=== PATIENT | male | born 1930 | race Caucasian/White ===

== ENCOUNTER 2016-08-08 23:02 | Observation (INO) ==
[2016-08-08] MEDS ORDERED: Furosemide 40 MG/4 ML VIAL IVP ONE (23:57)
[2016-08-09 00:03] LABS: Basophils # 0.1 K/mcL (0.0-0.2); Basophils % 0.5 %; Eosinophils # 0.4 K/mcL (0.0-0.6); Hemoglobin 14.2 g/dL (12.9-16.9); Immature Granulocytes % 0.4 % (0-4); Lymphocytes # 1.7 K/mcL (0.6-4.6); Lymphocytes % 16.5 %; Mean Corpuscular HGB Conc 33.8 g/dL (31.6-35.5); Mean Corpuscular Hemoglobin 34.6 pg (28.0-33.3); Mean Corpuscular Volume 102.4 fL (83.0-100.0); Mean Platelet Volume 11.5 fL (9.4-12.4); Monocytes # 0.9 K/mcL (0.0-1.3); Monocytes % 8.8 %; Neutrophils # 7.4 K/mcL (1.6-8.9); Platelet Count 142 K/mcL (140-400); Red Cell Distribution Width 12.8 % (11.5-14.5); Segmented Neutrophils % 69.8 %
[2016-08-09 00:11] LABS: Potassium 4.3 mEq/L (3.5-4.5)
--- NOTE | 2016-08-09 00:47 | Emergency Department Note ---
Disposition Clinical Impression: Dyspnea, Edema extremities Disposition: Admitted As Inpatient SOB HPI - General Chief Complaint: ED Shortness of Breath/Dyspnea Stated Complaint: "Poss. Pneumonia"/cough Time Seen by Provider: 08/08/16 23:24 Source: patient Mode of arrival: ambulatory Limitations: no limitations Nursing Notes Reviewed: Yes Vital Signs Reviewed: Yes - History of Present Illness patient presents to the ED with complaints of shortness of breath, possible pneumonia. He has been having a moist productive cough with white sputum production. He states he has had decreased energy over the last several weeks/ No reported fever. He has been having increased lower leg and pedal edema. He was recently started on Lasix 20 mg and states it has helped "a little". Denies any chest pain at this time, "maybe just a little tightness". Pt Subjective Complaint: shortness of breath Onset (ago): unknown Context: recent illness Severity: moderate Consistency/Duration: gradually worsening Improves with: nothing Worsens with: exertion Associated symptoms: Reports: sputum production, orthopnea, other (lower extremity edema ) Treatment prior to arrival: none Cough present: Yes Cough Description: Involuntary, Wheezy Cough Frequency: Intermittent Sputum production: Yes Sputum Amount: Moderate Sputum Color: White - Related Data Home oxygen amount: none Home Medications Medication Instructions Recorded Confirmed Lisinopril-HCTZ 20-12.5 [Prinzide 1 each PO DAILY 12/11/15 03/27/16 20-12.5] Omeprazole [PriLOSEC] 20 mg PO DAILY 12/11/15 03/27/16 Allergies Allergy/AdvReac Type Severity Reaction Status Date / Time Iodinated Contrast- Oral and Allergy Swelling Verified 08/08/16 23:07 IV Dye of Lip/Tongue/Throat All systems ED: reviewed and negative except as stated. Constitutional: Denies: fever, chills, weakness, weight change Eyes: Denies: eye pain, eye discharge, vision change ENT ED: Denies: ear pain, throat pain, dental pain, hearing loss, epistaxis, congestion, dysphagia Respiratory: Reports: cough, dyspnea, wheezes Gastrointestinal: Denies: abdominal pain, nausea, vomiting, diarrhea, constipation, hematemesis, melena, hematochezia Genitourinary: Denies: urgency, dysuria, frequency, hematuria Integumentary: Reports: other (pedal and lower leg edema 3+) Neurological: Denies: headache, weakness, numbness, paresthesias, confusion, abnormal gait, vertigo Endocrine: Denies: fatigue Hematological/Lymphatic: Denies: easy bleeding, easy bruising Past Medical History - Past Medical History Attestation: Yes The following information was validated with the patient. Source: patient, nursing notes reviewed Medical history: Reports: glaucoma, hypertension, RA, other Surgical history: Reports: appendectomy, cholecystectomy Psychiatric history: Reports: no psych history - Social History Smoking Status: Former smoker Smokeless Tobacco Status: No Alcohol use: Reports: occasionally Drug use: Reports: none Physical Exam - General Limitations: no limitations General appearance: alert - Head Head exam: atraumatic, normocephalic, normal inspection - Eye Eye exam: Present: normal appearance, PERRL, EOMI - ENT ENT exam: normal exam, normal oropharynx, mucous membranes moist - Neck Neck exam: Present: normal inspection, full ROM, trachea midline - Chest Chest inspection: Present: normal inspection, symmetric chest wall rise - Expanded Respiratory Exam Location: rales: Left, Right, Lower - Cardiovascular Cardiovascular exam: Present: regular rate, normal rhythm, normal heart sounds - Abdominal Exam Abdominal exam: Present: soft, Non-Tender. Absent: tenderness, distention, guarding, rebound, rigidity - Extremities Exam Extremities exam: Present: normal inspection, full ROM. Absent: tenderness, pedal edema - Expanded Lower Extremity Exam Gait: observed and normal - Back Exam Back exam: Present: normal inspection, full ROM. Absent: tenderness - Neurological Exam Neurological exam: Present: alert, oriented X3 - Psychiatric Psychiatric exam: Present: normal affect, normal mood - Skin Skin exam: Present: warm, dry, intact, normal color Course Vital Signs Temperature 98.6 F 08/08/16 23:07 Pulse Rate 77 08/08/16 23:07 Respiratory Rate 20 08/08/16 23:07 Blood Pressure 173/71 08/08/16 23:07 O2 Sat by Pulse Oximetry 95 08/08/16 23:07 Temperature 98.6 F 08/08/16 23:07 Pulse Rate 78 08/09/16 00:50 Respiratory Rate 18 08/09/16 00:50 Blood Pressure 156/79 08/09/16 00:50 O2 Sat by Pulse Oximetry 96 08/09/16 00:50 Oxygen Delivery Oxygen Delivery Room Air Shortness of Breath/Dyspnea - Lab Data Lab results reviewed: Yes I reviewed the patient's lab results. Result diagrams: 08/08/16 23:30 08/08/16 23:30 Lab Results 08/08/16 08/08/16 08/08/16 Range/Units 23:30 23:30 23:30 WBC 10.6 (4.3-11.1) K/mcL RBC 4.10 L (4.19-5.50) M/mcL Hgb 14.2 (12.9-16.9) g/dL Hct 42.0 (37.5-50.1) % MCV 102.4 H (83.0-100.0) fL MCH 34.6 H (28.0-33.3) pg MCHC 33.8 (31.6-35.5) g/dL RDW 12.8 (11.5-14.5) % Plt Count 142 (140-400) K/mcL MPV 11.5 (9.4-12.4) fL Immature Gran % 0.4 (0-4) % Seg Neutrophils % 69.8 % Lymphocytes % 16.5 % Monocytes % 8.8 % Eosinophils % 4.0 % Basophils % 0.5 % Neutrophils # 7.4 (1.6-8.9) K/mcL Lymphocytes # 1.7 (0.6-4.6) K/mcL Monocytes # 0.9 (0.0-1.3) K/mcL Eosinophils # 0.4 (0.0-0.6) K/mcL Basophils # 0.1 (0.0-0.2) K/mcL Sodium 137 (136-145) mEq/L Potassium 4.3 (3.5-4.5) mEq/L Chloride 103 (98-109) mEq/L Carbon Dioxide 24 (19-29) mEq/L BUN 38 H (8-26) mg/dL Creatinine 1.79 H (0.72-1.25) mg/dL Est GFR ( Amer) 44 L (> 60) Est GFR (Non-Af Amer) 36 L (> 60) BUN/Creatinine Ratio 21 (6-26) Glucose 171 H (70-99) mg/dL Calculated Osmolality 297 (280-300) Lactic Acid 1.3 (0.5-2.2) mmol/L Calcium 10.0 (8.6-10.8) mg/dL Troponin I (0-0.03) ng/mL B-Natriuretic Peptide (0-100) pg/mL 08/08/16 08/08/16 Range/Units 23:30 23:30 WBC (4.3-11.1) K/mcL RBC (4.19-5.50) M/mcL Hgb (12.9-16.9) g/dL Hct (37.5-50.1) % MCV (83.0-100.0) fL MCH (28.0-33.3) pg MCHC (31.6-35.5) g/dL RDW (11.5-14.5) % Plt Count (140-400) K/mcL MPV (9.4-12.4) fL Immature Gran % (0-4) % Seg Neutrophils % % Lymphocytes % % Monocytes % % Eosinophils % % Basophils % % Neutrophils # (1.6-8.9) K/mcL Lymphocytes # (0.6-4.6) K/mcL Monocytes # (0.0-1.3) K/mcL Eosinophils # (0.0-0.6) K/mcL Basophils # (0.0-0.2) K/mcL Sodium (136-145) mEq/L Potassium (3.5-4.5) mEq/L Chloride (98-109) mEq/L Carbon Dioxide (19-29) mEq/L BUN (8-26) mg/dL Creatinine (0.72-1.25) mg/dL Est GFR ( Amer) (> 60) Est GFR (Non-Af Amer) (> 60) BUN/Creatinine Ratio (6-26) Glucose (70-99) mg/dL Calculated Osmolality (280-300) Lactic Acid (0.5-2.2) mmol/L Calcium (8.6-10.8) mg/dL Troponin I 0.05 H* (0-0.03) ng/mL B-Natriuretic Peptide 144 H (0-100) pg/mL - Radiology Data Radiology results reviewed: Yes I reviewed the patient's radiology results. - EKG Data EKG attestation: Yes I reviewed and interpreted this EKG. EKG shows normal: Reports: sinus rhythm Rate: Reports: normal Rhythm: Reports: NSR Attestation Statement - Attestation Attestation: I, Yovanny Christensen MD, personally evaluated this patient and discussed their management with the midlevel provicer, PAC/PATENT SEARCHER. I reviewed the midlevel provider 's note and agree with the documented findings, medical decision making, and plan of care. 86-year-old male presents to the emergency department with a complaint of increasing cough and shortness of breath for about 2 weeks prior to arrival. Symptoms became much worse today with increased shortness of breath. He denies any chest pain but has felt a little tight in his chest. No fever. On examination patient is a well-developed well-nourished well-appearing elderly male in no acute distress. He is alert and oriented 3. There is no cyanosis or diaphoresis. Chest is nontender to palpation. Breath sounds are clear and equal bilaterally. Heart regular rate and rhythm. There is a grade 2 /6 systolic murmur. Abdomen is soft and nontender with normal bowel sounds. 2 + pedal edema. Labs reviewed. Troponin 0.05. EKG shows a sinus rhythm with a first-degree block. No STEMI. Consider lateral ischemia. Chest x-ray shows borderline cardiomegaly but no overt pulmonary edema or infiltrate. The hospitalist, Dr. Hoffmann, was consulted and accepted admission of the patient.
[2016-08-09] MEDS ORDERED: Aspirin 81 MG TAB.CHEW PO ONE (00:51)
[2016-08-09] MEDS ORDERED: Ondansetron 4 MG/2 ML VIAL IVP PRN (02:01)
[2016-08-09] MEDS ORDERED: Acetaminophen 325 MG TABLET PO PRN (02:01)
[2016-08-09] MEDS ORDERED: *HR* HYDROcodone/Acet 5/325 mg TABLET PO PRN (02:01)
[2016-08-09] MEDS ORDERED: *HR* Morphine 2 MG/ML SYRINGE IVP PRN (02:01)
[2016-08-09] MEDS ORDERED: Naloxone 0.4 MG/ML INJ IVP PRN (02:01)
[2016-08-09] MEDS ORDERED: Nitroglycerin 0.4 MG TAB.SUBL SL PRN (02:08)
--- NOTE | 2016-08-09 02:10 | Internal Med History&Physical ---
Date of Encounter: 08/09/16 Time of Encounter: 02:10 Assessment and Plan (1) Diastolic CHF, acute Current visit: Yes Status: Acute Acute diastolic CHF exacerbation, mild With bilateral severe lower extremity edema Start Lasix IV, strict I's and O's, daily weight Omeprazole for GI prophylaxis and subcutaneous heparin for DVT prophylaxis. Patient will be admitted for observation. Full code. Time spent on this admission 40 minutes. High risk of respiratory failure (2) Leg edema Current visit: Yes Status: Acute Qualifiers: Laterality: bilateral Qualified Code(s): R60.0 - Localized edema (3) Elevated troponin Current visit: Yes Status: Acute Elevated troponins likely secondary to demand ischemia Start aspirin, Lipitor, telemetry, follow troponins (4) Accelerated hypertension Current visit: Yes Status: Acute Continue lisinopril, may order hydralazine as needed Hold hydrochlorothiazide (5) Bronchitis Current visit: Yes Status: Acute Acute bronchitis viral versus bacterial likely contributing to the shortness of breath Start Rocephin (6) Acute renal failure superimposed on stage 3 chronic kidney disease Current visit: Yes Status: Acute Internal Medicine - H&P: HPI Chief complaint: Shortness of breath Admitted From: Emergency Dept History of present illness: Mr. Pond is a 86 year old male with a past medical history of diastolic dysfunction, chronic kidney disease stage III, borderline diabetes, hypertension , GERD, came to the emergency room complaining of persistent difficulty breathing that has been getting worse over the past 2 weeks. The patient complains some chest tightness on and off and mainly severe leg swelling. His creatinine has increased from 1.24 up to 1.79. Denies any chest pain at the moment his troponin is 0.05 chest x-ray shows cardiomegaly megaly and although the report does not mention anything else, it appears to have mild vascular congestion. His legs are extremely swollen. The pressure is 173/71, received 1 dose of Lasix at the emergency room. Feels weak. Says that he was started recently on Lasix 20 mg daily but apparently was not enough. Has been outside a lot and drinking lots of fluids. Has been also complaining of productive cough mainly with whitish phlegm, no sick contacts. Past Med Surg Social Fam HX - Past Medical History Medical history: CHF (Diastolic dysfunction), glaucoma, hypertension, other ( Osteoarthritis, macular degeneration, right carotid cavernous fistula, chronic kidney disease stage III, diverticulosis, focal cord tumor status post excision , asbestosis) Psychiatric history: no psych history - Past Surgical History Surgical History: appendectomy, cholecystectomy, other (Brain aneurysm embolization, vocal cord polyp removed, sinus surgery) - Social History Smoking Status: Former smoker Packs per day: Quit 50 years ago after leaving the [email or web address] Smokeless Tobacco Status: No Alcohol use: occasionally Drug use: none - Additional Family History Additional family history: Father with cancer, mother with gastric and liver cancer Internal Medicine - H&P: Meds Lisinopril-HCTZ 20-12.5 [Prinzide 20-12.5] 1 each PO DAILY 12/11/15 [History] Omeprazole [PriLOSEC] 20 mg PO DAILY 12/11/15 [History] Allergies Iodinated Contrast- Oral and IV Dye Allergy (Verified 08/08/16 23:07) Swelling of Lip/Tongue/Throat All Systems PM: A 10-system review of systems was performed and is negative for pertinent findings except as documented above in the HPI. Review of systems: Persistent shortness of breath. Other systems out of the 10 reviewed were negative - Constitutional Vitals: Temp Pulse Resp BP Pulse Ox 98.6 F 78 18 156/79 96 08/08/16 23:07 08/09/16 00:50 08/09/16 00:50 08/09/16 00:50 08/09/16 00:50 General appearance: Present: A&O X 3 - Head Head exam: Present: atraumatic, normocephalic - Eye Eye exam: Present: PERRL, conjuntiva pink, sclera anicteric Pupils: Present: PERRL - Neck Neck exam general surgery: Present: supple, trachea midline. Absent: lymphadenopathy - Respiratory Respiratory exam: Present: CTAB, rales (Findings diffuse basilar crackles). Absent: accessory muscle use, rhonchi, wheezes - Cardiovascular Cardiovascular exam: Present: RRR, +S1, +S2. Absent: diastolic murmur, gallop, rubs, systolic murmur - GI/Abdominal GI/Abdominal exam: Present: normal bowel sounds, soft, no peritoneal signs. Absent: distended, tenderness - Extremities Exam Extremities exam: Present: pedal edema (+3 pitting edema in both lower extremities with a small excoriations), warm, radial pulses palpable and symetrical. Absent: calf tenderness, cyanotic - Neurological Exam Neurological exam: Present: CN II-XII intact, oriented X3, no focal deficits. Absent: pronater drift, facial droop, speech deficit - Skin Skin exam: Present: dry, intact Internal Med - H&P Results - Labs CBC & Chem 7: 08/08/16 23:30 08/08/16 23:30
[2016-08-09] MEDS: *HR* Enoxaparin 40 MG/0.4 ML SYRINGE SQ SCH (05:47)
[2016-08-09] MEDS: Aspirin Enteric Coated 81 MG Tablet PO SCH (09:23)
[2016-08-09] MEDS: Lisinopril 20 MG TABLET PO SCH (09:23)
[2016-08-09] MEDS: Furosemide 40 MG/4 ML VIAL IVP SCH ×2 (09:23→21:09)
[2016-08-09] MEDS ORDERED: Albuterol 2.5 MG/3 ML NEBULIZER IH PRN (09:40)
--- NOTE | 2016-08-09 10:47 | Event Note ---
Date of Encounter: 08/09/16 Time of Encounter: 09:20 Patient was seen and assessed this morning at about 9:20 AM. He is wearing a mask in his room because he does not want to make the rest of the sick. Patient is pleasant, alert and oriented. He is not in respiratory distress and speaks easily in full sentences. He is not requiring supplemental oxygen. His lungs are clear and diminished anteriorly and posteriorly. There is no rhonchi , wheezing, Rales, or stridor. Patient does have a heart murmur. He is also being admitted for diastolic CHF. Patient had echocardiogram done in April of this year, ejection fraction is preserved, and it showed mild concentric left ventricular hypertrophy and mild diastolic dysfunction. He also had a stress test about the same time that was negative for ischemia or infarct. Patient states that he was unaware that he had congestive heart failure. His BNP is only slightly elevated at 144. His initial troponins were elevated at 0.05 and 0.04. The last troponin this morning at about 10 AM was 0.02. He does have +2-3 nonpitting bilateral ankle and pedal edema. He says this is normal for him. He will be getting IV Lasix, strict I&O, and daily weights. Patient does not have a history of COPD. His chest x-ray in the emergency department was negative, his lungs are clear and diminished, he has no leukocytosis and no fever. He was treated initially in the emergency department with Rocephin for possible bronchitis. He does report that his chest feels tight. I will hold antibiotics for right now and monitor patient condition and vital signs. Will treat with DuoNeb nebs and albuterol nebs when necessary. Creatinine is elevated at 1.79. Patient is getting Lasix 40 mg IV twice a day. We will need to closely monitor his volume status. Patient is on telemetry. Is not having chest pain or difficulty breathing. Continue to monitor his blood pressure.
[2016-08-09] MEDS: Ipratropium/Albuterol Neb 3 ML IH SCH ×4 (11:12→23:59)
[2016-08-10 03:54] LABS: Basophils % 0.5 %; Eosinophils # 0.3 K/mcL (0.0-0.6); Eosinophils % 3.6 %; Hematocrit 40.4 % (37.5-50.1); Hemoglobin 13.6 g/dL (12.9-16.9); Immature Granulocytes % 0.3 % (0-4); Lymphocytes # 1.8 K/mcL (0.6-4.6); Lymphocytes % 22.9 %; Mean Corpuscular HGB Conc 33.7 g/dL (31.6-35.5); Mean Corpuscular Hemoglobin 34.6 pg (28.0-33.3); Mean Corpuscular Volume 102.8 fL (83.0-100.0); Mean Platelet Volume 11.6 fL (9.4-12.4); Monocytes # 0.9 K/mcL (0.0-1.3); Monocytes % 11.3 %; Neutrophils # 4.7 K/mcL (1.6-8.9); Platelet Count 144 K/mcL (140-400); Red Blood Count 3.93 M/mcL (4.19-5.50); Red Cell Distribution Width 12.7 % (11.5-14.5); Segmented Neutrophils % 61.4 %
[2016-08-10 04:02] LABS: Calcium 9.3 mg/dL (8.6-10.8); Potassium 3.9 mEq/L (3.5-4.5)
[2016-08-10] MEDS: Ipratropium/Albuterol Neb 3 ML IH SCH ×6 (04:16→23:46)
[2016-08-10] MEDS: *HR* Enoxaparin 40 MG/0.4 ML SYRINGE SQ SCH (05:52)
[2016-08-10] MEDS: Aspirin Enteric Coated 81 MG Tablet PO SCH (08:19)
[2016-08-10] MEDS: Furosemide 40 MG/4 ML VIAL IVP SCH (08:19)
[2016-08-10] MEDS: Lisinopril 20 MG TABLET PO SCH (08:19)
--- NOTE | 2016-08-10 09:53 | Electrocardiograph Report ---
[address] [place], [place] [address] Test Date: 2016-08-09 Pat Name: Wood Pond Department: [id number] Room: 3B12 Gender: M [employer]: : [id number] Requested By: Magui Chaves Order Number: [id number] Reading MD: Caden Huffman MD Measurements Intervals [place] Rate: 71 P: 6 PA: 227 QRS: -51 QRSD: 114 T: 112 QT: 402 QTc: 424 Interpretive Statements SINUS RHYTHM WITH FIRST DEGREE AV BLOCK MARKED LEFT AXIS DEVIATION VOLTAGE CRITERIA FOR LVH LATERAL ISCHEMIA Electronically Signed On 08-10-2016 9:52:14 EDT by Caden Huffman MD
--- NOTE | 2016-08-10 14:05 | Internal Med Progress Note ---
Date of Encounter: 08/10/16 Time of Encounter: 10:40 - Assessment and plan (1) Diastolic CHF, acute Current Visit: Yes Status: Acute Assessment and plan: Echocardiogram done in April, showed preserved ejection fraction, mild concentric left ventricular hypertrophy, and mild diastolic dysfunction. Stress test was done about that same time that was negative for ischemia or infarct. Patient states initially that he was unaware that he had congestive heart failure. BNP was only slightly elevated on admission at 144. Initial troponins were 0.05 and 0.04 and then last one was 0.02. These are most likely elevated due to demand ischemia from the CHF. He does have +2 nonpitting bilateral ankle edema and mild pedal edema. He says this is normal for him only may be slight little bit worse today. Patient was getting IV Lasix 40 mg twice a day, due to his renal function, I have decreased it to 40 mg IV daily. We will continue to monitor his volume status. Lungs are clear diminished. Continue telemetry Lasix 40 mg IV daily Monitor pedal edema (2) Leg edema Current Visit: Yes Status: Acute Assessment and plan: Plan as above Qualifiers: Laterality: bilateral Qualified Code(s): R60.0 - Localized edema (3) Elevated troponin Current Visit: Yes Status: Acute Assessment and plan: Elevated troponin on initial presentation, most likely due to demand ischemia. Last level was within normal limits at 0.02. Continue telemetry (4) Accelerated hypertension Current Visit: Yes Status: Chronic Assessment and plan: Well-controlled in inpatient setting. Chronic. Continue home medications. (5) Bronchitis Current Visit: Yes Status: Acute Assessment and plan: Patient has no leukocytosis, no fever. He was being treated with Rocephin for bronchitis. He does say that his chest feels tight. His lungs are clear but diminished. He has been treated with duo nebs albuterol nebs were necessary. Antibiotics were stopped yesterday continue to monitor patient condition. (6) DVT prophylaxis Current Visit: Yes Status: Acute Assessment and plan: Lovenox (7) ITALO (acute kidney injury) Current Visit: Yes Status: Acute Assessment and plan: Patient presents with elevated creatinine. In reviewing prior trend, creatinines have been within normal limits. Most likely prerenal due to dehydration. I have decreased the Lasix since yesterday and renal function has improved slightly. If creatinine does not improve, consider retroperitoneal ultrasound and nephrology consult. Patient also appears to have mild CHF. We will need to monitor volume status. - Time Spent With Patient less than 15 minutes - Subjective Interval history: Patient was seen and assessed at about 10:40 AM. He is alert and oriented resting quietly in his room. His lungs are clear and diminished posteriorly. We did discuss him staying again due to his renal function, it does appear to be improving today. I have decreased his Lasix to 40 mg daily instead of 40 mg twice a day. Peripheral edema appears to be unchanged, patient states that he normally has peripheral edema but this is slightly worse than normal. We will continue to monitor his volume status. - Constitutional Vitals: Temp Pulse Resp BP Pulse Ox 97 F L 78 14 116/58 93 08/10/16 10:59 08/10/16 10:59 08/10/16 11:12 08/10/16 10:59 08/10/16 11:12 General appearance: Present: A&O X 3, pleasant, no acute distress, answers questions appropriately - Head Head exam: Present: normal inspection - Eye Eye exam: Present: EOMI, normal appearance, conjuntiva pink - ENT ENT exam: Present: mucous membranes moist, normal exam - Neck Neck exam general surgery: Present: normal inspection. Absent: lymphadenopathy , tenderness - Respiratory Respiratory exam: Present: decreased breath sounds, CTAB. Absent: rales, respiratory distress, rhonchi, stridor, wheezes - Cardiovascular Cardiovascular exam: Present: RRR, +S1, +S2. Absent: diastolic murmur, systolic murmur - GI/Abdominal GI/Abdominal exam: Present: normal bowel sounds, soft. Absent: distended, tenderness - Extremities Exam Extremities exam: Present: normal capillary refill, normal inspection, pedal edema, warm, radial pulses palpable and symetrical. Absent: tenderness - Neurological Exam Neurological exam: Present: alert, oriented X3, no focal deficits, strengths equal and symetr throughout. Absent: facial droop, speech deficit Internal Medicine: Result - Labs CBC & Chem 7: 08/10/16 03:14 08/10/16 03:14 Labs: Short CBC 08/10/16 Range/Units 03:14 WBC 7.7 (4.3-11.1) K/mcL Hgb 13.6 (12.9-16.9) g/dL Hct 40.4 (37.5-50.1) % Plt Count 144 (140-400) K/mcL Neutrophils # 4.7 (1.6-8.9) K/mcL BMP 08/10/16 03:14 Sodium 139 Potassium 3.9 Chloride 98 Carbon Dioxide 30 H BUN 39 H Creatinine 1.70 H Glucose 145 H Calcium 9.3 Consult Discharge Plan - Plan Referrals: Pranav Whitfield MD [Primary Care Provider] -
[2016-08-11] MEDS: Ipratropium/Albuterol Neb 3 ML IH SCH ×3 (03:38→11:18)
[2016-08-11] MEDS: *HR* Enoxaparin 40 MG/0.4 ML SYRINGE SQ SCH (05:49)
[2016-08-11 06:17] LABS: Basophils % 0.4 %; Eosinophils # 0.5 K/mcL (0.0-0.6); Eosinophils % 5.2 %; Hematocrit 40.1 % (37.5-50.1); Hemoglobin 13.7 g/dL (12.9-16.9); Immature Granulocytes % 0.4 % (0-4); Lymphocytes % 22.5 %; Mean Corpuscular HGB Conc 34.2 g/dL (31.6-35.5); Mean Corpuscular Hemoglobin 34.7 pg (28.0-33.3); Mean Corpuscular Volume 101.5 fL (83.0-100.0); Mean Platelet Volume 11.8 fL (9.4-12.4); Monocytes # 0.9 K/mcL (0.0-1.3); Monocytes % 10.4 %; Neutrophils # 5.5 K/mcL (1.6-8.9); Platelet Count 162 K/mcL (140-400); Red Blood Count 3.95 M/mcL (4.19-5.50); Red Cell Distribution Width 12.8 % (11.5-14.5); Segmented Neutrophils % 61.1 %
[2016-08-11 06:33] LABS: Calcium 9.3 mg/dL (8.6-10.8); Potassium 4.1 mEq/L (3.5-4.5)
[2016-08-11] MEDS: Furosemide 40 MG/4 ML VIAL IVP SCH (09:45)
[2016-08-11] MEDS: Aspirin Enteric Coated 81 MG Tablet PO SCH (09:46)
[2016-08-11 11:04] VITALS: BP 150/67
[2016-08-11] MEDS: Lisinopril 20 MG TABLET PO SCH (11:25)
--- NOTE | 2016-08-11 12:00 | Discharge Summary ---
Date of Encounter: 08/11/16 Time of Encounter: 10:00 - Discharge Diagnosis (1) Diastolic heart failure Priority: Primary Status: Acute Comments: Treated for acute exacerbation. Patient denied shortness of breath above his norm and stated his pedal edema had resolved to its baseline. Echocardiogram from April revealing preserved ejection fraction of 65% with mild diastolic dysfunction. Qualifiers: Heart failure chronicity: acute on chronic Qualified Code(s): I50.33 - Acute on chronic diastolic (congestive) heart failure (2) RAD (reactive airway disease) Priority: Primary Status: Acute Comments: Symptoms consistent with bronchitis/reactive airway disease. Wheezing improves with inhaler usage. Will initiate Singulair and albuterol as needed Qualifiers: Asthma severity: unspecified severity Asthma complication type: with acute exacerbation Qualified Code(s): J45.901 - Unspecified asthma with (acute) exacerbation (3) Bronchitis Priority: Primary Status: Acute (4) Elevated troponin Priority: Primary Status: Resolved Comments: Consistent with demand ischemia secondary to accelerated hypertension upon arrival. Patient denied shortness of breath or chest pain on day of discharge. Low suspicion for ACS. (5) Accelerated hypertension Priority: Primary Status: Resolved (6) HTN (hypertension) Priority: Secondary Status: Chronic Comments: Borderline hypertensive at time of discharge however the patient's HCTZ was held secondary to acute kidney injury, resumed on day of discharge. Recommend daily blood pressure checks at home, keeping a log, and following up outpatient. (7) Acute renal failure superimposed on stage 3 chronic kidney disease Priority: Secondary Status: Chronic Comments: Acute kidney injury superimposed on chronic kidney disease stage III resolved. Consistent with baseline on day of discharge, follow-up outpatient. (8) DVT prophylaxis Priority: Primary Status: Acute Comments: Therapeutic on Coumadin on day of discharge INR 2.2 - Discharge Medications Prescriptions: Albuterol Sulfate [Albuterol Inhaler] 2 puff IH Q4HR PRN #1 hfa.aer.ad PRN Reason: Shortness Of Breath GuaiFENesin ER [Mucinex] 600 mg PO BID #14 tbbp.12hr Montelukast [Singulair] 10 mg PO HS #30 tablet predniSONE [PredniSONE] 40 mg PO DAILY #10 tablet Home Medications: Lisinopril-HCTZ 20-12.5 [Prinzide 20-12.5] 1 tab PO BID 12/11/15 [History] Omeprazole [PriLOSEC] 20 mg PO DAILY 12/11/15 [History] Furosemide [Lasix] 40 mg PO DAILY 08/09/16 [History] Albuterol Sulfate [Albuterol Inhaler] 2 puff IH Q4HR PRN #1 hfa.aer.ad 08/11/16 [Rx] GuaiFENesin ER [Mucinex] 600 mg PO BID #14 tbbp.12hr 08/11/16 [Rx] Montelukast [Singulair] 10 mg PO HS #30 tablet 08/11/16 [Rx] predniSONE [PredniSONE] 40 mg PO DAILY #10 tablet 08/11/16 [Rx] Allergies/Adverse Reactions: Allergies Iodinated Contrast- Oral and IV Dye Allergy (Verified 08/08/16 23:07) Swelling of Lip/Tongue/Throat Date of admission: 08/09/16 01:46 Primary care physician: Pranav Whitfield MD Consults: 08/09/16 02:02 Consult to Nurse Navigator [CONS] Routine Comment: 08/09/16 16:58 Consult to Cardroom Worker [CONS] Routine Reason for SW Consult: financial concerns Discharging clinician: Annette Villagran Anticipated date of discharge: 08/11/16 - Patient Status Disposition: Home, Self-Care Condition: Fair Functional capacity at discharge: independent ambulation Overall status at discharge: patient is progressing back to baseline - Discharge Instructions Follow Up With: Pranav Whitfield MD [Primary Care Provider] - 08/20/16 11:00 am Additional Instructions: Follow-up with primary care provider as scheduled. Limit fluid intake to 1.5 L per day - Diet and Activity Activity: increase activity as tolerated Diet: diabetic diet, low fat, low cholesterol, low salt diet (Fluid restriction 1.5 L per day) Hospital course: Mr. Pond is a 86 year old male with past medical history of diastolic heart failure, chronic kidney disease stage III, diabetes, hypertension, GERD, remote tobacco abuse 50 years ago. Patient presented to the emergency department chief complaint difficulty breathing that had worsened over the past 2 weeks prior to presentation. Patient also complained of chest tightness intermittently as well as severe swelling to his legs. Workup in the emergency department revealing acute kidney injury superimposed on chronic kidney disease , borderline elevated troponin. Chest x-ray consistent with cardiomegaly without acute processes. Patient was also hypertensive upon arrival. Patient was admitted to the hospitalist service for further evaluation and management. He was diuresed with IV furosemide. Renal functioning improved and was consistent with his baseline on day of discharge. He was admitted and observed over the course of 2 nights. Elevated troponin resolved, likely demand ischemia secondary to hypertensive urgency upon presentation. Blood cultures were negative. Patient denied chest pain while admitted. On day of discharge, he denied shortness of breath above his norm and stated his pedal edema had returned to its baseline. Patient did continue with a dry and intermittently productive cough with diffuse wheezing however he denied shortness of breath above his norm. Symptoms consistent with bronchitis/viral URI. No leukocytosis or fever. No indication for antibiotics upon disposition. Treated with guaifenesin while admitted. Patient was ambulatory and consistent with his baseline without limitations. He was educated on fluid and sodium restricted diets. Patient stating he had been outside in the heat a lot and had been drinking a lot of fluids. He was also started on an albuterol inhaler as needed as well as singulair as his wheezing appears consistent with RAD- followup ouptatient. He was discharged home in stable condition with close outpatient follow-up recommended. ITS Impressions Chest X-Ray 08/08/16 23:46 IMPRESSION: Borderline cardiomegaly, no acute pulmonary process. D/ / Ever Sterling MD / Ever Sterling MD Interpreting Provider: Ever Sterling MD - Time Spent with Patient Total time spent providing and/or coordinating discharge services: - Constitutional Vitals: Temp Pulse Resp BP Pulse Ox 98.2 F 52 16 150/67 95 08/11/16 11:02 08/11/16 11:02 08/11/16 11:02 08/11/16 11:02 08/11/16 11:02 General appearance: Present: A&O X 3, pleasant, no acute distress, answers questions appropriately - Head Head exam: Present: atraumatic, normocephalic - Eye Eye exam: Present: PERRL, conjuntiva pink, sclera anicteric Pupils: Present: PERRL - Neck Neck exam general surgery: Present: supple, trachea midline. Absent: lymphadenopathy - Respiratory Respiratory exam: Present: decreased breath sounds, wheezes. Absent: accessory muscle use, rales, respiratory distress, rhonchi - Cardiovascular Cardiovascular exam: Present: RRR, +S1, +S2. Absent: diastolic murmur, gallop, rubs, systolic murmur - GI/Abdominal GI/Abdominal exam: Present: normal bowel sounds, soft, no peritoneal signs. Absent: distended, tenderness - Extremities Exam Extremities exam: Present: pedal edema (non pitting), warm, radial pulses palpable and symetrical. Absent: calf tenderness, cyanotic - Neurological Exam Neurological exam: Present: alert, CN II-XII intact, normal gait, oriented X3, no focal deficits, strengths equal and symetr throughout. Absent: pronater drift, facial droop, speech deficit - Skin Skin exam: Present: dry, intact, normal color, warm
== END 2016-08-11 13:45 | disposition home or self-care (01) ==
LOC: 3BNU 23:02 → EMEROO 23:02 → SUATTDRO 08-09 01:46 → 3BNU 08-09 02:39
PROVIDERS: ADMIT Internal Medicine Sleep Medicine; ATTEND Nurse Practitioner Family

== ENCOUNTER 2017-06-28 20:26 | Inpatient (IN) ==
[2017-06-28] MEDS ORDERED: Aspirin 325 MG TABLET PO ONE (20:37)
--- NOTE | 2017-06-28 20:43 | Emergency Department Note ---
Disposition Clinical Impression: NSTEMI (non-ST elevated myocardial infarction), History of aortic stenosis Syncope Qualifiers: Syncope type: unspecified Qualified Code(s): R55 - Syncope and collapse Disposition: Admitted As Inpatient Condition: Undetermined Referrals: Pranav Whitfield MD [Primary Care Provider] - Forms: ED Satisfaction Letter Time of Disposition: 22:14 Chest Pain HPI - General Chief Complaint: ED Chest Pain Stated Complaint: Syncope Time Seen by Provider: 06/28/17 20:28 Source: patient Mode of arrival: ambulatory Limitations: no limitations Vital Signs Reviewed: Yes Nursing Notes Reviewed: Yes - History of Present Illness HPI Narrative: 87-year-old male with history of aortic stenosis, arrives to the emergency department with complaint of syncope while he was cutting grass. The patient states he was straining very hard and syncopized and fell for instructed face and head on the ground. The patient states that when he woke up he is complaining of chest pain. The patient states that this chest pain is continued. He denies any shortness of breath. He denies any other complaints other than some associated head and neck pain. He denies any numbness, tingling , difficulty breathing. He denies any unilateral leg swelling, recent surgeries , history DVT or PE, hemoptysis. Severity scale (1-10): 2 - Related Data Home Medications Medication Instructions Recorded Confirmed Lisinopril-HCTZ 20-12.5 [Prinzide 1 tab PO DAILY 12/11/15 06/28/17 20-12.5] Omeprazole [PriLOSEC] 20 mg PO DAILY 12/11/15 06/28/17 Furosemide [Lasix] 40 mg PO DAILY 08/09/16 06/28/17 Magnesium Oxide [Magnesium] 400 mg PO TID 06/28/17 06/28/17 Previous Rx's Medication Instructions Recorded Albuterol Sulfate [Albuterol 2 puff IH Q4HR PRN #1 hfa.aer.ad 08/11/16 Inhaler] Montelukast [Singulair] 10 mg PO HS #30 tablet 08/11/16 Allergies Allergy/AdvReac Type Severity Reaction Status Date / Time Iodinated Contrast- Oral and Allergy Swelling Verified 08/08/16 23:07 IV Dye of Lip/Tongue/Throat All systems ED: reviewed and negative except as stated. Constitutional: Denies: fever ENT ED: Denies: congestion Cardiovascular: Reports: chest pain, dyspnea on exertion, syncope. Denies: orthopnea, edema Respiratory: Denies: dyspnea Gastrointestinal: Denies: abdominal pain Genitourinary: Denies: urgency, dysuria Musculoskeletal: Denies: back pain Integumentary: Denies: rash Neurological: Denies: headache Chest Pain PMH - Past Medical History Medical history: Reports: glaucoma, hypertension, RA, other Surgical history: Reports: appendectomy, cholecystectomy Psychiatric history: Reports: no psych history - Social History Smoking Status: Former smoker Alcohol use: Reports: occasionally Drug use: Reports: none Physical Exam - General Limitations: no limitations General appearance: alert, in no apparent distress - Head Head exam: other (Small abrasions to right tempple and nasal bridge.) - Eye Eye exam: Present: normal appearance, PERRL, EOMI - ENT ENT exam: normal exam, normal oropharynx, mucous membranes moist - Neck Neck exam: Present: normal inspection, full ROM, trachea midline - Chest Chest inspection: Present: normal inspection, symmetric chest wall rise - Respiratory Respiratory exam: Present: normal lung sounds bilaterally - Cardiovascular Cardiovascular exam: Present: regular rate, normal rhythm, normal heart sounds, systolic murmur (Grade 3) - Abdominal Exam Abdominal exam: Present: soft, Non-Tender. Absent: tenderness, distention, guarding, rebound, rigidity - Extremities Exam Extremities exam: Present: full ROM, other (Chronic venous stasis changes). Absent: tenderness, pedal edema, calf tenderness - Neurological Exam Neurological exam: Present: alert, oriented X3 - Skin Skin exam: Present: warm, dry, intact, normal color Course - Consultations Consultation #1: We spoke with cardiology, Dr. Feliz, who recommended heparin if no a conch indications are present. They will consult on the patient. Consult placed. Time: 21:30 Vital Signs Temperature 97.9 F 06/28/17 20:31 Pulse Rate 86 06/28/17 20:31 Respiratory Rate 20 06/28/17 20:31 Blood Pressure 121/88 06/28/17 20:31 O2 Sat by Pulse Oximetry 98 06/28/17 20:31 Temperature 97.9 F 06/28/17 20:31 Pulse Rate 86 06/28/17 21:08 Respiratory Rate 18 06/28/17 21:08 Blood Pressure 152/78 06/28/17 21:08 O2 Sat by Pulse Oximetry 97 06/28/17 21:08 Oxygen Delivery Oxygen Delivery Room Air Chest Pain - MDM Narrative Medical decision making narrative: Workup in the emergency department demonstrates findings consistent with an in STEMI. The patient has no EKG changes. The patient's troponin is 0.18. After speaking with cardiology, they stated that they recommended placing the patient on heparin drip and they will see the patient in consult. The patient was also given aspirin here in the emergency department. Head CT and cervical spine CT demonstrated no acute process. We will admit the patient to the hospital at this time, accepted by Dr. Garcia. - Lab Data Lab results reviewed: Yes I reviewed the patient's lab results. Result diagrams: 06/28/17 20:35 06/28/17 20:35 Lab Results 06/28/17 06/28/17 06/28/17 Range/Units 20:35 20:35 20:35 WBC 8.8 (4.3-11.1) K/mcL RBC 4.31 (4.19-5.50) M/mcL Hgb 15.4 (12.9-16.9) g/dL Hct 43.5 (37.5-50.1) % MCV 100.9 H (83.0-100.0) fL MCH 35.7 H (28.0-33.3) pg MCHC 35.4 (31.6-35.5) g/dL RDW 13.1 (11.5-14.5) % Plt Count 161 (140-400) K/mcL MPV 10.8 (9.4-12.4) fL Immature Gran % 0.8 (0-4) % Seg Neutrophils % 68.3 % Lymphocytes % 21.9 % Monocytes % 7.3 % Eosinophils % 1.1 % Basophils % 0.6 % Neutrophils # 6.0 (1.6-8.9) K/mcL Lymphocytes # 1.9 (0.6-4.6) K/mcL Monocytes # 0.6 (0.0-1.3) K/mcL Eosinophils # 0.1 (0.0-0.6) K/mcL Basophils # 0.1 (0.0-0.2) K/mcL PT 12.4 H (9.4-12.1) Seconds INR 1.1 APTT 29.8 (26.0-36.0) Seconds Sodium 136 (136-145) mEq/L Potassium 4.1 (3.5-5.1) mEq/L Chloride 100 (98-107) mEq/L Carbon Dioxide 27 (23-29) mEq/L BUN 29 H (8-23) mg/dL Creatinine 1.58 H (0.70-1.30) mg/dL Est GFR ( Amer) 51 L (> 60) Est GFR (Non-Af Amer) 42 L (> 60) BUN/Creatinine Ratio 18 (6-26) Glucose 197 H (70-105) mg/dL Calculated Osmolality 293 (280-300) Calcium 9.6 (8.6-10.3) mg/dL Troponin I 0.18 H* (< 0.04) ng/mL - Radiology Data Radiology results reviewed: Yes I reviewed the patient's radiology results. Cervical Spine CT 06/28/17 20:37 IMPRESSION: No acute intracranial abnormality. No acute abnormality of the cervical spine. D/ / Isabella Jeong Cha, MD / Isabella Jeong Cha, MD Interpreting Provider: Isabella Jeong Cha, MD Chest X-Ray 06/28/17 20:37 IMPRESSION: 1. Mild opacity at the left lung base which are favored to reflect atelectasis. Focal infiltrate cannot entirely be excluded in the appropriate clinical setting. D/ / Oniel Jimenez MD / Oniel Jimenez MD Interpreting Provider: Oniel Jimenez MD Head CT 06/28/17 20:37 IMPRESSION: No acute intracranial abnormality. No acute abnormality of the cervical spine. D/ / Isabella Jeong Cha, MD / Isabella Jeong Cha, MD Interpreting Provider: Isabella Jeong Cha, MD - EKG Data EKG attestation: Yes I reviewed and interpreted this EKG. EKG results narrative: Heart rate 96 bpm. Normal sinus rhythm with left bundle branch block. P waves and noted on the EKG despite read of atrial fibrillation. No ST elevation or ST depression noted. EKG similar in appearance to EKG of from 08/09/2016. No acute changes noted.
[2017-06-28 20:49] LABS: Basophils # 0.1 K/mcL (0.0-0.2); Basophils % 0.6 %; Eosinophils # 0.1 K/mcL (0.0-0.6); Eosinophils % 1.1 %; Hematocrit 43.5 % (37.5-50.1); Hemoglobin 15.4 g/dL (12.9-16.9); Immature Granulocytes % 0.8 % (0-4); Lymphocytes # 1.9 K/mcL (0.6-4.6); Lymphocytes % 21.9 %; Mean Corpuscular HGB Conc 35.4 g/dL (31.6-35.5); Mean Corpuscular Hemoglobin 35.7 pg (28.0-33.3); Mean Corpuscular Volume 100.9 fL (83.0-100.0); Mean Platelet Volume 10.8 fL (9.4-12.4); Monocytes # 0.6 K/mcL (0.0-1.3); Monocytes % 7.3 %; Platelet Count 161 K/mcL (140-400); Red Blood Count 4.31 M/mcL (4.19-5.50); Red Cell Distribution Width 13.1 % (11.5-14.5); Segmented Neutrophils % 68.3 %
[2017-06-28 20:58] LABS: INR 1.1; Prothrombin Time 12.4 Seconds (9.4-12.1)
[2017-06-28 21:01] LABS: Activated Partial Thrombo Time 29.8 Seconds (26.0-36.0)
[2017-06-28 21:10] LABS: Calcium 9.6 mg/dL (8.6-10.3); Potassium 4.1 mEq/L (3.5-5.1)
[2017-06-28 21:18] LABS: Troponin I 0.18 ng/mL (< 0.04)
[2017-06-28] MEDS ORDERED: *HR* Heparin 5,000 UNIT/ML VIAL IVP PRN ×2 (21:39)
[2017-06-28] MEDS ORDERED: *HR* Heparin 5,000 UNIT/ML VIAL IVP ONE (21:39)
--- NOTE | 2017-06-28 21:44 | Emergency Department Note ---
Disposition Clinical Impression: NSTEMI (non-ST elevated myocardial infarction), History of aortic stenosis Syncope Qualifiers: Syncope type: unspecified Qualified Code(s): R55 - Syncope and collapse Disposition: Admitted As Inpatient Condition: Undetermined Referrals: Pranav Whitfield MD [Primary Care Provider] - Forms: ED Satisfaction Letter General Adult HPI - General Chief complaint: ED Chest Pain Stated complaint: Syncope Time Seen by Provider: 06/28/17 20:28 Source: patient Mode of arrival: ambulatory Limitations: no limitations - History of Present Illness Pain Scale: 2 - Related Data Home Medications Medication Instructions Recorded Confirmed Lisinopril-HCTZ 20-12.5 [Prinzide 1 tab PO DAILY 12/11/15 06/28/17 20-12.5] Omeprazole [PriLOSEC] 20 mg PO DAILY 12/11/15 06/28/17 Furosemide [Lasix] 40 mg PO DAILY 08/09/16 06/28/17 Magnesium Oxide [Magnesium] 400 mg PO TID 06/28/17 06/28/17 Previous Rx's Medication Instructions Recorded Albuterol Sulfate [Albuterol 2 puff IH Q4HR PRN #1 hfa.aer.ad 08/11/16 Inhaler] Montelukast [Singulair] 10 mg PO HS #30 tablet 08/11/16 Allergies Allergy/AdvReac Type Severity Reaction Status Date / Time Iodinated Contrast- Oral and Allergy Swelling Verified 08/08/16 23:07 IV Dye of Lip/Tongue/Throat Constitutional: Denies: fever ENT ED: Denies: congestion Cardiovascular: Reports: chest pain, dyspnea on exertion, syncope. Denies: orthopnea, edema Respiratory: Denies: dyspnea Gastrointestinal: Denies: abdominal pain Genitourinary: Denies: urgency, dysuria Musculoskeletal: Denies: back pain Integumentary: Denies: rash Neurological: Denies: headache Past Medical History - Past Medical History Medical history: Reports: glaucoma, hypertension, RA, other Surgical history: Reports: appendectomy, cholecystectomy Psychiatric history: Reports: no psych history - Social History Smoking Status: Former smoker Smokeless Tobacco Status: No Alcohol use: Reports: occasionally Drug use: Reports: none Physical Exam - General Limitations: no limitations General appearance: alert, in no apparent distress Course Vital Signs Temperature 97.9 F 06/28/17 20:31 Pulse Rate 86 06/28/17 20:31 Respiratory Rate 20 06/28/17 20:31 Blood Pressure 121/88 06/28/17 20:31 O2 Sat by Pulse Oximetry 98 06/28/17 20:31 Temperature 97.9 F 06/28/17 20:31 Pulse Rate 86 06/28/17 21:08 Respiratory Rate 18 06/28/17 21:08 Blood Pressure 152/78 06/28/17 21:08 O2 Sat by Pulse Oximetry 97 06/28/17 21:08 Oxygen Delivery Oxygen Delivery Room Air Medical Decision Making - Lab Data Result diagrams: 06/28/17 20:35 06/28/17 20:35 Lab Results 06/28/17 06/28/17 06/28/17 Range/Units 20:35 20:35 20:35 WBC 8.8 (4.3-11.1) K/mcL RBC 4.31 (4.19-5.50) M/mcL Hgb 15.4 (12.9-16.9) g/dL Hct 43.5 (37.5-50.1) % MCV 100.9 H (83.0-100.0) fL MCH 35.7 H (28.0-33.3) pg MCHC 35.4 (31.6-35.5) g/dL RDW 13.1 (11.5-14.5) % Plt Count 161 (140-400) K/mcL MPV 10.8 (9.4-12.4) fL Immature Gran % 0.8 (0-4) % Seg Neutrophils % 68.3 % Lymphocytes % 21.9 % Monocytes % 7.3 % Eosinophils % 1.1 % Basophils % 0.6 % Neutrophils # 6.0 (1.6-8.9) K/mcL Lymphocytes # 1.9 (0.6-4.6) K/mcL Monocytes # 0.6 (0.0-1.3) K/mcL Eosinophils # 0.1 (0.0-0.6) K/mcL Basophils # 0.1 (0.0-0.2) K/mcL PT 12.4 H (9.4-12.1) Seconds INR 1.1 APTT 29.8 (26.0-36.0) Seconds Sodium 136 (136-145) mEq/L Potassium 4.1 (3.5-5.1) mEq/L Chloride 100 (98-107) mEq/L Carbon Dioxide 27 (23-29) mEq/L BUN 29 H (8-23) mg/dL Creatinine 1.58 H (0.70-1.30) mg/dL Est GFR ( Amer) 51 L (> 60) Est GFR (Non-Af Amer) 42 L (> 60) BUN/Creatinine Ratio 18 (6-26) Glucose 197 H (70-105) mg/dL Calculated Osmolality 293 (280-300) Calcium 9.6 (8.6-10.3) mg/dL Troponin I 0.18 H* (< 0.04) ng/mL Attestation Statement - Attestation Attestation: I examined this patient and my medical decision-making was reviewed with the Resident Physician. I agree with the documented findings, disposition and treatment plan as described except to the extent set forth below. 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 Upon consultation with cardiology we will admit to medicine with heparin drip. Patinet is at baseline and not commplainfg of chest pain at this time.
[2017-06-28] MEDS: Heparin 25,000 UNIT/500 ML D5W 25,000 UNIT/500 ML BAG IVC SCH (21:58)
[2017-06-28] MEDS ORDERED: Naloxone 0.4 MG/ML INJ IVP PRN (23:34)
[2017-06-28] MEDS ORDERED: Ketorolac 15 MG/ML VIAL IVP PRN (23:34)
--- NOTE | 2017-06-28 23:51 | Internal Med History&Physical ---
Date of Encounter: 06/28/17 Time of Encounter: 23:00 Internal Medicine - H&P: HPI Chief complaint: Syncope Admitted From: Home Plans for Post Hospital Care: Home History of present illness: Mr. Pond is a 87 year old male presented to ER for syncope and chest pain. Past medical history is significant for aortic stenosis, borderline diabetes, hypertension. Patient said today about 6 PM when he walked the on walker, he suddenly feel dizzy and then loss of consciousness. When he waked up, he found he is on the ground and facing grass. Patient stand up by himself and walked back to home. He ate dinner at home and feels mild right-sided chest and neck sore. Patient denies shortness of breath, nausea, diaphoresis, or fever. In the emergency room, CT head and neck unremarkable. he was found A. fib, which is new to him. Patient also was found elevated troponin to 0.18. Cardiology was counseled by ER physician, consider NSTEMI and heparin drip has been started. Past Med Surg Social Fam HX - Past Medical History Medical history: glaucoma, hypertension, RA, other Psychiatric history: no psych history - Past Surgical History Surgical History: appendectomy, cholecystectomy - Social History Smoking Status: Former smoker Smokeless Tobacco Status: No Alcohol use: occasionally Drug use: none - Family History Mother Living Status: Father Living Status: Internal Medicine - H&P: Meds Lisinopril-HCTZ 20-12.5 [Prinzide 20-12.5] 1 tab PO DAILY 12/11/15 [History] Omeprazole [PriLOSEC] 20 mg PO DAILY 12/11/15 [History] Furosemide [Lasix] 40 mg PO DAILY 08/09/16 [History] Albuterol Sulfate [Albuterol Inhaler] 2 puff IH Q4HR PRN #1 hfa.aer.ad 08/11/16 [Rx] Montelukast [Singulair] 10 mg PO HS #30 tablet 08/11/16 [Rx] Magnesium Oxide [Magnesium] 400 mg PO TID 06/28/17 [History] 3 Allergy/AdvReac Type Severity Reaction Status Date / Time Iodinated Contrast- Oral and Allergy Swelling Verified 08/08/16 23:07 IV Dye of Lip/Tongue/Throat All Systems PM: A 10-system review of systems was performed and is negative for pertinent findings except as documented above in the HPI. - Constitutional Vitals: Temp Pulse Resp BP Pulse Ox 97.9 F 86 18 146/77 97 06/28/17 20:31 06/28/17 21:08 06/28/17 23:27 06/28/17 23:27 06/28/17 21:08 General appearance: Present: A&O X 3, no acute distress, answers questions appropriately - Head Head exam: Present: normocephalic. Absent: atraumatic (Small laceration on right forehead) - Eye Eye exam: Present: PERRL, conjuntiva pink, sclera anicteric Pupils: Present: PERRL - Neck Neck exam general surgery: Present: supple, trachea midline. Absent: lymphadenopathy - Respiratory Respiratory exam: Present: CTAB. Absent: accessory muscle use, rales, rhonchi, wheezes - Cardiovascular Cardiovascular exam: Present: irregular rhythm, +S1, +S2, systolic murmur (III/ systolic murmur). Absent: diastolic murmur, gallop, rubs - GI/Abdominal GI/Abdominal exam: Present: normal bowel sounds, soft, no peritoneal signs. Absent: distended, tenderness - Extremities Exam Extremities exam: Present: warm, radial pulses palpable and symmetrical. Absent : calf tenderness, cyanotic, pedal edema - Neurological Exam Neurological exam: Present: CN II-XII intact, oriented X3, no focal deficits. Absent: pronater drift, facial droop, speech deficit - Skin Skin exam: Present: dry, intact Internal Med - H&P Results - Labs CBC & Chem 7: 06/28/17 20:35 06/28/17 20:35 - EKG Data -: EKG Interpreted by Myself (A. fib with normal heart rate) - Assessment and plan (1) History of aortic stenosis Current Visit: Yes Status: Acute Assessment and plan: Patient has history of severe aortic stenosis. Will repeat echo to see the disease progression. Avoid hypotension and tachycardia. (2) NSTEMI (non-ST elevated myocardial infarction) Current Visit: Yes Status: Acute Assessment and plan: Patient has a typical chest pain, most likely due to fall. However, he has elevated troponin, also need to consider NSTEMI. - Continue cardiac monitoring - Track 3 sets of troponin to see the trend - Cardiology already counseled by ER, recommend heparin drip, which is started already - Echocardiogram (3) Syncope Current Visit: Yes Status: Acute Assessment and plan: Patient denies history of syncope. He has severe aortic stenosis. Possibly due to aortic stenosis. - CT head has been done, unremarkable. - Echocardiogram - Patient has a recent duplex carotid, result is unremarkable. - Continuous cardiac monitoring - Consult cardiology Qualifiers: Syncope type: unspecified Qualified Code(s): R55 - Syncope and collapse (4) DVT prophylaxis Current Visit: No Status: Acute Assessment and plan: Patient is on heparin drip (5) HTN (hypertension) Current Visit: No Status: Chronic Assessment and plan: Continue home medications Qualifiers: Hypertension type: essential hypertension Qualified Code(s): I10 - Essential (primary) hypertension (6) A-fib Current Visit: Yes Status: Acute Assessment and plan: Patient has no history of A. fib. Onset time is unclear. 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 Continue closely follow-up renal function. Qualifiers: Chronic kidney disease stage: stage 3 (moderate) Qualified Code(s): N18.3 - Chronic kidney disease, stage 3 (moderate) - Time Spent With Patient Total time spent is greater than 50% in coordination of care (as documented) at patient's floor/unit and/or counseling patient: 40 minutes Greater than 35 minutes
[2017-06-29] MEDS: Acetaminophen 325 MG TABLET PO PRN ×2 (00:51→20:33)
[2017-06-29 04:36] LABS: Basophils % 0.5 %; Eosinophils # 0.2 K/mcL (0.0-0.6); Eosinophils % 2.8 %; Hematocrit 37.9 % (37.5-50.1); Immature Granulocytes % 0.5 % (0-4); Lymphocytes # 1.8 K/mcL (0.6-4.6); Lymphocytes % 28.9 %; Mean Corpuscular HGB Conc 35.9 g/dL (31.6-35.5); Mean Corpuscular Hemoglobin 35.9 pg (28.0-33.3); Mean Platelet Volume 11.1 fL (9.4-12.4); Monocytes # 0.7 K/mcL (0.0-1.3); Monocytes % 11.2 %; Neutrophils # 3.6 K/mcL (1.6-8.9); Platelet Count 144 K/mcL (140-400); Red Blood Count 3.79 M/mcL (4.19-5.50); Red Cell Distribution Width 12.9 % (11.5-14.5); Segmented Neutrophils % 56.1 %
[2017-06-29 04:49] LABS: Hemoglobin 13.6 g/dL (12.9-16.9)
[2017-06-29 04:53] LABS: BUN/Creatinine Ratio 21 (6-26); Blood Urea Nitrogen 26 mg/dL (8-23); Calcium 9.1 mg/dL (8.6-10.3); Carbon Dioxide 27 mEq/L (23-29); Chloride 104 mEq/L (98-107); Chol/HDL Ratio 3.4 (0-4.9); Cholesterol 139 mg/dL (< 200); Glucose 126 mg/dL (70-105); HDL Cholesterol 41 mg/dL (40-59); LDL Cholesterol,Calculated 88 mg/dL (0-99); Osmolality,Calculated 292 (280-300); Potassium 3.6 mEq/L (3.5-5.1); Sodium 138 mEq/L (136-145); Triglycerides 51 mg/dL (< 150); eGFR For African Americans > 60 (> 60); eGFR For Non-African Americans 57 (> 60)
--- NOTE | 2017-06-29 08:22 | Internal Med Progress Note ---
<Carter Anderson - Last Filed: 06/29/17 15:07> Date of Encounter: 06/29/17 Time of Encounter: 10:00 - Assessment and plan (1) Syncope Current Visit: Yes Status: Acute Assessment and plan: Patient denies history of syncope. Syncope episode likely secondary to severe symptomatic aortic stenosis. - CT head is unremarkable. - CT cervical spine demonstrates no acute abnormality. - Cardiology on board. - Prior TTE with borderline severe . repeat echocardiogram results pending. possible LHC if significant . - Patient has a recent duplex carotid, result is unremarkable. - Continuous cardiac monitoring - Continue heparin drip. D/c with terminal make up operator anticoagulation prior to d/c Qualifiers: Syncope type: unspecified Qualified Code(s): R55 - Syncope and collapse (2) Elevated troponin Current Visit: No Status: Acute Assessment and plan: 0.18/0.21/0.19 TTE pending. No acute ischemic EKG changes. Possible NSTEMI Continue heparin Drip, ASA, BB (3) A-fib Current Visit: Yes Status: Acute Assessment and plan: Patient has no history of A. fib. Onset time is unclear. - Continue heparin drip, BB, ASA, Mg - Heart rate well controlled - Plan per above Qualifiers: Atrial fibrillation type: unspecified Qualified Code(s): I48.91 - Unspecified atrial fibrillation (4) HTN (hypertension) Current Visit: No Status: Chronic Assessment and plan: Continue home medications Qualifiers: Hypertension type: essential hypertension Qualified Code(s): I10 - Essential (primary) hypertension (5) History of aortic stenosis Current Visit: No Status: Acute Assessment and plan: Patient has history of severe aortic stenosis. Pending repeat LOBO. Avoid hypotension and tachycardia. (6) Diabetes Current Visit: No Status: Acute Assessment and plan: Continue diet control Qualifiers: Diabetes mellitus type: type 2 Diabetes mellitus terminal make up operator insulin use: without terminal make up operator use Diabetes mellitus complication status: without complication Qualified Code(s): E11.9 - Type 2 diabetes mellitus without complications (7) CKD (chronic kidney disease) Current Visit: No Status: Acute Assessment and plan: Creatinine is at his baseline. Continue closely follow-up renal function. Qualifiers: Chronic kidney disease stage: stage 3 (moderate) Qualified Code(s): N18.3 - Chronic kidney disease, stage 3 (moderate) (8) DVT prophylaxis Current Visit: No Status: Acute Assessment and plan: Patient currently on Heparin Drip. (9) Aortic stenosis Current Visit: No Status: Chronic Qualifiers: Cardiac valve disease etiology: etiology unspecified Qualified Code(s): I35.0 - Nonrheumatic aortic (valve) stenosis - Time Spent With Patient Total time spent is greater than 50% in coordination of care (as documented) at patient's floor/unit and/or counseling patient: Greater than 35 minutes - Subjective Interval history: Patient had episode of syncope when he was mowing lawn. Has not had similar episodes before. Follows with Dr. Feliz, with known valvular issue. Did lose consciousness, but denies trauma to head, denies loss of memory. Currently, denies chest pain, SOB, headaches, vision changes. Denies palpitation. No PO intake today due to pending LOBO. No other acute complaints. - Constitutional Vitals: Temp Pulse Resp BP Pulse Ox 98.6 F 75 17 138/68 95 06/29/17 07:29 06/29/17 07:29 06/29/17 07:29 06/29/17 07:29 06/29/17 07:29 General appearance: Present: A&O X 3, no acute distress, answers questions appropriately - Head Head exam: Present: atraumatic, normocephalic - Eye Eye exam: Present: EOMI, conjuntiva pink, sclera anicteric - Neck Neck exam general surgery: Present: supple, trachea midline. Absent: lymphadenopathy - Respiratory Respiratory exam: Present: CTAB. Absent: accessory muscle use, rales, rhonchi, wheezes - Cardiovascular Cardiovascular exam: Present: irregular rhythm, systolic murmur. Absent: diastolic murmur, gallop, rubs Additional comments: Thrill noted. - GI/Abdominal GI/Abdominal exam: Present: normal bowel sounds, soft, no peritoneal signs. Absent: distended, tenderness - Extremities Exam Extremities exam: Present: pedal edema, warm, radial pulses palpable and symmetrical. Absent: calf tenderness, cyanotic - Neurological Exam Neurological exam: Present: CN II-XII intact, oriented X3, no focal deficits. Absent: pronater drift, facial droop, speech deficit - Skin Skin exam: Present: dry, intact Internal Medicine: Result - Labs CBC & Chem 7: 06/29/17 04:00 06/29/17 04:00 Labs: Short CBC 06/29/17 Range/Units 04:00 WBC 6.4 (4.3-11.1) K/mcL Hgb 13.6 D (12.9-16.9) g/dL Hct 37.9 (37.5-50.1) % Plt Count 144 (140-400) K/mcL Neutrophils # 3.6 (1.6-8.9) K/mcL BMP 06/29/17 04:00 Sodium 138 Potassium 3.6 Chloride 104 Carbon Dioxide 27 BUN 26 H Creatinine 1.21 Glucose 126 H Calcium 9.1 Cardiac Enzymes 06/29/17 06/29/17 Range/Units 00:06 06:25 Troponin I 0.21 H* 0.19 H* (< 0.04) ng/mL - ABG Interpretation ABG results: PT/INR, D-dimer PT 12.4 Seconds (9.4-12.1) H 06/28/17 20:35 - VTE Documentation of Mechanical Device: Intermittent pneumatic compression device Consult Discharge Plan - [facility] - <Romero Masterson - Last Filed: 06/29/17 15:57> Date of Encounter: 06/29/17 - Assessment and plan (1) Elevated troponin Current Visit: No Status: Acute (2) DVT prophylaxis Current Visit: No Status: Acute (3) HTN (hypertension) Current Visit: No Status: Chronic Qualifiers: Hypertension type: essential hypertension Qualified Code(s): I10 - Essential (primary) hypertension (4) Syncope Current Visit: Yes Status: Acute Qualifiers: Syncope type: unspecified Qualified Code(s): R55 - Syncope and collapse (5) History of aortic stenosis Current Visit: No Status: Acute (6) A-fib Current Visit: Yes Status: Acute Qualifiers: Atrial fibrillation type: unspecified Qualified Code(s): I48.91 - Unspecified atrial fibrillation (7) Diabetes Current Visit: No Status: Acute Qualifiers: Diabetes mellitus type: type 2 Diabetes mellitus terminal make up operator insulin use: without terminal make up operator use Diabetes mellitus complication status: without complication Qualified Code(s): E11.9 - Type 2 diabetes mellitus without complications (8) CKD (chronic kidney disease) Current Visit: No Status: Acute Qualifiers: Chronic kidney disease stage: stage 3 (moderate) Qualified Code(s): N18.3 - Chronic kidney disease, stage 3 (moderate) (9) Aortic stenosis Current Visit: No Status: Chronic Qualifiers: Cardiac valve disease etiology: etiology unspecified Qualified Code(s): I35.0 - Nonrheumatic aortic (valve) stenosis - Time Spent With Patient Total time spent is greater than 50% in coordination of care (as documented) at patient's floor/unit and/or counseling patient: - Constitutional Vitals: Temp Pulse Resp BP Pulse Ox 98.6 F 102 17 138/68 95 06/29/17 07:29 06/29/17 12:15 06/29/17 07:29 06/29/17 07:29 06/29/17 07:29 Internal Medicine: Result - Labs CBC & Chem 7: 06/29/17 04:00 06/29/17 04:00 Labs: Short CBC 06/29/17 Range/Units 04:00 WBC 6.4 (4.3-11.1) K/mcL Hgb 13.6 D (12.9-16.9) g/dL Hct 37.9 (37.5-50.1) % Plt Count 144 (140-400) K/mcL Neutrophils # 3.6 (1.6-8.9) K/mcL BMP 06/29/17 04:00 Sodium 138 Potassium 3.6 Chloride 104 Carbon Dioxide 27 BUN 26 H Creatinine 1.21 Glucose 126 H Calcium 9.1 Cardiac Enzymes 06/29/17 06/29/17 Range/Units 00:06 06:25 Troponin I 0.21 H* 0.19 H* (< 0.04) ng/mL - ABG Interpretation ABG results: PT/INR, D-dimer PT 12.4 Seconds (9.4-12.1) H 06/28/17 20:35 - Attending Attestation I saw and examined this patient 06/29, and my medical decision-making was reviewed with the Resident Physician. I agree with the documented findings, disposition and treatment plan as described except to the extent set forth below. 87 M with CKD III, CHFrEF admitted and being managed for syncope, mew onset Afib , suspected NSTEMI. Still having R neck pain, no chest pain. VSS, exam unremarkable, except for alod murmur. Follow ECHO, continue heparin, cardio eval, will need to discuss oral terminal make up operator anticoagulation for CHADS score of 4. Rest as in the resident physician's documentation
[2017-06-29] MEDS: Lisinopril-HCTZ 20-12.5mg TABLET PO SCH (10:51)
[2017-06-29] MEDS: Magnesium Oxide 400 MG TABLET PO SCH ×3 (10:51→20:33)
[2017-06-29] MEDS: Furosemide 40 MG TABLET PO SCH (10:51)
--- NOTE | 2017-06-29 11:58 | Cardiology Consult Note ---
Date of Encounter: 06/29/17 Time of Encounter: 09:30 Assessment and Plan (1) Syncope Current Visit: Yes Status: Acute Per cardiology: -Admitted after syncopal episode. -Known moderate-severe . Qualifiers: Syncope type: unspecified Qualified Code(s): R55 - Syncope and collapse (2) Aortic stenosis Current Visit: Yes Status: Chronic Per cardiology: -Known mod-severe per TTE 04/2016 with mean gradiant 37mmHg, peak velocity 3.73m/s, VÍCTOR 0.9cm2. -Current TTE pending. -Systolic murmur noted. -Pending repeat TTE, will need ischemic evaluation with [facility]. Will amke NPO after midnight, will need pre-treated for IVP dye allergy, had lip/facial swelling with previosu IVP dye. -Patient agreeable for further interventions for AV. -Will continue to [facility]. Qualifiers: Cardiac valve disease etiology: etiology unspecified Qualified Code(s): I35.0 - Nonrheumatic aortic (valve) stenosis (3) Elevated troponin Current Visit: No Status: Acute Per cardiology: -Troponins 0.18, 0.21, 0.19. -had right sided chest pain after mowing grass that radiated into neck. -Denies current chest pain. -TTE pending. -On heparin drip. -No acute ischemic ECG changes. -Naima start asa, beta gino. -Further recommendations pending TTE. (4) A-fib Current Visit: Yes Status: Acute Per cardiology: -A.fib noted on admission. -HR controlled. -Denies previous diagnosis of a.fib -Bnqos7retl score 4 (age, HTN, vascular disease). Currently on heparin drip -Will start beta gino -Continue heparin drip for now. -Will discuss prison antticoagulation pending TTE, clinical course. Qualifiers: Atrial fibrillation type: unspecified Qualified Code(s): I48.91 - Unspecified atrial fibrillation Discussion w patient/family: The assessment and plan as outlined above was discussed with the patient and/or family members who expressed understanding and agreement. All questions were answered. Thank you for involving us in the care of your patient. Please call with any questions. Discussed and reviewed with . History of Present Illness Consult date: 06/28/17 Requesting physician: Moses Jenkins Consult reason: syncope, Chief complaint: syncope History of present illness: Mr. Pond is a 87 year old male with a relevant past medical history of aortic stenosis, cancer of vocal cords, HTN, right carotid fistula with embolization, GERD. Patient presented to [facility] after syncopal event at home. Patient states he was mowing grass when he felt dizzy and the next thing he knew , he was face down on the ground. Patient reports when he came too, he finished mowing grass and then went inside to sit down. Patient reports he was sitting at the kitchen table, when he had right sided chest pain that radiated into neck. Patient also reports increased shortness of breath over the past couple of months. Reports chronic lower extremity edema. Past Med Surg Social Fam HX - Past Medical History Attestation: Yes The following information was validated with the patient. Source: patient, old records reviewed, obtained from family Medical history: diabetes, glaucoma, hypertension, RA, valvular heart disease Psychiatric history: no psych history - Past Surgical History Surgical History: appendectomy, cholecystectomy - Social History Smoking Status: Former smoker Smokeless Tobacco Status: No Alcohol use: none Drug use: none - Family History Mother Living Status: Father Living Status: Medications and Allergies Lisinopril-HCTZ 20-12.5 [Prinzide 20-12.5] 1 tab PO DAILY 12/11/15 [History] Omeprazole [PriLOSEC] 20 mg PO DAILY 12/11/15 [History] Furosemide [Lasix] 40 mg PO DAILY 08/09/16 [History] Albuterol Sulfate [Albuterol Inhaler] 2 puff IH Q4HR PRN #1 hfa.aer.ad 08/11/16 [Rx] Montelukast [Singulair] 10 mg PO HS #30 tablet 08/11/16 [Rx] Magnesium Oxide [Magnesium] 400 mg PO TID 06/28/17 [History] 3 Allergy/AdvReac Type Severity Reaction Status Date / Time Iodinated Contrast- Oral and Allergy Swelling Verified 08/08/16 23:07 IV Dye of Lip/Tongue/Throat All Systems Review: The remainder of the systems were reviewed and are negative - Cardiovascular Cardiovascular: as per HPI, chest pain with exertion, dyspnea on exertion, leg edema - Neurological Neurological: syncope Physical Examination Vital Signs Temperature 97.9 F 06/28/17 20:31 Pulse Rate 86 06/28/17 20:31 Respiratory Rate 20 06/28/17 20:31 Blood Pressure 121/88 06/28/17 20:31 O2 Sat by Pulse Oximetry 98 06/28/17 20:31 Temperature 98.6 F 06/29/17 07:29 Pulse Rate 75 06/29/17 07:29 Respiratory Rate 17 06/29/17 07:29 Blood Pressure 138/68 06/29/17 07:29 O2 Sat by Pulse Oximetry 95 06/29/17 07:29 Oxygen Delivery Oxygen Delivery Room Air General: Conversant, No Apparent Distress HEENT: Atraumatic, Normocephaly, Mucus Membranes Moist Neck: No JVD, Normal carotid pulses Cardiac: Normal S1 and S2, Other (Systolic murmur noted. Irregularly irregular ) Lungs: Normal Breath Sounds, No Wheeze, Rales, Rhonchi Neuro: Alert and responsive, No focal deficits noted Abdomen: Soft, Non-Tender Skin: No rashes noted on visualized skin Musculoskeletal: No Chest Wall Tenderness Extremities: No Clubbing, No Cyanosis, Normal Pulses, Other (Mild bilateral pedal edema noted. ) Results 06/29/17 04:00 06/29/17 04:00 Lab Results Impressions Cervical Spine CT 06/28/17 20:37 IMPRESSION: No acute intracranial abnormality. No acute abnormality of the cervical spine. D/ / Isabella Jeong Cha, MD / Isabella Jeong Cha, MD Interpreting Provider: Isabella Jeong Cha, MD Chest X-Ray 06/28/17 20:37 IMPRESSION: 1. Mild opacity at the left lung base which are favored to reflect atelectasis. Focal infiltrate cannot entirely be excluded in the appropriate clinical setting. D/ / Oniel Jimenez MD / Oniel Jimenez MD Interpreting Provider: Oniel Jimenez MD Head CT 06/28/17 20:37 IMPRESSION: No acute intracranial abnormality. No acute abnormality of the cervical spine. D/ / Isabella Jeong Cha, MD / Isabella Jeong Cha, MD Interpreting Provider: Isabella Jeong Cha, MD Active Medications Acetaminophen (Tylenol) 650 mg PO Q6HR PRN PRN Reason: Mild Pain/Fever Stop: 12/28/17 23:35 Last Admin: 06/29/17 00:51 Dose: 325 mg Albuterol Sulfate (Albuterol Inhaler) 2 puff IH Q4H PRN PRN Reason: Shortness Of Breath Stop: 12/28/17 23:41 Furosemide (Lasix) 40 mg PO DAILY JORGE Stop: 12/29/17 09:01 Last Admin: 06/29/17 10:51 Dose: 40 mg Lisinopril/HCTZ (Prinzide 20-12.5) 1 each PO DAILY JORGE Stop: 12/29/17 09:01 Last Admin: 06/29/17 10:51 Dose: 1 each Heparin Sodium (Porcine) (Heparin) 4,000 unit IVP Q6HR PRN PRN Reason: SEE COMMENTS Stop: 12/28/17 21:40 Heparin Sodium (Porcine) (Heparin) 2,000 unit IVP Q6H PRN PRN Reason: SEE COMMENTS Stop: 12/28/17 21:40 Heparin Sodium/Dextrose (Heparin 25,000 Unit/500 Ml D5w) 25,000 unit in 500 mls @ 19.958 mls/hr IVC .Q24H JORGE; 8 UNIT/KG/HR PRN Reason: Protocol Stop: 12/28/17 21:46 Last Titration: 06/29/17 10:56 Dose: 7.99 unit/kg/hr, 19.958 mls/hr Ketorolac Tromethamine (Toradol) 15 mg IVP Q6HR PRN PRN Reason: mild to moderate pain Stop: 07/03/17 23:35 Magnesium Oxide (Mag-Ox) 400 mg PO TID JORGE Stop: 12/29/17 09:01 Last Admin: 06/29/17 10:51 Dose: 400 mg Montelukast Sodium (Singulair) 10 mg PO HS JORGE Stop: 12/29/17 21:01 Naloxone HCl (Narcan) 0.4 mg IVP Q2MIN PRN PRN Reason: SEE COMMENTS Stop: 12/28/17 23:35 Omeprazole (Prilosec) 20 mg PO DAILY JORGE PRN Reason: Protocol Stop: 12/29/17 09:01 Last Admin: 06/29/17 10:51 Dose: 20 mg Laboratory Tests 08/11/16 06/28/17 06/28/17 05:22 20:35 20:35 Hgb 15.4 Potassium Creatinine 1.52 H 1.58 H Troponin I 0.18 H* TSH 06/29/17 06/29/17 06/29/17 00:06 04:00 04:00 Hgb 13.6 D Potassium 3.6 Creatinine 1.21 Troponin I 0.21 H* TSH 06/29/17 06/29/17 04:00 06:25 Hgb Potassium Creatinine Troponin I 0.19 H* TSH 2.403 - Imaging and Cardiology Chest Xray: report reviewed Stress Test: pending Echo: report reviewed - EKG Interpretation EKG results cardiology: personally reviewed (ECG with a.fib, HR 96.), other ( Telemetry reviewed with average HR peviosu 12 hours noted to be 71, a.fib, PVCs noted.) Consult Discharge Plan - Plan Referrals: [place],Pranav Friedman MD [Primary Care Provider] -
[2017-06-29] MEDS: Aspirin Enteric Coated 81 MG Tablet PO SCH (12:58)
[2017-06-29] MEDS: Metoprolol XL (24 HR) Succ 25 MG TAB.ER.24H PO SCH (12:58)
[2017-06-29] MEDS ORDERED: Perflutren Lipid Microsphere 1.3 ML in 0.9 % Sodium Chloride 8.7 ML IVP ONE (15:41)
--- NOTE | 2017-06-29 16:18 | Electrocardiograph Report ---
[address] [place], [place] [address] Test Date: 2017-06-28 Pat Name: Wood Pond Department: 102 Room: 2NE19 Gender: M Campus Receptionist: Zully : 1930 Requested By: Moses Jenkins Order Number: [id number] Reading MD: Pranav Mcgee Measurements Intervals [place] Rate: 96 P: DE: 0 QRS: -60 QRSD: 124 T: 109 QT: 369 QTc: 423 Interpretive Statements ATRIAL FIBRILLATION MARKED LEFT AXIS DEVIATION POSSIBLE LEFT VENTRICULAR HYPERTROPHY POSSIBLE ANTEROSEPTAL MYOCARDIAL INFARCTION, OF INDETERMINATE AGE MODERATE T-WAVE ABNORMALITY, CONSIDER LATERAL ISCHEMIA Electronically Signed On 06-29-2017 16:16:58 EDT by Pranav Mcgee
[2017-06-29] MEDS ORDERED: predniSONE 20 MG TABLET PO ONE (21:00)
[2017-06-30] MEDS: Heparin 25,000 UNIT/500 ML D5W 25,000 UNIT/500 ML BAG IVC SCH ×2 (01:39→21:28)
[2017-06-30 04:29] LABS: Basophils % 0.3 %; Eosinophils % 0.3 %; Hematocrit 41.4 % (37.5-50.1); Hemoglobin 14.7 g/dL (12.9-16.9); Immature Granulocytes % 0.6 % (0-4); Lymphocytes # 0.9 K/mcL (0.6-4.6); Lymphocytes % 11.8 %; Mean Corpuscular HGB Conc 35.5 g/dL (31.6-35.5); Mean Corpuscular Hemoglobin 35.9 pg (28.0-33.3); Mean Platelet Volume 11.2 fL (9.4-12.4); Monocytes # 0.1 K/mcL (0.0-1.3); Monocytes % 1.3 %; Neutrophils # 6.7 K/mcL (1.6-8.9); Platelet Count 158 K/mcL (140-400); Segmented Neutrophils % 85.7 %
[2017-06-30 04:54] LABS: BUN/Creatinine Ratio 19 (6-26); Blood Urea Nitrogen 24 mg/dL (8-23); Calcium 9.4 mg/dL (8.6-10.3); Carbon Dioxide 28 mEq/L (23-29); Chloride 101 mEq/L (98-107); Glucose 210 mg/dL (70-105); Osmolality,Calculated 294 (280-300); Potassium 4.4 mEq/L (3.5-5.1); Sodium 137 mEq/L (136-145); eGFR For African Americans > 60 (> 60); eGFR For Non-African Americans 53 (> 60)
[2017-06-30] MEDS ORDERED: predniSONE 20 MG TABLET PO ONE (08:13)
[2017-06-30] MEDS: Furosemide 40 MG TABLET PO SCH (08:24)
[2017-06-30] MEDS: Metoprolol XL (24 HR) Succ 25 MG TAB.ER.24H PO SCH (08:24)
[2017-06-30] MEDS: Magnesium Oxide 400 MG TABLET PO SCH ×3 (08:24→21:27)
[2017-06-30] MEDS: Lisinopril-HCTZ 20-12.5mg TABLET PO SCH (08:24)
--- NOTE | 2017-06-30 08:24 | Pre-Sedation Evaluation ---
Pre-sedation evaluation - Pre-sedation checklist Date of procedure: 06/30/17 Procedure: [facility] Recent Vitals: Last Vital Signs Temp 98.2 F 06/30/17 07:12 Pulse 73 06/30/17 07:12 Resp 16 06/30/17 07:12 BP 138/81 06/30/17 07:12 Pulse Ox 98 06/30/17 07:12 H&P (including ROS) documented in medical record: Yes Previous reaction to sedatives/anesthetics: No Dietary Status: NPO after Midnight Dentition: No loose teeth or bridges ASA Classification *see protocol: CLASS II-Mild systemic disease Plan of Care: Pt appropriate candidate for procedure/moderate/conscious sedation , Risks/benefits of procedure/sedation discussed w/ patient/family
[2017-06-30] MEDS: Aspirin Enteric Coated 81 MG Tablet PO SCH (08:25)
--- NOTE | 2017-06-30 10:05 | Event Note ---
Date of Encounter: 06/30/17 Time of Encounter: 08:00 - Cardiology Event Note Plan for C today. Risks versus benefits of LHC expalined to patient and family. Patient states understanding and agreeable to proceed. Patient reports IVP dye allergy, was given prednisone 60mg last night, will given another 60mg prednisone this am. Disucssed and reviewed with , who states he will give IV benadryl in research laboratory manager. Further recommendations pending [facility].
--- NOTE | 2017-06-30 10:44 | Internal Med Progress Note ---
<Jovany Giordano - Last Filed: 06/30/17 11:46> Date of Encounter: 06/30/17 Time of Encounter: 10:44 - Assessment and plan (1) Syncope Current Visit: Yes Status: Acute Assessment and plan: Patient denies history of syncope. Syncope episode likely secondary to severe symptomatic aortic stenosis. CT head is unremarkable. CT cervical spine demonstrates no acute abnormality. Cardiology on board. Suspects syncope secondary to significant valve disease. Patient has a recent duplex carotid, result is unremarkable. Continuous cardiac monitoring Qualifiers: Syncope type: unspecified Qualified Code(s): R55 - Syncope and collapse (2) Diastolic heart failure Current Visit: Yes Status: Chronic Assessment and plan: Due to underlying severe Aortic stenosis Repeat echo revealed LVEF 55-60%. Indeterminate diastolic function. Mild to moderate concentric left ventricular hypertrophy. Normal right ventricular structure and function. Severe aortic stenosis. Mild mitral regurgitation. Mild tricuspid regurgitation. Borderline pulmonary hypertension by TR gradient, 32 mmHg. Continue current management Qualifiers: Heart failure chronicity: acute on chronic Qualified Code(s): I50.33 - Acute on chronic diastolic (congestive) heart failure (3) Elevated troponin Current Visit: No Status: Acute Assessment and plan: Serial troponins 0.18/0.21/0.19 No acute ischemic EKG changes. Possible NSTEMI Continue heparin Drip, ASA, BB Patient reports IVP dye allergy, was given prednisone 60mg last night, will given another 60mg prednisone this am. Cardiology will give IV benadryl in cath lab technologist today. (4) A-fib Current Visit: Yes Status: Acute Assessment and plan: New onset. Patient has no history of A. fib. Continue heparin drip, BB, ASA, Mg Heart rate well controlled Will need to discuss oral middle or intermediate [employer] principal anticoagulation for CHADS score of 4. Qualifiers: Atrial fibrillation type: unspecified Qualified Code(s): I48.91 - Unspecified atrial fibrillation (5) HTN (hypertension) Current Visit: No Status: Chronic Assessment and plan: Continue home medications Qualifiers: Hypertension type: essential hypertension Qualified Code(s): I10 - Essential (primary) hypertension (6) Diabetes Current Visit: No Status: Acute Assessment and plan: Continue diet control Qualifiers: Diabetes mellitus type: type 2 Diabetes mellitus fdc insulin use: without fdc use Diabetes mellitus complication status: without complication Qualified Code(s): E11.9 - Type 2 diabetes mellitus without complications (7) CKD (chronic kidney disease) Current Visit: No Status: Acute Assessment and plan: Creatinine is at his baseline. Continue closely follow-up renal function. Qualifiers: Chronic kidney disease stage: stage 3 (moderate) Qualified Code(s): N18.3 - Chronic kidney disease, stage 3 (moderate) (8) DVT prophylaxis Current Visit: No Status: Acute Assessment and plan: Patient currently on Heparin Drip. Will need to discuss oral fdc anticoagulation for CHADS score of 4. (9) Aortic stenosis Current Visit: Yes Status: Chronic Assessment and plan: Patient has history of severe aortic stenosis. Repeat LOBO demonstrates severe aortic stenosis. Suspect syncope secondary to significant valve disease. Given patient's advanced age, cardioloy recommends TAVR evaluation. Continue to optimize medical therapy and make further recommendations following LHC. Qualifiers: Cardiac valve disease etiology: etiology unspecified Qualified Code(s): I35.0 - Nonrheumatic aortic (valve) stenosis - Time Spent With Patient Total time spent is greater than 50% in coordination of care (as documented) at patient's floor/unit and/or counseling patient: - Subjective Interval history: Patient seen and examined resting comfortably in bed. Patient reports mild right sided chest discomfort that he attributes to recent fall. Patient is scheduled for C this afternoon. Patient denies any new c/o. - Constitutional Vitals: Temp Pulse Resp BP Pulse Ox 98.2 F 73 16 138/81 98 06/30/17 07:12 06/30/17 07:12 06/30/17 07:12 06/30/17 07:12 06/30/17 07:12 General appearance: Present: cooperative, A&O X 3, pleasant, no acute distress, answers questions appropriately Exam: elderly - Head Head exam: Present: atraumatic, normocephalic - Eye Eye exam: Present: PERRL, conjuntiva pink, sclera anicteric Pupils: Present: PERRL - ENT ENT exam: Present: mucous membranes dry, normal oropharynx - Neck Neck exam general surgery: Present: supple, trachea midline. Absent: lymphadenopathy - Respiratory Respiratory exam: Present: CTAB. Absent: accessory muscle use, rales, rhonchi, wheezes - Cardiovascular Cardiovascular exam: Present: RRR, +S1, +S2. Absent: diastolic murmur, gallop, rubs, systolic murmur - GI/Abdominal GI/Abdominal exam: Present: normal bowel sounds, soft, no peritoneal signs. Absent: distended, tenderness - Extremities Exam Extremities exam: Present: warm, radial pulses palpable and symmetrical. Absent : calf tenderness, cyanotic, pedal edema - Back Exam Back exam: Present: normal inspection. Absent: tenderness - Neurological Exam Neurological exam: Present: CN II-XII intact, oriented X3, no focal deficits. Absent: pronater drift, facial droop, speech deficit - Psychiatric Psychiatric exam: Present: normal affect, normal mood - Skin Skin exam: Present: dry, intact, normal color, warm Internal Medicine: Result - Labs CBC & Chem 7: 06/30/17 03:46 06/30/17 03:46 Labs: Short CBC 06/30/17 Range/Units 03:46 WBC 7.8 (4.3-11.1) K/mcL Hgb 14.7 (12.9-16.9) g/dL Hct 41.4 (37.5-50.1) % Plt Count 158 (140-400) K/mcL Neutrophils # 6.7 (1.6-8.9) K/mcL BMP 06/30/17 03:46 Sodium 137 Potassium 4.4 Chloride 101 Carbon Dioxide 28 BUN 24 H Creatinine 1.28 Glucose 210 H Calcium 9.4 - ABG Interpretation ABG results: PT/INR, D-dimer PT 12.4 Seconds (9.4-12.1) H 06/28/17 20:35 - Pulse Oximetry Interpretation Digit-Finger Pulse Oximetry Readin (On RA) - VTE Documentation of Mechanical Device: Intermittent pneumatic compression device Consult Discharge Plan - Plan Referrals: [facility] [place],Pranav Friedman MD [Primary Care Provider] - <Romero Masterson - Last Filed: 06/30/17 15:16> Date of Encounter: 06/30/17 - Assessment and plan (1) Elevated troponin Current Visit: No Status: Acute (2) DVT prophylaxis Current Visit: No Status: Acute (3) Diastolic heart failure Current Visit: Yes Status: Chronic Qualifiers: Heart failure chronicity: acute on chronic Qualified Code(s): I50.33 - Acute on chronic diastolic (congestive) heart failure (4) HTN (hypertension) Current Visit: No Status: Chronic Qualifiers: Hypertension type: essential hypertension Qualified Code(s): I10 - Essential (primary) hypertension (5) Syncope Current Visit: Yes Status: Acute Qualifiers: Syncope type: unspecified Qualified Code(s): R55 - Syncope and collapse (6) A-fib Current Visit: Yes Status: Acute Qualifiers: Atrial fibrillation type: unspecified Qualified Code(s): I48.91 - Unspecified atrial fibrillation (7) Diabetes Current Visit: No Status: Acute Qualifiers: Diabetes mellitus type: type 2 Diabetes mellitus middle or intermediate school principal insulin use: without middle or intermediate school principal use Diabetes mellitus complication status: without complication Qualified Code(s): E11.9 - Type 2 diabetes mellitus without complications (8) CKD (chronic kidney disease) Current Visit: No Status: Acute Qualifiers: Chronic kidney disease stage: stage 3 (moderate) Qualified Code(s): N18.3 - Chronic kidney disease, stage 3 (moderate) (9) Aortic stenosis Current Visit: Yes Status: Chronic Qualifiers: Cardiac valve disease etiology: etiology unspecified Qualified Code(s): I35.0 - Nonrheumatic aortic (valve) stenosis - Time Spent With Patient Total time spent is greater than 50% in coordination of care (as documented) at patient's floor/unit and/or counseling patient: - Constitutional Vitals: Temp Pulse Resp BP Pulse Ox 97.5 F L 73 16 156/91 97 06/30/17 11:42 06/30/17 11:42 06/30/17 11:42 06/30/17 11:42 06/30/17 11:42 Internal Medicine: Result - Labs CBC & Chem 7: 06/30/17 03:46 06/30/17 03:46 Labs: Short CBC 06/30/17 Range/Units 03:46 WBC 7.8 (4.3-11.1) K/mcL Hgb 14.7 (12.9-16.9) g/dL Hct 41.4 (37.5-50.1) % Plt Count 158 (140-400) K/mcL Neutrophils # 6.7 (1.6-8.9) K/mcL BMP 06/30/17 03:46 Sodium 137 Potassium 4.4 Chloride 101 Carbon Dioxide 28 BUN 24 H Creatinine 1.28 Glucose 210 H Calcium 9.4 - ABG Interpretation ABG results: PT/INR, D-dimer PT 12.4 Seconds (9.4-12.1) H 06/28/17 20:35 - Attending Attestation I saw and examined this patient 06/30, and my medical decision-making was reviewed with the Resident Physician. I agree with the documented findings, disposition and treatment plan as described except to the extent set forth below. 87 M with CKD III, CHFrEF admitted and being managed for syncope, mew onset Afib , suspected NSTEMI. Still having R neck pain, no chest pain. VSS, exam unremarkable, except for a loud murmur. ECHO noted for severe -(symptomatic), continue heparin, cardio recommends TAVR, for C today,continue current meds, on heparin drip, will need EVIN prior to discharge Rest as in the resident physician's documentation
[2017-06-30] MEDS ORDERED: ISOVUE-370 200 ML INFUS..BTL IV ONE (13:44)
[2017-06-30] MEDS ORDERED: 0.9 % Sodium Chloride 1,000 ML ONE ×2 (13:44→14:24)
[2017-06-30] MEDS ORDERED: Heparin 1,000 UNITS/500 mL 500 ML ONE (13:44)
[2017-06-30] MEDS ORDERED: *HR* Heparin 10,000 UNIT/10 ML VIAL ONE (13:44)
[2017-06-30] MEDS ORDERED: Verapamil 5 MG/2 ML VIAL ONE (14:24)
[2017-06-30] MEDS ORDERED: *HR* FentaNYL (PF) 100 MCG/2 ML VIAL ONE (14:24)
[2017-06-30] MEDS ORDERED: *HR* Midazolam HCl 2 MG/2 ML VIAL ONE (14:24)
[2017-06-30] MEDS ORDERED: Nitroglycerin 1,000 MCG/10 ML VIAL IV ONE (14:25)
[2017-06-30] MEDS ORDERED: methylPREDNISolone 125 MG/2 ML VIAL ONE (14:32)
[2017-06-30] MEDS ORDERED: Tirofiban 12.5 MG/250ML 12.5 MG/250 ML BAG ONE (15:05)
--- NOTE | 2017-06-30 15:37 | Pre-Sedation Evaluation ---
Pre-sedation evaluation - Pre-sedation checklist Date of procedure: 06/30/17 Procedure: [facility] Recent Vitals: Last Vital Signs Temp 97.5 F L 06/30/17 11:42 Pulse 73 06/30/17 11:42 Resp 16 06/30/17 11:42 BP 156/91 06/30/17 11:42 Pulse Ox 97 06/30/17 11:42 H&P (including ROS) documented in medical record: Yes Previous reaction to sedatives/anesthetics: No Dietary Status: NPO after Midnight Dentition: No loose teeth or bridges ASA Classification *see protocol: CLASS II-Mild systemic disease Plan of Care: Pt appropriate candidate for procedure/moderate/conscious sedation , Risks/benefits of procedure/sedation discussed w/ patient/family
[2017-06-30] MEDS ORDERED: Ondansetron 4 MG/2 ML VIAL IVP PRN (15:56)
[2017-06-30] MEDS ORDERED: Tirofiban 12.5 MG/250ML 12.5 MG/250 ML BAG IVC SCH (16:00)
--- NOTE | 2017-06-30 17:38 | Invasive Diagnostic Lab Proc ---
Name: [place] Date of Study: 06/30/2017 Date: 1930 Ht: 77.2in Medical Record#: [id number] Age: 87 Wt: 286.60lb Gender: Male BSA: 2.61 Order #: [id number] BMI: 33.84 Physicians Procedure Physician: Caden Huffman MD, FACC Referring MD: Referring MD: Staff Name Position Time In Brigette Rodriguez RT (R) Monitor 02:39 PM Becky Echols RN Mechanical Unit Repairer 02:39 PM Juma Hardin RT (R) Scrub 02:39 PM Indications Indication Non-Stemi Procedures Performed Procedure PRQ CARD CLARIBEL STENT W/ANGIO 1 VSL CORONARY ARTERY ANGIO S&I Pre-Procedure Checklist Informed consent is complete signed and on chart. H&P is on chart. ID band is on and ID verified with patient. Patient NPO for procedure The procedure was described for the patient and questions were answered. ECG is on chart. Plan of Care Patient will tolerate the procedure without complications. Adequate level of comfort will be maintained. Hemodynamics will remain stable Patient will recover from procedure without complications. Respiratory function will be maintained. Cardiac rhythm will remain stable. Patient temperature will be maintained. Patient and/or family have verbalized understanding of the procedure. Patient Education Chief Complaint/Reason for Test: Cardiac Cath Developmental Category: Geriatric (65+ years) Developmentally Appropriate for Age: Yes Learning Barriers: None Education Needs: Procedure Education Method: Verbal Information Taught: Cardiac Cath Educational Evaluation: Able to repeat information Allergies Iodinated Contrast Media - IV Dye Vital Signs Time BP (mmHg) HR (bpm) O2 Sat. RR (bpm) LOC 02:40 PM / % 4 = Oriented but drowsy 02:40 PM / % 4 = Oriented but drowsy 02:55 PM / % 4 = Oriented but drowsy 03:11 PM / % 4 = Oriented but drowsy 03:38 PM 93 / 68 73 96 % 16 4 = Oriented but drowsy 03:45 PM 96 / 70 71 94 % 14 4 = Oriented but drowsy 04:00 PM 108 / 79 64 94 % 14 4 = Oriented but drowsy 04:15 PM 104 / 77 73 92 % 12 4 = Oriented but drowsy 04:30 PM 108 / 90 70 95 % 14 4 = Oriented but drowsy 04:45 PM 113 / 87 69 93 % 16 5 = Fully awake and oriented or at pre-proc level 05:04 PM 108 / 72 73 93 % 16 5 = Fully awake and oriented or at pre-proc level 05:15 PM 103 / 80 68 93 % 16 5 = Fully awake and oriented or at pre-proc level 05:30 PM 112 / 80 70 94 % 16 5 = Fully awake and oriented or at pre-proc level Procedural Medications Time Medication Dose Units Method Given By 02:39 PM Oxygen 2 L/min nasal cannula [place], Becky SYKES 02:40 PM Benadryl 50 mg Intravenous [place], Becky SYKES 02:40 PM Solu-medrol 125 mg Intravenous [place], Becky SYKES 02:40 PM Versed 2 mg Intravenous [place], Becky SYKES 02:40 PM Fentanyl 50 mcg Intravenous [place], Becky SYKES 02:50 PM Oxygen 4 L/min nasal cannula [place], Becky SYKES 02:50 PM Lidocaine 2% 0.5 ml Subcutaneous Caden Huffman MD, FACC 02:53 PM Lidocaine 2% 10 ml Subcutaneous Caden Huffman MD, FACC 02:54 PM Oxygen 5 L/min Oxy Mask [place], Becky SYKES 03:06 PM Nitroglycerin 200 mcg Intracoronary Caden Huffman MD 03:07 PM Aggrastat 5mg/100ml 66.5 ml Intravenous [place], Becky SYKES 03:07 PM Aggrastat 12.5mg/250ml 24 ml Intravenous [place], Becky SYKES 03:08 PM Heparin 3000 units Intravenous [place], Becky SYKES 03:21 PM Plavix 600 mg Orally OnesimoBecky trinh RN ASA Classification: CLASS II- Mild systemic disease (i.e. well-controlled diabetes, hypertension, asthma, cigarette smoking) Melvin Score Preprocedure Postprocedure Activity 2- Moves 4 extremities sustained head lift Activity 2- Moves 4 extremities sustained head lift Circulation 2- SBP +/= 20 points of pre-anesthetic level Circulation 2- SBP +/= 20 points of pre-anesthetic level Consciousness 2- Awake and alert oriented x 3 Consciousness 2- Awake and alert oriented x 3 O2 Saturation 2- Able to maintain O2 satruation of 92% on room air O2 Saturation 2- Able to maintain O2 satruation of 92% on room air Respiratory 2- Able to deep breathe and cough well Respiratory 2- Able to deep breathe and cough well Total Score 10 Total Score 10 Contrast Agent: Isovue Diagnostic Contrast: 97 ml Total Contrast: 97 ml Fluoro Dose: 461 mGy Activated Clotting Time Time Seconds to Clot 03:08 PM 143 03:21 PM 240 04:30 PM 182 Procedure Log Time Note Enter By 02:39 PM Pt arrived to mine laborer 1 at 14:39 [email or web address] 02:39 PM Brigette Rodriguez RT (R) Position: Monitor Time in: 14:39 [email or web address] 02:39 PM Becky Echols RN Position: Mechanical Unit Repairer Time in: 14:39 [email or web address] 02:39 PM Juma Hardin RT (R) Position: Scrub Time in: 14:39 [email or web address] 02:39 PM Patient charges- Angio tray pack, Navilyst 3mm J, Pulse Oximetry and ACIST tubing and transducer [email or web address] 02:39 PM Case Delayed No [email or web address] 02:39 PM Hair removed from procedure site in holding area using clippers. Right wrist prepped with Chloraprep by Azul Mills RT, then patient was draped. Skin intact. [email or web address] 02:39 PM Hair removed from procedure site in holding area using clippers. Right groin prepped with Chloraprep by Azul Mills RT, then patient was draped. Skin intact. [email or web address] 02:39 PM Physician arrived 14:39 [email or web address] 02:39 PM ASA Class CLASS II- Mild systemic disease (i.e. well-controlled diabetes, hypertension, asthma, cigarette smoking) [email or web address] 02:39 PM Meet and grediana completed [email or web address] 02:39 PM Sign in performed according to hospital policy. [email or web address] 02:39 PM Procedure start 14:39 [email or web address] 02:40 PM Time: 14:39 Oxygen on at 2 L/min per nasal cannula by Becky Echols RN [email or web address] 02:40 PM Time: 14:40 Benadryl 50 mg Intravenous Given by Becky Echols RN [email or web address] 02:40 PM Time: 14:40 Solu-medrol 125 mg Intravenous Given by Becky Echols RN [email or web address] 02:40 PM Time: 14:40 Versed 2 mg Intravenous Given by Becky Echols RN [email or web address] 02:40 PM Time: 14:40 Fentanyl 50 mcg Intravenous Given by Becky Echols [email or web address] 02:40 PM Time: 14:40 Patient comfortable and pain free: Yes [email or web address] 02:40 PM Time: 14:40LOC: 4 = Oriented but drowsy [email or web address] 02:50 PM Time out performed according to hospital policy [email or web address] 02:50 PM Time: 14:50 Oxygen on at 4 L/min per nasal cannula by Becky Echols RN [email or web address] 02:50 PM Time: 14:50 0.5 ml Lidocaine 2% to right radial Subcutaneous Given by Caden Huffman MD, [facility] [email or web address] 02:52 PM Unsuccessful access attempt # 1 into the right Radial artery. Manual pressure applied to achieve hemostasis.. [email or web address] 02:53 PM Unsuccessful access attempt # 2 into the right Radial artery. Manual pressure applied to achieve hemostasis.. [email or web address] 02:54 PM Time: 14:53 10 ml Lidocaine 2% to right groin Subcutaneous Given by Caden Huffman MD, [facility] [email or web address] 02:54 PM Time: 14:54 Oxygen on at 5 L/min per Oxy Mask by Becky Echols RN [email or web address] 02:55 PM Access obtained by percutaneous puncture. 5Fr 10cm Terumo [place] sheath placed in right Femoral artery. [id number] [email or web address] 02:55 PM Time: 14:40LOC: 4 = Oriented but drowsy [email or web address] 02:55 PM Time: 14:40 Patient comfortable and pain free: Yes [email or web address] 02:56 PM 0.035 145cm Navilyst 3mmJ wire [id number] [email or web address] 02:57 PM 5Fr FL 4 catheter inserted over the wire DN [email or web address] 02:57 PM LCA angiography performed in multiple views. [email or web address] 02:59 PM Catheter removed [email or web address] 02:59 PM 5Fr FR 4 catheter inserted over the wire DN [email or web address] 02:59 PM RCA angiography performed in multiple views. [email or web address] 03:01 PM Catheter removed [email or web address] 03:01 PM Lesion found in Mid RCA. Pre Stenosis: 70 Pre KASSY Flow: 3: Complete and Brisk Flow/Perfusion [email or web address] 03:02 PM Lesion found in Proximal LAD. Pre Stenosis: 80 Pre KASSY Flow: 3: Complete and Brisk Flow/Perfusion [email or web address] 03:02 PM Catheter removed [email or web address] 03:02 PM Sheath exchanged for a 6 Fr 11 cm Cordis Lizzie sheath [id number] [email or web address] 03:03 PM 6Fr CLS 3.0 Runway guide catheter was used to cannulate the PCI vessel successfully. reused? No [email or web address] 03:03 PM .014 [place] 190cm guide wire across target lesion- successful. reused? No [email or web address] 03:03 PM Inflation device was opened. [email or web address] 03:07 PM Time: 15:06 Nitroglycerin 200 mcg Intracoronary Given by Caden Huffman MD [email or web address] 03:07 PM Time: 15:07 Aggrastat 5mg/100ml 66.5 ml Intravenous Given by Becky Echols RN Hearn pump [email or web address] 03:07 PM Time: 15:07 Aggrastat 12.5mg/250ml 24 ml Intravenous Given by Becky Echols RN Hearn pump [email or web address] 03:08 PM At 15:08 the ACT was 143 seconds. [email or web address] 03:08 PM Time: 15:08 Heparin 3000 units Intravenous Given by Becky Echols RN [email or web address] 03:09 PM 3.5mm x 16mm Synergy drug-eluting stent across target lesion- successful Lot #[id number] [email or web address] 03:11 PM Time: 14:55 Patient comfortable and pain free: Yes [email or web address] 03:11 PM Time: 14:55LOC: 4 = Oriented but drowsy [email or web address] 03:11 PM Stent deployed @ 16 kole for 22 seconds [email or web address] 03:11 PM Stent delivery system removed intact. [email or web address] 03:13 PM 4.5 mm x 8mm NC Trek Rx balloon across target lesion- successful. reused? No [email or web address] 03:14 PM Balloon inflated @ 12 kole for 10 seconds [email or web address] 03:14 PM Balloon catheter removed intact. [email or web address] 03:15 PM Guide wire removed intact. [email or web address] 03:15 PM Guide catheter removed intact. [email or web address] 03:16 PM Bolus angiogram of right Femoral complete: 4 ml/sec for a total of 7 mls [email or web address] 03:17 PM Procedure completed at 15:17 [email or web address] 03:17 PM Did you address KASSY flow and Dominance? Yes [email or web address] 03:17 PM Coronary Dominance: Left [email or web address] 03:17 PM Did you address KASSY flow and Dominance? Yes [email or web address] 03:17 PM Sign out completed: Radiation Dose 460.56 mGy Fluoro Time: 3.7 Isovue 370 - 200ml contrast 97 ml given by Caden Huffman MD, [facility]. Complications: NoneCardiac Rehab Consult needed: YesConfirmed administered medications: Yes [email or web address] 03:17 PM Isovue 370 - 200ml,1 Bottle(s) used. [email or web address] 03:17 PM Sheath left in place to be pulled on floor/holding areaV+Pad [email or web address] 03:18 PM Estimated Blood Loss: minimal [email or web address] 03:18 PM Post ECG Atrial Fibrillation [email or web address] 03:18 PM Post Blood Pressure 106/71 [email or web address] 03:18 PM Information taught Cardiac Cath and PCI [email or web address] 03:18 PM Education needs Procedure, Plan of Care, and Disease Process [email or web address] 03:18 PM Learning barriers :None [email or web address] 03:18 PM Education Methods Verbal [email or web address] 03:18 PM Education evaluation Able to repeat information [email or web address] 03:18 PM Site status No bleeding/hematoma - Rt Groin as reported by Juma Hardin RT (R) at 15:18 [email or web address] 03:18 PM Opsite applied [email or web address] 03:19 PM Delay to floor Bed availability [email or web address] 03:19 PM Family placed in consult room. [email or web address] 03:19 PM Complications: None [email or web address] 03:19 PM Fluoro Time: 3.7 [email or web address] 03:19 PM Isovue 370 - 200ml contrast [address] Huffman. [email or web address] 03:19 PM Radiation Dose 460.56 mGy [email or web address] 03:21 PM Time: 15:21 Plavix 600 mg Orally Given by Becky Echols RN [email or web address] 03:22 PM Patient out of room: 15:22 [email or web address] 03:26 PM Time: 15:11 Patient comfortable and pain free: Yes [email or web address] 03:26 PM Report given to Hanny SYKES Pt taken to Holding room Room #2. 15:26 [email or web address] 03:26 PM Patient out of room: 15:26 [email or web address] 03:37 PM pt checked into HR 2 [email or web address] 04:30 PM checked act. act result 182. notified dr. huffman. dr. huffman aware and states to pull sheath in 20 mins. [facility] 05:04 PM Arterial sheath pulled using manual compression and V+ Pad for 15 minutes by Ebony Ordoñez RN [facility] 05:20 PM hemostasis to right femoral artery. 2+ pedal pulses. [facility] 05:27 PM report called to anival amber at this time [facility] 05:31 PM Delay to floor Bed availability [facility] 05:31 PM Complications: None [facility] 05:31 PM Patient out of room: 17:31 [facility] Complications Complication None None None None Post Procedure Information Blood Pressure: 106/71 mmHg Rhythm: Atrial Fibrillation Post procedural instructions were given Site Checks Time Location Status Staff Sheath In? Note 03:18 PM Rt Groin No bleeding/hematoma Juma Hardin RT (R) Yes 03:38 PM Rt Groin No bleeding/ No Hematoma Jennifer Hollis RN Yes 03:45 PM Rt Groin No bleeding/ No Hematoma Ebony Ordoñez RN Yes 04:00 PM Rt Groin No bleeding/ No Hematoma Ebony Ordoñez RN Yes 04:15 PM Rt Groin No bleeding/ No Hematoma Ebony Ordoñez RN Yes 04:30 PM Rt Groin No bleeding/ No Hematoma Ebony Ordoñez RN Yes 04:45 PM Rt Groin No bleeding/ No Hematoma Lucas Gray RN Yes 05:04 PM Rt Groin No bleeding/ No Hematoma Ebony Ordoñez RN 05:15 PM Rt Groin No bleeding/ No Hematoma Ebony Ordoñez RN Pulses Time Site Pre-Procedure Post-Procedure Note 06/30/2017 3:23:00 PM Bilateral DP & PT 1+ 1+ 06/30/2017 3:38:00 PM 06/30/2017 3:45:00 PM Bilateral DP 2+ 06/30/2017 4:00:00 PM Bilateral DP 2+ 06/30/2017 4:15:00 PM Bilateral DP 2+ 06/30/2017 4:30:00 PM Bilateral DP 2+ 06/30/2017 5:04:00 PM Bilateral DP 2+ 06/30/2017 5:15:00 PM Bilateral DP 2+ Updated by Ebony Ordoñez RN on 06/30/2017 5:32:45 PM electronically signed on 06/30/2017 5:33:35 PM with status of Final
[2017-07-01 03:48] LABS: Hematocrit 41.2 % (37.5-50.1); Hemoglobin 14.4 g/dL (12.9-16.9)
[2017-07-01 03:55] LABS: INR 1.1; Prothrombin Time 11.7 Seconds (9.4-12.1)
[2017-07-01 04:19] LABS: BUN/Creatinine Ratio 23 (6-26); Blood Urea Nitrogen 25 mg/dL (8-23); eGFR For African Americans > 60 (> 60); eGFR For Non-African Americans > 60 (> 60)
[2017-07-01] MEDS: Acetaminophen 325 MG TABLET PO PRN (04:26)
[2017-07-01 07:26] VITALS: BP 144/70
[2017-07-01] MEDS: Metoprolol XL (24 HR) Succ 25 MG TAB.ER.24H PO SCH (07:48)
[2017-07-01] MEDS: Aspirin Enteric Coated 81 MG Tablet PO SCH (07:48)
[2017-07-01] MEDS: Furosemide 40 MG TABLET PO SCH (07:48)
[2017-07-01] MEDS: Lisinopril-HCTZ 20-12.5mg TABLET PO SCH (07:49)
[2017-07-01] MEDS: Magnesium Oxide 400 MG TABLET PO SCH (07:49)
--- NOTE | 2017-07-01 08:59 | Cardiology Progress Note ---
Date of Encounter: 07/01/17 Time of Encounter: 08:57 Assessment and Plan (1) Aortic stenosis Current Visit: Yes Status: Chronic Per cardiology: Known mod-severe per TTE 04/2016 with mean gradiant 37mmHg, peak velocity 3.73m/s, VÍCTOR 0.9cm2. Current echo shows EF 55-60%, indeterminate diastolic function, severe aortic stenosis, mild MR, mild TR, NSWMA. Per discussion with Dr. Feliz, recommend outpatient evaluation for TAVR. Patient prefers [place]. Message to be sent office to facilitate referral. Patient reports he lives at home alone. Recommend social work and PT evaluation for discharge assistance. Qualifiers: Cardiac valve disease etiology: etiology unspecified Qualified Code(s): I35.0 - Nonrheumatic aortic (valve) stenosis (2) A-fib Current Visit: Yes Status: Acute Per cardiology: -A.fib noted on admission. Remains rate controlled A. fib in the 70s. Denies previous diagnosis of a.fib. Continue beta gino. -Cecza0uyfe score 4 (age, HTN, vascular disease). Patient being started on Eliquis per primary service. Patient aware will be on triple therapy and already on aspirin and Plavix. Denies any bleeding or blood loss. Recommend monitor closely. Discussed with marko Rivers for DOAC since not mitral valve. Qualifiers: Atrial fibrillation type: unspecified Qualified Code(s): I48.91 - Unspecified atrial fibrillation (3) NSTEMI (non-ST elevated myocardial infarction) Current Visit: Yes Status: Acute Per Cardiology: Peak troponin 0.21. Currently chest pain-free. Status post catheterization and patient underwent PTCA/PCI with drug and stent to proximal LAD 70-80% lesion. Has diagonal 1 jailed lesion and distal LAD 60% lesion. Circumflex showed proximal and mid 30% lesions. Ramus 30% lesion. Mid RCA 70% lesion. On aspirin, Plavix, statin, beta gino, SUSY inhibitor. Recommend DC home with nitroglycerin pills. Kidney function stable status post catheterization. Postprocedure education provided. Cardiology will sign off, reconsult as needed , follow-up in outpatient setting arranged. (4) ITALO (acute kidney injury) Current Visit: No Status: Acute Per Cardiology: Resolved and stable s/p cath. Discussion w patient/family: The assessment and plan as outlined above was discussed with the patient who expressed understanding and agreement. All questions were answered. Thank you for involving us in the care of your patient. Please call with any questions. Subjective Principal diagnosis: Severe Interval history: Patient denies any chest pain, shortness of breath, palpitations. Denies any active bleeding or blood loss. Denies any concerns from his right wrist or right groin site. Objective Vital Signs, Last 4 Hours Temp Pulse Resp BP Pulse Ox 07/01/17 07:23 97.7 F 87 17 144/70 97 General: Conversant, No Apparent Distress HEENT: Atraumatic, Normocephaly, Mucus Membranes Moist Neck: No JVD, Normal carotid pulses Cardiac: Reg Rate and Rhythm, Normal S1 and S2, Other (Grade III/) Lungs: Normal Breath Sounds, No Wheeze, Rales, Rhonchi, Other (Mild conversational dyspnea noted) Neuro: Alert and responsive, No focal deficits noted Abdomen: Soft, Non-Tender Skin: No rashes noted on visualized skin, Other (Right wrist site trying intact , no hematoma, no bleeding, no ecchymosis, right radial pulse 2+ palpable, right groin site mild ecchymosis, no bleeding, right PT and DP pulses 1+ palpable) Musculoskeletal: No Chest Wall Tenderness Extremities: No Clubbing, No Cyanosis, No Edema, Normal Pulses Results 07/01/17 03:25 07/01/17 03:25 Lab Results Laboratory Tests 06/28/17 06/29/17 06/29/17 20:35 00:06 00:06 Hgb Hct INR Creatinine Est GFR (Non-Af Amer) Magnesium 1.9 Troponin I 0.18 H* 0.21 H* LDL Cholesterol, Calc TSH 06/29/17 06/29/17 06/29/17 04:00 04:00 06:25 Hgb Hct INR Creatinine Est GFR (Non-Af Amer) Magnesium Troponin I 0.19 H* LDL Cholesterol, Calc 88 TSH 2.403 07/01/17 07/01/17 07/01/17 03:25 03:25 03:25 Hgb 14.4 Hct 41.2 INR 1.1 Creatinine 1.07 Est GFR (Non-Af Amer) > 60 Magnesium Troponin I LDL Cholesterol, Calc TSH ITS Impressions Cervical Spine CT 06/28/17 20:37 IMPRESSION: No acute intracranial abnormality. No acute abnormality of the cervical spine. D/ / Isabella Jeong Cha, MD / Isabella Jeong Cha, MD Interpreting Provider: Isabella Jeong Cha, MD Chest X-Ray 06/28/17 20:37 IMPRESSION: 1. Mild opacity at the left lung base which are favored to reflect atelectasis. Focal infiltrate cannot entirely be excluded in the appropriate clinical setting. D/ / Oniel Jimenez MD / Oniel Jimenez MD Interpreting Provider: Oniel Jimenez MD Head CT 06/28/17 20:37 IMPRESSION: No acute intracranial abnormality. No acute abnormality of the cervical spine. D/ / Isabelal Jeong Cha, MD / Isabella Jeong Cha, MD Interpreting Provider: Isabella Jeong Cha, MD Echocardiogram 06/28/17 23:41 Impressions: LVEF 55-60%. Indeterminate diastolic function. Definity echo contrast was used. Mild to moderate concentric left ventricular hypertrophy. Normal right ventricular structure and function. Severe aortic stenosis. Mild mitral regurgitation. Mild tricuspid regurgitation. Borderline pulmonary hypertension by TR gradient, 32 mmHg. IVC not well visualized. Left Ventricular Wall Motion: Rest Echo Findings All wall segments showed normal motion. Findings: Study Quality * Technically challenging due to body habitus. ECG Findings * Atrial fibrillation. Left Ventricle * LVEF 55-60%. * Indeterminate diastolic function. * There is no LV thrombus. * Definity echo contrast was used. * Normal LV chamber size. * Mild to moderate concentric left ventricular hypertrophy. Right Ventricle * Normal right ventricular structure and function. Left Atrium * Normal left atrial size. Right Atrium * Normal right atrial size. Aortic Valve * Aortic valve not well visualized. * Densely calcified aortic valve. * Trace aortic regurgitation. * Severe aortic stenosis. PV 4.6m/s, MG 49 mmHg, DI 0.21, VÍCTOR 0.67cm2 Mitral Valve * No mitral regurgitation. * Normal mitral valve structure. * No mitral stenosis. * Mild mitral regurgitation. Tricuspid Valve * Tricuspid valve not well visualized. * Mild tricuspid regurgitation. Pulmonic Valve * Pulmonic valve is not well visualized. * No pulmonic stenosis. * No pulmonic regurgitation. Pulmonary Artery * Pulmonary artery not well visualized. Aorta * Normally sized aortic root. Pericardium * There is no pericardial effusion present. Interatrial Septum * Interatrial septum not well evaluated. IVC * The IVC is not well evaluated. Active Medications Acetaminophen (Tylenol) 650 mg PO Q6HR PRN PRN Reason: Mild Pain/Fever Stop: 12/28/17 23:35 Last Admin: 07/01/17 04:26 Dose: 325 mg Albuterol Sulfate (Albuterol Inhaler) 2 puff IH Q4H PRN PRN Reason: Shortness Of Breath Stop: 12/28/17 23:41 Aspirin (Aspirin Ec) 81 mg PO DAILY [facility] Stop: 12/29/17 12:16 Last Admin: 07/01/17 07:48 Dose: 81 mg Clopidogrel Bisulfate (Plavix) 75 mg PO DAILY [facility] Stop: 12/31/17 09:01 Last Admin: 07/01/17 07:49 Dose: 75 mg Furosemide (Lasix) 40 mg PO DAILY [facility] Stop: 12/29/17 09:01 Last Admin: 07/01/17 07:48 Dose: 40 mg Lisinopril/HCTZ (Prinzide 20-12.5) 1 each PO DAILY [facility] Stop: 12/29/17 09:01 Last Admin: 07/01/17 07:49 Dose: 1 each Heparin Sodium (Porcine) (Heparin) 4,000 unit IVP Q6HR PRN PRN Reason: SEE COMMENTS Stop: 12/28/17 21:40 Heparin Sodium (Porcine) (Heparin) 2,000 unit IVP Q6H PRN PRN Reason: SEE COMMENTS Stop: 12/28/17 21:40 Heparin Sodium/Dextrose (Heparin 25,000 Unit/500 Ml D5w) 25,000 unit in 500 mls @ 19.958 mls/hr IVC .Q24H JORGE; 8 UNIT/KG/HR PRN Reason: Protocol Stop: 12/28/17 21:46 Last Admin: 06/30/17 21:28 Dose: Not Given Magnesium Oxide (Mag-Ox) 400 mg PO TID [facility] Stop: 12/29/17 09:01 Last Admin: 07/01/17 07:49 Dose: 400 mg Metoprolol Succinate (Toprol Xl) 12.5 mg PO DAILY [facility] Stop: 12/29/17 12:16 Last Admin: 07/01/17 07:48 Dose: 12.5 mg Montelukast Sodium (Singulair) 10 mg PO HS [facility] Stop: 12/29/17 21:01 Last Admin: 06/30/17 21:27 Dose: 10 mg Naloxone HCl (Narcan) 0.4 mg IVP Q2MIN PRN PRN Reason: SEE COMMENTS Stop: 12/28/17 23:35 Omeprazole (Prilosec) 20 mg PO DAILY JORGE PRN Reason: Protocol Stop: 12/29/17 09:01 Last Admin: 07/01/17 07:49 Dose: 20 mg Ondansetron HCl (Zofran) 4 mg IVP Q6HR PRN; Protocol PRN Reason: Nausea And Vomiting Stop: 12/30/17 15:57 Polyethylene Glycol (Miralax) 17 gm PO DAILY [facility] Stop: 12/30/17 09:01 Last Admin: 07/01/17 07:49 Dose: 17 gm - Imaging and Cardiology Echo: report reviewed Cardiac cath: report reviewed - EKG Interpretation EKG results cardiology: other (Telemetry shows average heart rate the past 12 hours 76, atrial fibrillation) - VTE Documentation of Mechanical Device: Intermittent pneumatic compression device Consult Discharge Plan - Plan Instructions: Myocardial Infarction (DC), Atrial Fibrillation (DC), Syncope (DC ) [facility]: [facility] [place] [Primary Care Provider] - 07/08/17 8:30 am Prescriptions: Apixaban [Eliquis] 5 mg PO BID #60 tablet Aspirin Enteric Coated [Aspirin EC] 81 mg PO DAILY #30 tablet.
[2017-07-01 09:00] LABS: Estimated Average Glucose 154 mg/dl
--- NOTE | 2017-07-01 10:43 | Discharge Summary ---
<AlejaAdrienRomero T - Last Filed: 07/01/17 15:23> Orders not resulted at time of discharge: Pending orders 06/30/17 15:56 ECG 12 lead ECG [ECG] Stat 07/01/17 06:00 ECG 12 lead ECG [ECG] AM 0600 Date of Encounter: 07/01/17 - Discharge Diagnosis (1) DVT prophylaxis Status: Acute (2) Diastolic heart failure Status: Chronic Qualifiers: Heart failure chronicity: acute on chronic Qualified Code(s): I50.33 - Acute on chronic diastolic (congestive) heart failure (3) HTN (hypertension) Status: Chronic Qualifiers: Hypertension type: essential hypertension Qualified Code(s): I10 - Essential (primary) hypertension (4) NSTEMI (non-ST elevated myocardial infarction) Status: Acute (5) Syncope Status: Acute Qualifiers: Syncope type: unspecified Qualified Code(s): R55 - Syncope and collapse (6) A-fib Status: Acute Qualifiers: Atrial fibrillation type: unspecified Qualified Code(s): I48.91 - Unspecified atrial fibrillation (7) Diabetes Status: Acute Qualifiers: Diabetes mellitus type: type 2 Diabetes mellitus detention insulin use: without termination clerk use Diabetes mellitus complication status: without complication Qualified Code(s): E11.9 - Type 2 diabetes mellitus without complications (8) CKD (chronic kidney disease) Status: Acute Qualifiers: Chronic kidney disease stage: stage 3 (moderate) Qualified Code(s): N18.3 - Chronic kidney disease, stage 3 (moderate) (9) Aortic stenosis Status: Chronic Qualifiers: Cardiac valve disease etiology: etiology unspecified Qualified Code(s): I35.0 - Nonrheumatic aortic (valve) stenosis Hospital course: Mr. Pond is a 87 year old male - Time Spent with Patient Total time spent providing and/or coordinating discharge services: - Discharge Medications Prescriptions: Aspirin Enteric Coated [Aspirin EC] 81 mg PO DAILY #30 tablet. Clopidogrel [Plavix] 75 mg PO DAILY #30 tablet Warfarin [Coumadin] 2.5 mg PO DAILY 30 Days #30 tablet Home Medications: Lisinopril-HCTZ 20-12.5 [Prinzide 20-12.5] 1 tab PO DAILY 12/11/15 [History] Omeprazole [PriLOSEC] 20 mg PO DAILY 12/11/15 [History] Furosemide [Lasix] 40 mg PO DAILY 08/09/16 [History] Albuterol Sulfate [Albuterol Inhaler] 2 puff IH Q4HR PRN #1 hfa.aer.ad 08/11/16 [Rx] Montelukast [Singulair] 10 mg PO HS #30 tablet 08/11/16 [Rx] Magnesium Oxide [Magnesium] 400 mg PO TID 06/28/17 [History] Aspirin Enteric Coated [Aspirin EC] 81 mg PO DAILY #30 tablet. 07/01/17 [Rx] Clopidogrel [Plavix] 75 mg PO DAILY #30 tablet 07/01/17 [Rx] Warfarin [Coumadin] 2.5 mg PO DAILY 30 Days #30 tablet 07/01/17 [Rx] Allergies/Adverse Reactions: 3 Allergy/AdvReac Type Severity Reaction Status Date / Time Iodinated Contrast- Oral and Allergy Swelling Verified 08/08/16 23:07 IV Dye of Lip/Tongue/Throat Date of admission: 06/29/17 00:02 Primary care physician: Pranav Whitfield MD Consults: 06/30/17 15:56 Consult to Cardiac Rehabilitation-Phase1 [CONS] Routine Comment: Reason for Consult: post op PCI Call Completed: Yes 06/30/17 17:45 Consult to Airways Operations Specialist [CONS] Routine Reason for SW Consult: pt would like information about life alert - Constitutional Vitals: Temp Pulse Resp BP Pulse Ox 97.7 F 87 17 144/70 97 07/01/17 07:23 07/01/17 07:23 07/01/17 07:23 07/01/17 07:23 07/01/17 07:23 - Patient Status Disposition: Home, Self-Care Condition: Undetermined - Discharge Instructions Instructions: Warfarin (By mouth), Aspirin (By mouth), Clopidogrel (By mouth), Myocardial Infarction (DC), Atrial Fibrillation (DC), Syncope (DC) Follow Up With: Marcos Castaneda SOIL SCIENCE PROFESSOR [Advanced Practice Nurse] - (Cardiology office will contact you with appt date & time. If they do not call you by Wednesday, please call them.) Pranav Whitfield MD [Primary Care Provider] - 07/08/17 8:30 am Additional Instructions: PLEASE GO TO DR. WHITFIELD'S OFFICE ON WEDNESDAY @4:30 TO GET YOUR BLOOD DRAWN TO CHECK PT/INR FOR YOUR COUMADIN DOSING. INFO GIVEN TO YOU ABOUT LIFE ALERT. RISK FACTORS: STOP SMOKING: If you smoke, STOP. Smoking or tobacco use significantly increases your risk of heart disease because nicotine causes the arteries to narrow or constrict. It also causes fats to stick to the artery. Your chances of having a heart attack are greatly increased if you continue to smoke. For more information, call the education line for smoking cessation 3-665-OLKJFZX EAT A LOW FAT/CHOLESTEROL/SODIUM DIET: This diet may help reduce your chances of having a heart attack. LIFTING: Avoid lifting anything more than 10 pounds for 5-7 days Prior to straining, laughing, sneezing and/or coughing, apply manual pressure directly over insertion site. ACTIVITY: You may walk or climb stairs as tolerated You can resume sexual activity as tolerated In general, you are encouraged to engage in a minimum of 30 minutes or more of moderate intensity physical activity, such as brisk walking, daily or at least 3 -4 times weekly BATHING Do not submerge the site into water (bath tub, hot tub, swimming pool) for 1 week. This can be a source for infection into the blood stream. You may shower after 24 hours SITE CARE: After 24 hours, you may remove the dressing and leave the site open to air. Keep the site clean and dry. Clean gently and pat dry. You can expect bruising and tenderness that gradually resolve within a week or two. Return to work as instructed per your physician- TAKE IT EASY FOR ONE WEEK AFTER PROCEDURE Resume driving as instructed per physician-3 DAYS AFTER PROCEDURE Keep all scheduled follow up appointments Resume medications as instructed IMPORTANT: If prescribed a Platelet Aggregation Inhibitor such as, Plavix, Brilinta or Effient: Duration of therapy is minimum one year These medications are often used in combination with Aspirin in prevention of future heart attacks Never discontinue unless consult with your Air Carrier Maintenance Inspector STROKE (CVA) Risk factors for a stroke are: Age, cigarette smoking, diabetes, excessive alcohol consumption, family history, high blood pressure, overweight, physical inactivity, prior stroke, heart attack, diagnosis of carotid artery stenosis or other artery disease. Warning signs: Sudden numbness or weakness of the face, arm or leg; especially on one side of the body, sudden confusion, trouble speaking or understanding, sudden trouble seeing in one or both eyes, sudden trouble walking, dizziness, loss of balance or coordination, sudden severe headache with no cause. Call 911 or go to the Emergency Room. CONGESTIVE HEART FAILURE: If you have been diagnosed with Congestive Heart Failure (CHF) and your symptoms return, make an appointment with your physician Weigh yourself daily. Notify your physician if you have a weight gain of two or more pounds in one day or five or more pounds in one week. If you experience any difficulty breathing, please call 911 BLEEDING: Although the risk of bleeding is minimal, it can happen. If you have any bleeding from the site, apply firm pressure above the puncture site for 10-15 minutes. If the bleeding does not stop, continue manual pressure and call 911 Contact your physician if: You develop a fever greater than 101 degrees Fahrenheit Your site becomes reddened or has any drainage You have an increase in pain or burning at the site or if a large knot forms at the site. If you experience chest pain, shortness of breath, dizziness, or extreme tiredness, stop the activity and rest. Please notify your physicians office if you experience any of these symptoms and they are not relieved by rest please call 911! - Attending Attestation I saw and examined this patient 07/01, and my medical decision-making was reviewed with the Resident Physician. I agree with the documented findings, disposition and treatment plan as described except to the extent set forth below. 87 M with CKD III, CHFrEF admitted and being managed for syncope, mew onset Afib , and NSTEMI. s/p [facility] 06/30 ith stent placement, no new complains, chest pain has mostly resolved. Exam :VSS, exam unremarkable, AAOX3, access sites on R wrist and R groin with no bleeding, patient is ambulatory chest is clear, hear S1, S2 , irregular , a loud murmur. ECHO noted for severe -(symptomatic), Labs unremarkable [facility] is 45 USD and the patient states he cannot afford it. Patient has decided on Coumadin. The patient is clinically and hemodynamically stable, ambulatory, can be discharged home on aspirin, Plavix, beta gino, SUSY inhibitor, warfarin. Appointment has been set with patient's primary care physician for Wednesday for INR check and follow-up. Plan of care discussed with the patient verbalized understanding. Rest as in the resident physician's documentation <Carter Anderson - Last Filed: 07/01/17 16:31> Orders not resulted at time of discharge: Pending orders 06/30/17 15:56 ECG 12 lead ECG [ECG] Stat 07/01/17 06:00 ECG 12 lead ECG [ECG] AM 0600 Date of Encounter: 07/01/17 Time of Encounter: 10:30 - Discharge Diagnosis (1) NSTEMI (non-ST elevated myocardial infarction) Priority: Primary Status: Acute (2) Diastolic heart failure Priority: Primary Status: Chronic Qualifiers: Heart failure chronicity: acute on chronic Qualified Code(s): I50.33 - Acute on chronic diastolic (congestive) heart failure (3) HTN (hypertension) Priority: Secondary Status: Chronic Qualifiers: Hypertension type: essential hypertension Qualified Code(s): I10 - Essential (primary) hypertension (4) Syncope Priority: Primary Status: Acute Qualifiers: Syncope type: unspecified Qualified Code(s): R55 - Syncope and collapse (5) A-fib Priority: Secondary Status: Acute Qualifiers: Atrial fibrillation type: unspecified Qualified Code(s): I48.91 - Unspecified atrial fibrillation (6) Diabetes Priority: Secondary Status: Acute Qualifiers: Diabetes mellitus type: type 2 Diabetes mellitus detention insulin use: without termination clerk use Diabetes mellitus complication status: without complication Qualified Code(s): E11.9 - Type 2 diabetes mellitus without complications (7) CKD (chronic kidney disease) Priority: Secondary Status: Acute Qualifiers: Chronic kidney disease stage: stage 3 (moderate) Qualified Code(s): N18.3 - Chronic kidney disease, stage 3 (moderate) (8) Aortic stenosis Priority: Secondary Status: Chronic Qualifiers: Cardiac valve disease etiology: etiology unspecified Qualified Code(s): I35.0 - Nonrheumatic aortic (valve) stenosis Hospital course: Mr. Pond is an 87 year old male with a PMH of HTN, Severe Aortic stenosis, CKD III, and CHFrEF who presented after a syncopal episode and fall prior to arrival. He reported right sided neck and chest pain s/p fall. In the emergency room, CT head and neck were unremarkable. Patient had elevated serial troponins. Cardiology was consulted by ER physician. Patient diagnosed with NSTEMI and had PTCA/PCI with drug eluding stent placement to proximal LAD 70-80 % lesion. He also found to have new onset A. fib, with [id number] score 4 (age, HTN, vascular disease). Patient was started on heparin drip. Per pharmacy, [facility] is 45 USD and the patient states he cannot afford it. Patient decided on Coumadin therapy. The patient was clinically and hemodynamically stable, ambulatory, and discharged home on aspirin, Plavix, beta gino, SUSY inhibitor , and warfarin. Appointment has been set with patient's primary care physician for Wednesday07/05/2017 for INR check and follow-up. Patient will see cardiology as an outpatient for TAVR referral. Discharge discussed with: patient Time spent discussing smoking cessation with patient: more than 10 minutes - Time Spent with Patient Total time spent providing and/or coordinating discharge services: Greater than 30 minutes Date of admission: 06/29/17 00:02 Primary care physician: Pranav Whitfield MD Consults: 06/30/17 15:56 Consult to Cardiac Rehabilitation-Phase1 [CONS] Routine Comment: Reason for Consult: post op PCI Call Completed: Yes 06/30/17 17:45 Consult to Airways Operations Specialist [CONS] Routine Reason for SW Consult: pt would like information about life alert - Constitutional Vitals: Temp Pulse Resp BP Pulse Ox 97.7 F 87 17 144/70 97 07/01/17 07:23 07/01/17 07:23 07/01/17 07:23 07/01/17 07:23 07/01/17 07:23 General appearance: Present: cooperative, A&O X 3, pleasant, no acute distress, answers questions appropriately - Head Head exam: Present: atraumatic, normocephalic - Eye Eye exam: Present: normal appearance, conjuntiva pink, sclera anicteric - Neck Neck exam general surgery: Present: supple, trachea midline. Absent: lymphadenopathy - Respiratory Respiratory exam: Present: CTAB. Absent: accessory muscle use, rales, rhonchi, wheezes - Cardiovascular Cardiovascular exam: Present: RRR, +S1, +S2. Absent: diastolic murmur, gallop, rubs, systolic murmur - GI/Abdominal GI/Abdominal exam: Present: normal bowel sounds, soft, no peritoneal signs. Absent: distended, tenderness - Extremities Exam Extremities exam: Present: warm, radial pulses palpable and symmetrical. Absent : calf tenderness, cyanotic, pedal edema - Neurological Exam Neurological exam: Present: CN II-XII intact, oriented X3, no focal deficits. Absent: pronater drift, facial droop, speech deficit - Skin Skin exam: Present: dry, intact - Patient Status Functional capacity at discharge: independent ambulation Overall status at discharge: patient is back to baseline - Diet and Activity Activity: as per physical therapy, resume usual activities as tolerated Diet: advance to your usual diet - VTE Documentation of Mechanical Device: Intermittent pneumatic compression device
[2017-07-01] MEDS ORDERED: Nitroglycerin 0.4 MG TAB.SUBL SL PRN (11:17)
== END 2017-07-01 15:58 | disposition home or self-care (01) | DRG 246 ==
LOC: EMEROO 20:26 → 2NENU 20:26 → SUATTDRO 06-29 00:02
PROVIDERS: ADMIT Internal Medicine; ATTEND Internal Medicine

== ENCOUNTER 2017-10-22 01:25 | Observation (INO) ==
--- NOTE | 2017-10-22 01:35 | Emergency Department Note ---
Disposition Clinical Impression: ITALO (acute kidney injury), Dizziness Disposition: Admitted As Inpatient Condition: Undetermined General Adult HPI - General Chief complaint: ED Dizziness Stated complaint: multiple c/o Time Seen by Provider: 10/22/17 01:27 Source: patient, family Limitations: no limitations - History of Present Illness Pain Scale: 0 - Related Data Home Medications Medication Instructions Recorded Confirmed Lisinopril-HCTZ 20-12.5 [Prinzide 1 tab PO DAILY 12/11/15 10/22/17 20-12.5] Omeprazole [PriLOSEC] 20 mg PO DAILY 12/11/15 10/22/17 Furosemide [Lasix] 40 mg PO BID 08/09/16 10/22/17 Magnesium Oxide [Magnesium] 400 mg PO TID 06/28/17 10/22/17 Warfarin Sodium [Coumadin] 6 mg PO TUTH 09/17/17 10/22/17 Warfarin [Coumadin] 8.5 mg PO SUMOWEFRSA 09/17/17 10/22/17 Previous Rx's Medication Instructions Recorded Montelukast [Singulair] 10 mg PO HS #30 tablet 08/11/16 Aspirin Enteric Coated [Aspirin EC] 81 mg PO DAILY #30 tablet. 07/01/17 Clopidogrel [Plavix] 75 mg PO DAILY #30 tablet 07/01/17 Allergies Allergy/AdvReac Type Severity Reaction Status Date / Time Iodinated Contrast- Oral and Allergy Swelling Verified 10/22/17 09:53 IV Dye of Lip/Tongue/Throat Past Medical History - Past Medical History Medical history: Reports: CHF, diabetes, glaucoma, hypertension, RA, renal disease, valvular heart disease Surgical history: Reports: appendectomy, cholecystectomy Psychiatric history: Reports: no psych history - Social History Smoking Status: Former smoker Smokeless Tobacco Status: No Alcohol use: Reports: none Drug use: Reports: none Physical Exam - General Limitations: no limitations General appearance: alert, in no apparent distress Course Vital Signs Temperature 98.0 F 10/22/17 01:26 Pulse Rate 81 10/22/17 01:26 Respiratory Rate 20 10/22/17 01:26 Blood Pressure 144/73 10/22/17 01:26 O2 Sat by Pulse Oximetry 98 10/22/17 01:26 Temperature 98.0 F 10/22/17 19:11 Pulse Rate 62 10/22/17 19:11 Respiratory Rate 16 10/22/17 19:11 Blood Pressure 110/57 10/22/17 19:11 O2 Sat by Pulse Oximetry 96 10/22/17 19:11 Oxygen Delivery Oxygen Delivery Room Air Medical Decision Making - Lab Data Result diagrams: 10/22/17 01:47 10/22/17 01:47 Lab Results 10/22/17 10/22/17 10/22/17 Range/Units 01:47 01:47 01:47 WBC 7.7 (4.3-11.1) K/mcL RBC 4.22 (4.19-5.50) M/mcL Hgb 14.5 (12.9-16.9) g/dL Hct 42.3 (37.5-50.1) % MCV 100.2 H (83.0-100.0) fL MCH 34.4 H (28.0-33.3) pg MCHC 34.3 (31.6-35.5) g/dL RDW 13.0 (11.5-14.5) % Plt Count 131 L (140-400) K/mcL MPV 10.9 (9.4-12.4) fL Immature Gran % 0.4 (0-4) % Seg Neutrophils % 63.4 % Lymphocytes % 22.1 % Monocytes % 10.1 % Eosinophils % 3.3 % Basophils % 0.7 % Neutrophils # 4.9 (1.6-8.9) K/mcL Lymphocytes # 1.7 (0.6-4.6) K/mcL Monocytes # 0.8 (0.0-1.3) K/mcL Eosinophils # 0.3 (0.0-0.6) K/mcL Basophils # 0.1 (0.0-0.2) K/mcL PT 33.2 H (9.4-12.1) Seconds INR 2.9 Sodium 139 (136-145) mEq/L Potassium 4.1 (3.5-5.1) mEq/L Chloride 100 (98-107) mEq/L Carbon Dioxide 31 H (23-29) mEq/L BUN 51 H (8-23) mg/dL Creatinine 1.82 H (0.70-1.30) mg/dL Est GFR ( Amer) 43 L (> 60) Est GFR (Non-Af Amer) 36 L (> 60) BUN/Creatinine Ratio 28 H (6-26) Glucose 150 H (70-105) mg/dL Calculated Osmolality 305 H (280-300) Calcium 10.2 (8.6-10.3) mg/dL Magnesium 2.0 (1.6-2.6) mg/dL Troponin I 0.03 (< 0.04) ng/mL B-Natriuretic Peptide (Less than 100) pg/mL Urine Color (Yellow) Urine Clarity (Clear) Urine pH (5.0-8.0) pH Units Ur Specific [place] (1.010-1.025) Urine Protein (Neg-Trace) mg/dL Urine Glucose (UA) (Normal) mg/dL Urine Ketones (Negative) mg/dL Urine Blood (Negative) Urine Nitrite (Negative) Urine Bilirubin (Negative) Urine Urobilinogen (Normal) mg/dL Ur Leukocyte Esterase (Negative) Ur Culture Indicated? (NO) 10/22/17 10/22/17 Range/Units 01:47 02:55 WBC (4.3-11.1) K/mcL RBC (4.19-5.50) M/mcL Hgb (12.9-16.9) g/dL Hct (37.5-50.1) % MCV (83.0-100.0) fL MCH (28.0-33.3) pg MCHC (31.6-35.5) g/dL RDW (11.5-14.5) % Plt Count (140-400) K/mcL MPV (9.4-12.4) fL Immature Gran % (0-4) % Seg Neutrophils % % Lymphocytes % % Monocytes % % Eosinophils % % Basophils % % Neutrophils # (1.6-8.9) K/mcL Lymphocytes # (0.6-4.6) K/mcL Monocytes # (0.0-1.3) K/mcL Eosinophils # (0.0-0.6) K/mcL Basophils # (0.0-0.2) K/mcL PT (9.4-12.1) Seconds INR Sodium (136-145) mEq/L Potassium (3.5-5.1) mEq/L Chloride (98-107) mEq/L Carbon Dioxide (23-29) mEq/L BUN (8-23) mg/dL Creatinine (0.70-1.30) mg/dL Est GFR ( Amer) (> 60) Est GFR (Non-Af Amer) (> 60) BUN/Creatinine Ratio (6-26) Glucose (70-105) mg/dL Calculated Osmolality (280-300) Calcium (8.6-10.3) mg/dL Magnesium (1.6-2.6) mg/dL Troponin I (< 0.04) ng/mL B-Natriuretic Peptide 114 H (Less than 100) pg/mL Urine Color Yellow (Yellow) Urine Clarity Clear (Clear) Urine pH 6.0 (5.0-8.0) pH Units Ur Specific [place] 1.017 (1.010-1.025) Urine Protein Negative (Neg-Trace) mg/dL Urine Glucose (UA) Normal (Normal) mg/dL Urine Ketones Negative (Negative) mg/dL Urine Blood Negative (Negative) Urine Nitrite Negative (Negative) Urine Bilirubin Negative (Negative) Urine Urobilinogen Normal (Normal) mg/dL Ur Leukocyte Esterase Negative (Negative) Ur Culture Indicated? NO (NO) Attestation Statement - Attestation Attestation: I examined this patient and my medical decision-making was reviewed with the Resident Physician. I agree with the documented findings, disposition and treatment plan as described except to the extent set forth below. [id number]-maic time provided Patient arrives in the care of family complaining of dyspnea and dizziness. He has a history of chronic kidney disease. Case discussed with the resident physician . Patient appears in no acute distress on exam
--- NOTE | 2017-10-22 01:38 | Emergency Department Note ---
Disposition Clinical Impression: ITALO (acute kidney injury), Dizziness Disposition: Admitted As Inpatient Condition: Undetermined Referrals: Pranav Whitfield MD [Primary Care Provider] - Forms: ED Satisfaction Letter Time of Disposition: 03:54 Dizziness HPI - General Chief Complaint: ED Dizziness Stated Complaint: multiple c/o Time Seen by Provider: 10/22/17 01:27 Source: patient, family Mode of arrival: private vehicle Limitations: no limitations Nursing Notes Reviewed: Yes Vital Signs Reviewed: Yes - History of Present Illness HPI Narrative: 87-year-old male with recent TAPVR at [facility] roughly 3 months ago arrives to the emergency department with complaint of dizziness, shortness of breath. The patient states that he started experiencing the symptoms a couple days ago and he has had numerous falls. No LOC and no injuries to the head. The patient states that his last INR was 8. The patient denies any chest pain. He denies any other complaints at this time other than just feeling weak and ill feeling. The patient is describing myalgias. He denies any fevers, chills, cough, abdominal pain, dysuria. Patient also notes that while he was outpatient they performed a renal function test which demonstrated elevated renal function. Patient denies any other complaints at this time. He is lucid in the room and answering all questions appropriately. He is in no acute distress at this time. - Related Data Home Medications Medication Instructions Recorded Confirmed Lisinopril-HCTZ 20-12.5 [Prinzide 1 tab PO DAILY 12/11/15 09/17/17 20-12.5] Omeprazole [PriLOSEC] 20 mg PO DAILY 12/11/15 09/17/17 Furosemide [Lasix] 40 mg PO BID 08/09/16 09/17/17 Magnesium Oxide [Magnesium] 400 mg PO TID 06/28/17 09/17/17 Warfarin Sodium [Coumadin] 6 mg PO TH 09/17/17 09/17/17 Warfarin [Coumadin] 8.5 mg PO SUMOTUWEFRSA 09/17/17 09/17/17 Previous Rx's Medication Instructions Recorded Albuterol Sulfate [Albuterol 2 puff IH Q4HR PRN #1 hfa.aer.ad 08/11/16 Inhaler] Montelukast [Singulair] 10 mg PO HS #30 tablet 08/11/16 Aspirin Enteric Coated [Aspirin EC] 81 mg PO DAILY #30 tablet. 07/01/17 Clopidogrel [Plavix] 75 mg PO DAILY #30 tablet 07/01/17 Allergies Allergy/AdvReac Type Severity Reaction Status Date / Time Iodinated Contrast- Oral and Allergy Swelling Verified 08/08/16 23:07 IV Dye of Lip/Tongue/Throat All systems ED: reviewed and negative except as stated. Constitutional: Reports: weakness. Denies: fever, chills ENT ED: Denies: dysphagia Cardiovascular: Reports: dyspnea on exertion, edema. Denies: chest pain, orthopnea, syncope Respiratory: Reports: dyspnea. Denies: cough, wheezes, sputum production Gastrointestinal: Denies: abdominal pain, nausea, vomiting, diarrhea, constipation Genitourinary: Denies: urgency, dysuria Musculoskeletal: Reports: myalgia. Denies: back pain, neck pain, arthralgia Integumentary: Denies: rash Neurological: Denies: headache Past Medical History - Past Medical History Attestation: Yes The following information was validated with the patient. Source: patient, old records reviewed Medical history: Reports: CHF, diabetes, glaucoma, hypertension, RA, renal disease, valvular heart disease Surgical history: Reports: appendectomy, cholecystectomy Psychiatric history: Reports: no psych history - Social History Smoking Status: Former smoker Smokeless Tobacco Status: No Alcohol use: Reports: none Drug use: Reports: none Physical Exam - General Limitations: no limitations General appearance: alert, in no apparent distress - Head Head exam: atraumatic, normocephalic, normal inspection - Eye Eye exam: Present: normal appearance, PERRL, EOMI - ENT ENT exam: normal exam, normal oropharynx, mucous membranes moist - Neck Neck exam: Present: normal inspection, full ROM, trachea midline - Chest Chest inspection: Present: normal inspection, symmetric chest wall rise - Respiratory Respiratory exam: Present: normal lung sounds bilaterally - Cardiovascular Cardiovascular exam: Present: regular rate, normal rhythm, normal heart sounds, clicks - Abdominal Exam Abdominal exam: Present: soft, Non-Tender. Absent: tenderness, distention, guarding, rebound, rigidity - Extremities Exam Extremities exam: Present: normal inspection, full ROM. Absent: tenderness, pedal edema - Neurological Exam Neurological exam: Present: alert, oriented X3 - Skin Skin exam: Present: warm, dry, intact, normal color Course Vital Signs Temperature 98.0 F 08/24/18 01:26 Pulse Rate 81 10/22/17 01:26 Respiratory Rate 20 10/22/17 01:26 Blood Pressure 144/73 10/22/17 01:26 O2 Sat by Pulse Oximetry 98 10/22/17 01:26 Temperature 98.0 F 10/22/17 01:26 Pulse Rate 76 10/22/17 02:32 Respiratory Rate 18 10/22/17 02:32 Blood Pressure 147/59 10/22/17 02:32 O2 Sat by Pulse Oximetry 97 10/22/17 02:32 Oxygen Delivery Oxygen Delivery Room Air Dizziness - MDM Narrative Medical decision making narrative: Patient's workup in the emergency department demonstrates an acute kidney injury. In addition the patient was noted to have a therapeutic INR. Patient' s head CT, urinalysis, chest x-ray all demonstrate no acute process. The patient has been experiencing dizziness and given the patient's INR, I am concerned about the patient falling and striking his head. After conversation with the patient, we will admit the patient to the hospital with likely admission to a rehabilitation facility. Patient was made aware and agrees to plan. No further questions or concerns are noted at this time. Patient will be accepted by the hospitalist, Dr. Lua. - Lab Data Lab results reviewed: Yes I reviewed the patient's lab results. Result diagrams: 10/22/17 01:47 10/22/17 01:47 Lab Results 10/22/17 10/22/17 10/22/17 Range/Units 01:47 01:47 01:47 WBC 7.7 (4.3-11.1) K/mcL RBC 4.22 (4.19-5.50) M/mcL Hgb 14.5 (12.9-16.9) g/dL Hct 42.3 (37.5-50.1) % MCV 100.2 H (83.0-100.0) fL MCH 34.4 H (28.0-33.3) pg MCHC 34.3 (31.6-35.5) g/dL RDW 13.0 (11.5-14.5) % Plt Count 131 L (140-400) K/mcL MPV 10.9 (9.4-12.4) fL Immature Gran % 0.4 (0-4) % Seg Neutrophils % 63.4 % Lymphocytes % 22.1 % Monocytes % 10.1 % Eosinophils % 3.3 % Basophils % 0.7 % Neutrophils # 4.9 (1.6-8.9) K/mcL Lymphocytes # 1.7 (0.6-4.6) K/mcL Monocytes # 0.8 (0.0-1.3) K/mcL Eosinophils # 0.3 (0.0-0.6) K/mcL Basophils # 0.1 (0.0-0.2) K/mcL PT 33.2 H (9.4-12.1) Seconds INR 2.9 Sodium 139 (136-145) mEq/L Potassium 4.1 (3.5-5.1) mEq/L Chloride 100 (98-107) mEq/L Carbon Dioxide 31 H (23-29) mEq/L BUN 51 H (8-23) mg/dL Creatinine 1.82 H (0.70-1.30) mg/dL Est GFR ( Amer) 43 L (> 60) Est GFR (Non-Af Amer) 36 L (> 60) BUN/Creatinine Ratio 28 H (6-26) Glucose 150 H (70-105) mg/dL Calculated Osmolality 305 H (280-300) Calcium 10.2 (8.6-10.3) mg/dL Magnesium 2.0 (1.6-2.6) mg/dL Troponin I 0.03 (< 0.04) ng/mL B-Natriuretic Peptide (Less than 100) pg/mL Urine Color (Yellow) Urine Clarity (Clear) Urine pH (5.0-8.0) pH Units Ur Specific [place] (1.010-1.025) Urine Protein (Neg-Trace) mg/dL Urine Glucose (UA) (Normal) mg/dL Urine Ketones (Negative) mg/dL Urine Blood (Negative) Urine Nitrite (Negative) Urine Bilirubin (Negative) Urine Urobilinogen (Normal) mg/dL Ur Leukocyte Esterase (Negative) Ur Culture Indicated? (NO) 10/22/17 10/22/17 Range/Units 01:47 02:55 WBC (4.3-11.1) K/mcL RBC (4.19-5.50) M/mcL Hgb (12.9-16.9) g/dL Hct (37.5-50.1) % MCV (83.0-100.0) fL MCH (28.0-33.3) pg MCHC (31.6-35.5) g/dL RDW (11.5-14.5) % Plt Count (140-400) K/mcL MPV (9.4-12.4) fL Immature Gran % (0-4) % Seg Neutrophils % % Lymphocytes % % Monocytes % % Eosinophils % % Basophils % % Neutrophils # (1.6-8.9) K/mcL Lymphocytes # (0.6-4.6) K/mcL Monocytes # (0.0-1.3) K/mcL Eosinophils # (0.0-0.6) K/mcL Basophils # (0.0-0.2) K/mcL PT (9.4-12.1) Seconds INR Sodium (136-145) mEq/L Potassium (3.5-5.1) mEq/L Chloride (98-107) mEq/L Carbon Dioxide (23-29) mEq/L BUN (8-23) mg/dL Creatinine (0.70-1.30) mg/dL Est GFR ( Amer) (> 60) Est GFR (Non-Af Amer) (> 60) BUN/Creatinine Ratio (6-26) Glucose (70-105) mg/dL Calculated Osmolality (280-300) Calcium (8.6-10.3) mg/dL Magnesium (1.6-2.6) mg/dL Troponin I (< 0.04) ng/mL B-Natriuretic Peptide 114 H (Less than 100) pg/mL Urine Color Yellow (Yellow) Urine Clarity Clear (Clear) Urine pH 6.0 (5.0-8.0) pH Units Ur Specific [place] 1.017 (1.010-1.025) Urine Protein Negative (Neg-Trace) mg/dL Urine Glucose (UA) Normal (Normal) mg/dL Urine Ketones Negative (Negative) mg/dL Urine Blood Negative (Negative) Urine Nitrite Negative (Negative) Urine Bilirubin Negative (Negative) Urine Urobilinogen Normal (Normal) mg/dL Ur Leukocyte Esterase Negative (Negative) Ur Culture Indicated? NO (NO) - Radiology Data Radiology results reviewed: Yes I reviewed the patient's radiology results. Chest X-Ray 10/22/17 01:33 IMPRESSION: Stable chest. No acute disease. D/ / Dashawn Chiu MD / Dashawn Chiu MD Interpreting Provider: Dashawn Chiu MD Head CT 10/22/17 01:34 IMPRESSION: No acute intracranial abnormality. D/ / Ryan Vincent MD / Ryan Vincent MD Interpreting Provider: Ryan Vincent MD - EKG Data EKG attestation: Yes I reviewed and interpreted this EKG. EKG results narrative: Heart rate 87 BPM. Atrial fibrillation with PVCs. No ST elevation or depression. Overall similar to EKG from 09/17/17.
[2017-10-22 02:04] LABS: Basophils # 0.1 K/mcL (0.0-0.2); Basophils % 0.7 %; Eosinophils # 0.3 K/mcL (0.0-0.6); Eosinophils % 3.3 %; Hematocrit 42.3 % (37.5-50.1); Hemoglobin 14.5 g/dL (12.9-16.9); Immature Granulocytes % 0.4 % (0-4); Lymphocytes # 1.7 K/mcL (0.6-4.6); Lymphocytes % 22.1 %; Mean Corpuscular HGB Conc 34.3 g/dL (31.6-35.5); Mean Corpuscular Hemoglobin 34.4 pg (28.0-33.3); Mean Corpuscular Volume 100.2 fL (83.0-100.0); Mean Platelet Volume 10.9 fL (9.4-12.4); Monocytes # 0.8 K/mcL (0.0-1.3); Monocytes % 10.1 %; Neutrophils # 4.9 K/mcL (1.6-8.9); Platelet Count 131 K/mcL (140-400); Red Blood Count 4.22 M/mcL (4.19-5.50); Segmented Neutrophils % 63.4 %
[2017-10-22 02:06] LABS: INR 2.9; Prothrombin Time 33.2 Seconds (9.4-12.1)
[2017-10-22 02:21] LABS: Calcium 10.2 mg/dL (8.6-10.3); Potassium 4.1 mEq/L (3.5-5.1); Troponin I 0.03 ng/mL (< 0.04)
[2017-10-22 03:07] LABS: Bilirubin,Urine Negative (Negative); Blood,Urine Negative (Negative); Clarity,Urine Clear (Clear); Color,Urine Yellow (Yellow); Glucose,Urine (UA) Normal (Normal); Ketones,Urine Negative (Negative); Leukocyte Esterase,Urine Negative (Negative); Nitrite,Urine Negative (Negative); Protein,Urine Negative (Neg-Trace); Specific Gravity,Urine 1.017 (1.010-1.025); Urobilinogen,Urine Normal (Normal)
[2017-10-22] MEDS ORDERED: Acetaminophen 325 MG TABLET PO PRN (09:41)
[2017-10-22] MEDS ORDERED: Naloxone 0.4 MG/ML INJ IVP PRN (09:41)
--- NOTE | 2017-10-22 10:11 | Internal Med History&Physical ---
<Kendell Rawls R - Last Filed: 10/22/17 13:18> Date of Encounter: 10/22/17 Time of Encounter: 10:07 Internal Medicine - H&P: HPI Chief complaint: Weakness, Dizziness Admitted From: Emergency Dept History of present illness: Mr. Pond is a 87 year old male with hx of CHF, s/p TAVR 3 mo ago, DM, HTN , CKD 3, A. fib (on coumadin) who was admitted 10/22 with presyncope. On the night of admission patient got up from bed to urinate, and while at the toilet he developed lightheadedness, room spinning dizziness, shortness of breath. He got down on one knee, but did not actually fall or lose consciousness. No head trauma. ED note mentioned falls, but he states he has not prior history of falls. No dizziness with standing or urinating while here at the hospital. He is no longer having SOB or dizziness, and symptoms resolved prior to arrival. His LE edema is near his baseline. Drinks approx 3-4 bottles of water/day and does not spend time outside, but states his mouth is dry. Patient denies fevers , chills, headache, blurred vision, chest pain, palpitations, abdominal pain, N/ V/D, hematochezia, melena, dysuria, difficulty with urination, poor urine flow, post-void fullness, or focal weakness. Regarding the patients cardiac history, in June 2017 he had a syncopal episode while mowing his lawn. Echo at that time showed systolic HF (LVEF 55-60%), severe aortic stenosis. He had a stent placed. Also was noted to have Afib and was started on Warfarin. Patient then underwent TAVR approx 3 months ago. He has been feeling fatigued with dyspnea on exertion since June, and did not have much improvement following the TAVR. Denies orthopnea. Of note, patient had hemarthrosis of the left knee one month ago. The area was drained and he has had gradually improving left knee pain since then. He ambulates with a walker at home. Past Med Surg Social Fam HX - Past Medical History Medical history: CHF, diabetes, glaucoma, hypertension, RA, renal disease, valvular heart disease Additional medical history: MACULAR DEGENERATION. NEOPLASM OF VOCAL CORD. PALPITATIONS Psychiatric history: no psych history - Past Surgical History Surgical History: appendectomy, cholecystectomy Additional surgical history: CEREBRAL ABM EMBOLIZATION. EGD/COLONOSCOPY. Left carpal tunnel release - Social History Smoking Status: Former smoker Smokeless Tobacco Status: No Alcohol use: none Drug use: none - Family History Mother Living Status: (pancreatic cancer) Age at : 69 Cause of : cancer Father Living Status: (heart disease) Age at : 76 Cause of : heart related Internal Medicine - H&P: Meds Lisinopril-HCTZ 20-12.5 [Prinzide 20-12.5] 1 tab PO DAILY 12/11/15 [History] Omeprazole [PriLOSEC] 20 mg PO DAILY 12/11/15 [History] Furosemide [Lasix] 40 mg PO BID 08/09/16 [History] Montelukast [Singulair] 10 mg PO HS #30 tablet 08/11/16 [Rx] Magnesium Oxide [Magnesium] 400 mg PO TID 06/28/17 [History] Aspirin Enteric Coated [Aspirin EC] 81 mg PO DAILY #30 tablet. 07/01/17 [Rx] Clopidogrel [Plavix] 75 mg PO DAILY #30 tablet 07/01/17 [Rx] Warfarin Sodium [Coumadin] 6 mg PO TUTH 09/17/17 [History] Warfarin [Coumadin] 8.5 mg PO SUMOWEFRSA 09/17/17 [History] 3 Allergy/AdvReac Type Severity Reaction Status Date / Time Iodinated Contrast- Oral and Allergy Swelling Verified 10/22/17 09:53 IV Dye of Lip/Tongue/Throat All Systems PM: A 10-system review of systems was performed and is negative for pertinent findings except as documented above in the HPI. - Constitutional Vitals: Temp Pulse Resp BP Pulse Ox 98.0 F 86 22 122/66 96 10/22/17 07:11 10/22/17 07:11 10/22/17 07:11 10/22/17 07:11 10/22/17 07:11 Exam: Gen: Awake, alert, no distress HEENT: NC/AT. Slightly dry mucus membranes CV: Distant heart sounds, irregular rhythm, regular rate. 2+ PT and radial pulses. Resp: Decreased breath sounds, no wheezes or crackles Abd: soft, nontender, BS present Skin: no rashes Extremities: 1+ pitting edema distal lower extremities bilaterally Neuro: moving all extremities equally, no focal deficits or weakness Internal Med - H&P Results - Labs CBC & Chem 7: 10/22/17 01:47 10/22/17 01:47 - Assessment and plan (1) Near syncope Current Visit: Yes Status: Acute Assessment and plan: Patient became lightheaded and dizzy just after getting up to urinate, but did not lose consciousness or fall Likely vasovagal vs orthostatic from dehydration or atrial fibrillation. Currently not on anything for rate control Head CT negative - pt denies any falls Recent carotid ultrasound in Apr 2017 with minimal disease throughout TTE 06/29/17 (prior to TAVR): EF 55-60% with diastolic dysfunction, mild-moderate LVH, severe aortic stenosis, borderline pulmonary HTN EKG without acute changes. Initial troponin negative - Gentle IVF hydration, 75ml/hr for 1L total - Check orthostatic vitals - Continuous telemetry - Trend troponin - Repeat TTE - PT/OT consulted (2) Acute kidney injury superimposed on chronic kidney disease Current Visit: Yes Status: Acute Assessment and plan: Creatinine 1.8, up from baseline of 1.2-1.3 High serum osmolality plus BUN/Cr >20 suggests prerenal etiology Likely dehydration in combination with diuresis, appears dry on exam - Gentle IVF hydration, 75ml/hr for 1L total - Hold Lasix, SUSY, HCTZ today - likely will not restart HCTZ when improved d/t CKD 3 - Monitor for fluid overload (3) Fatigue Current Visit: Yes Status: Acute Assessment and plan: Likely multifactorial with CHF, A. fib, AV replacement There may also be some underlying depression contributing (d/t recent decline in health) - Check TTE, continuous telemetry - Check TSH Qualifiers: Fatigue type: chronic, unspecified Qualified Code(s): R53.82 - Chronic fatigue, unspecified (4) Diastolic heart failure Current Visit: Yes Status: Chronic Assessment and plan: Does not appear to be in acute exacerbation - no evidence of fluid overload, pt actually appears dry Echo in June showed EF 55-60, unknown echo results after TAVR Has LE edema at baseline. CXR without edema. Suspect HF is contributing to patients baseline fatigue and SOB with exertion On Lasix 40mg BID at home - Request records from [facility] - Repeat TTE - Rehab facility placement - Hold Lasix today - Add BB Qualifiers: Heart failure chronicity: chronic Qualified Code(s): I50.32 - Chronic diastolic (congestive) heart failure (5) HTN (hypertension) Current Visit: Yes Status: Chronic Assessment and plan: Normotensive With ITALO - hold SUSY, HCTZ, and Lasix for now Metoprolol 12.5 mg BID Qualifiers: Hypertension type: essential hypertension Qualified Code(s): I10 - Essential (primary) hypertension (6) A-fib Current Visit: Yes Status: Chronic Assessment and plan: Diagnosed June 2017, currently regular rate without rate control On warfarin with therapeutic INR - Add BB, continuous telemetry Qualifiers: Atrial fibrillation type: unspecified Qualified Code(s): I48.91 - Unspecified atrial fibrillation (7) Diabetes Current Visit: Yes Status: Chronic Assessment and plan: Diet controlled, sugars usually ~130 in morning at home - Diabetic diet - Check A1c (last was 3 months ago 7.0%) - SSI if needed Qualifiers: Diabetes mellitus type: type 2 Diabetes mellitus intermediate accountant insulin use: without intermediate accountant use Diabetes mellitus complication status: without complication Qualified Code(s): E11.9 - Type 2 diabetes mellitus without complications (8) CAD (coronary artery disease) Current Visit: Yes Status: Acute Assessment and plan: s/p PCI to LAD in June 2017. Has some narrowing in RCA that was not stented No chest pain currently. EKG negative for ischemia. Monitor for ACS with change in symptoms - Trend troponin - Continue Plavix Qualifiers: Coronary Disease-Associated Artery/Lesion type: [place] artery [place] vs. transplanted heart: [place] heart Associated angina: without angina Qualified Code(s): I25.10 - Atherosclerotic heart disease of [place] coronary artery without angina pectoris (9) S/P aortic valve replacement Current Visit: No Status: Acute (10) DVT prophylaxis Current Visit: Yes Status: Acute Assessment and plan: Continue Coumadin - Time Spent With Patient Total time spent is greater than 50% in coordination of care (as documented) at patient's floor/unit and/or counseling patient: <Panfilo Hyde - Last Filed: 10/22/17 17:47> Date of Encounter: 10/22/17 Internal Medicine - H&P: HPI History of present illness: Mr. Pond is a 87 year old male All Systems PM: A 10-system review of systems was performed and is negative for pertinent findings except as documented above in the HPI. - Constitutional Vitals: Temp Pulse Resp BP Pulse Ox 97.8 F 79 20 119/61 94 10/22/17 16:34 10/22/17 16:34 10/22/17 16:34 10/22/17 16:34 10/22/17 16:34 Internal Med - H&P Results - Labs CBC & Chem 7: 10/22/17 01:47 10/22/17 01:47 Labs: Cardiac Enzymes 10/22/17 Range/Units 12:55 Troponin I < 0.03 (< 0.04) ng/mL - Time Spent With Patient Total time spent is greater than 50% in coordination of care (as documented) at patient's floor/unit and/or counseling patient: - Attending Attestation I examined this patient and my medical decision-making was reviewed with the Resident Physician Dr. Rawls. I agree with the documented findings, disposition and treatment plan as described except to the extent set forth below. Mr. Pond is a 87 year old male with hx of CHF, s/p TAVR 3 mo ago, DM, HTN , CKD 3, A. fib (on Coumadin) who was admitted 10/22 with presyncope. He denied an CP / SOB. he denied any loss of consciousness. Feels weak and lethargic. Gen: A, A, O x 3 Chest: Diminished BS b/l Heart: S1S2+ RRR 2/6 ESM Ext: No edema a/p 1. Acute near syncope Mostly ortho static and dehydration need to r/o ACS vs Ar[place]th[place]ias on tele check serial trop IV hydration hold Lasix will check 2 D Echo
[2017-10-22] MEDS: Magnesium Oxide 400 MG TABLET PO SCH ×3 (12:02→20:11)
[2017-10-22] MEDS: Aspirin Enteric Coated 81 MG Tablet PO SCH (12:02)
[2017-10-22] MEDS ORDERED: 0.9 % Sodium Chloride 1,000 ML IVC SCH (12:45)
[2017-10-22] MEDS ORDERED: Warfarin perPT PO PRN (18:00)
[2017-10-22] MEDS ORDERED: WARFARIN PO ONE (18:00)
[2017-10-22] MEDS ORDERED: Perflutren Lipid Microsphere 1.3 ML in 0.9 % Sodium Chloride 8.7 ML IVP ONE ×2 (18:35→21:49)
[2017-10-23 04:14] LABS: Basophils % 0.5 %; Eosinophils # 0.2 K/mcL (0.0-0.6); Eosinophils % 4.2 %; Hematocrit 37.3 % (37.5-50.1); Immature Granulocytes % 0.2 % (0-4); Lymphocytes # 1.2 K/mcL (0.6-4.6); Mean Corpuscular Hemoglobin 33.6 pg (28.0-33.3); Mean Corpuscular Volume 98.7 fL (83.0-100.0); Mean Platelet Volume 11.2 fL (9.4-12.4); Monocytes # 0.6 K/mcL (0.0-1.3); Monocytes % 10.1 %; Neutrophils # 3.7 K/mcL (1.6-8.9); Platelet Count 113 K/mcL (140-400); Red Blood Count 3.78 M/mcL (4.19-5.50); Red Cell Distribution Width 12.9 % (11.5-14.5)
[2017-10-23 04:23] LABS: Prothrombin Time 33.6 Seconds (9.4-12.1)
[2017-10-23 04:28] LABS: Hemoglobin 12.7 g/dL (12.9-16.9)
[2017-10-23 04:37] LABS: Calcium 9.2 mg/dL (8.6-10.3); Potassium 4.1 mEq/L (3.5-5.1)
[2017-10-23 04:51] LABS: Thyroid Stimulating Hormone 2.14 mcIU/mL (0.340-5.600)
--- NOTE | 2017-10-23 08:40 | Discharge Summary ---
<Kendell Rawls R - Last Filed: 10/23/17 12:34> - NOTES TO OUTPATIENT PROVIDER Notes to Outpatient Provider: Stopping HCTZ as this could be contributing to ITALO , dehydration, and episode of dizziness. Decrease increasing Lasix to once daily. Starting metoprolol 12.5 mg BID. Pt would benefit from cardiac rehab. Pt also reports some tearful episodes but denies depression - it may be good to continue monitoring his mood if depression is playing a role in his fatigue. Date of Encounter: 10/23/17 Time of Encounter: 08:37 - Discharge Diagnosis (1) Near syncope Priority: Primary Status: Acute (2) Acute kidney injury superimposed on chronic kidney disease Priority: Secondary Status: Acute (3) Fatigue Priority: Secondary Status: Acute Qualifiers: Fatigue type: chronic, unspecified Qualified Code(s): R53.82 - Chronic fatigue, unspecified (4) Diastolic heart failure Priority: Secondary Status: Chronic Qualifiers: Heart failure chronicity: chronic Qualified Code(s): I50.32 - Chronic diastolic (congestive) heart failure (5) HTN (hypertension) Priority: Secondary Status: Chronic Qualifiers: Hypertension type: essential hypertension Qualified Code(s): I10 - Essential (primary) hypertension (6) A-fib Priority: Secondary Status: Chronic Qualifiers: Atrial fibrillation type: unspecified Qualified Code(s): I48.91 - Unspecified atrial fibrillation (7) Diabetes Priority: Secondary Status: Chronic Qualifiers: Diabetes mellitus type: type 2 Diabetes mellitus nursing home insulin use: without nursing home use Diabetes mellitus complication status: without complication Qualified Code(s): E11.9 - Type 2 diabetes mellitus without complications (8) CAD (coronary artery disease) Priority: Secondary Status: Chronic Qualifiers: Coronary Disease-Associated Artery/Lesion type: [place] artery [place] vs. transplanted heart: [place] heart Associated angina: without angina Qualified Code(s): I25.10 - Atherosclerotic heart disease of [place] coronary artery without angina pectoris (9) S/P aortic valve replacement Priority: Secondary Status: Acute (10) DVT prophylaxis Priority: Secondary Status: Acute Hospital course: Mr. Pond is a 87 year old male with PMH of CHF, s/p TAVR 3 mo ago, DM, HTN , CKD 3, A. fib (on coumadin) who was admitted 10/22 with an episode of near syncope while using the restroom. His symptoms resolved after he was able to kneel down and rest. He denies any falls or hitting his head. Head CT was negative for any acute abnormality. He was also complaining of some chronic dyspnea with exertion and fatigue, that has been ongoing since his valve replacement. In the initial ED workup is noted to have an ITALO with creatinine 1.84. He was given some gentle IV hydration, and Lasix, lisinopril, hydrochlorothiazide were all held during his admission. ITALO is consistent with prerenal etiology, likely secondary to dehydration in combination with diuretic use. His creatinine is improving today 1.48. HCTZ will be stopped upon discharge. Lasix decreased to 40 mg once daily. Metoprolol was added for blood pressure, rate control, and cardiac remodeling. He was evaluated by PT/OT for his dizziness and generalized weakness, but they found that he does not need any rehabilitation at this time. He no longer had any dizziness during his admission. EKG showed A. fib with no ischemic changes. Troponins 3 were negative. UA was negative. Telemetry showed no rapid ventricular response. TTE 06/29/17 (prior to TAVR): EF 55-60% with diastolic dysfunction, mild-moderate LVH, severe aortic stenosis, borderline pulmonary HTN. Repeat TTE results pending. Pt is hemodynamically stable and will be ready for discharge pending final echo results in no changes. Discharge discussed with: patient - Time Spent with Patient Total time spent providing and/or coordinating discharge services: Greater than 30 minutes - Discharge Medications Prescriptions: Lisinopril [Zestril] 20 mg PO DAILY #30 tablet Metoprolol [Lopressor] 12.5 mg PO BID #60 tablet Home Medications: Omeprazole [PriLOSEC] 20 mg PO DAILY 12/11/15 [History] Montelukast [Singulair] 10 mg PO HS #30 tablet 08/11/16 [Rx] Magnesium Oxide [Magnesium] 400 mg PO TID 06/28/17 [History] Aspirin Enteric Coated [Aspirin EC] 81 mg PO DAILY #30 tablet. 07/01/17 [Rx] Clopidogrel [Plavix] 75 mg PO DAILY #30 tablet 07/01/17 [Rx] Warfarin Sodium [Coumadin] 6 mg PO [facility] 09/17/17 [History] Warfarin [Coumadin] 8.5 mg PO SUMOWEFRSA 09/17/17 [History] Furosemide [Lasix] 40 mg PO DAILY 30 Days 10/23/17 [Rx] Lisinopril [Zestril] 20 mg PO DAILY #30 tablet 10/23/17 [Rx] Metoprolol [Lopressor] 12.5 mg PO BID #60 tablet 10/23/17 [Rx] Allergies/Adverse Reactions: 3 Allergy/AdvReac Type Severity Reaction Status Date / Time Iodinated Contrast- Oral and Allergy Swelling Verified 10/22/17 09:53 IV Dye of Lip/Tongue/Throat Date of admission: 10/22/17 03:58 Primary care physician: Pranav Whitfield MD Consults: 10/22/17 09:43 Consult to Physical Therapy [CONS] Routine Comment: Evaluate, develop and implement POC Reason for Consult: Generalized weakness, dizziness last night at home. Dizziness has resolved now. Does patient have active BEDREST order?: No Is patient medically & hemodynamically stable?: Yes Consult to Tube Laser Operator [CONS] Routine Reason for SW Consult: Pt from home, admitted with ITALO and generalized weakness. Possible rehab upon discharge pending PT/OT recommendations Discharging clinician: Kendell Rawls Anticipated date of discharge: 10/23/17 - Constitutional Vitals: Temp Pulse Resp BP Pulse Ox 98.2 F 68 16 127/73 94 10/23/17 07:57 10/23/17 07:57 10/23/17 07:57 10/23/17 07:57 10/23/17 07:57 General appearance: Present: A&O X 3, no acute distress, answers questions appropriately Exam: GEN: No acute distress, A&O3 HEAD: Atraumatic, normocephalic EYES: Pupils symmetric, sclera white, conjunctiva pink HEART: Irregularly irregular, no murmurs LUNGS: Clear to auscultation bilaterally, no wheezes, rhonchi, or crackles ABD: Soft, nontender, nondistended, bowel sounds present EXT: Mild bilateral edema noted, pulses 2/4 NEURO: No focal deficits, cooperative with exam - Patient Status Disposition: Home, Self-Care Condition: Fair Functional capacity at discharge: uses cane/walker Overall status at discharge: patient is progressing back to baseline - Discharge Instructions Follow Up With: Pranav Whitfield MD [Primary Care Provider] - Kendell Rawls DO [Partnered Physician] - Additional Instructions: Stop the lisinopril/HCTZ pill Continue taking lisinopril 20 mg daily Start taking metoprolol 12.5 mg twice daily Decrease Lasix to 40 mg once daily Please establish with cardiac rehabilitation Please follow-up in the [facility] clinic - Diet and Activity Activity: ambulate only with your walker, as per the cardiac rehab, increase activity as tolerated Diet: diabetic diet <Panfilo Hyde - Last Filed: 10/23/17 15:07> Date of Encounter: 10/23/17 Hospital course: Mr. Pond is a 87 year old male - Time Spent with Patient Total time spent providing and/or coordinating discharge services: Date of admission: 10/22/17 03:58 Primary care physician: Pranav Whitfield MD Consults: 10/22/17 09:43 Consult to Physical Therapy [CONS] Routine Comment: Evaluate, develop and implement POC Reason for Consult: Generalized weakness, dizziness last night at home. Dizziness has resolved now. Does patient have active BEDREST order?: No Is patient medically & hemodynamically stable?: Yes Consult to Tube Laser Operator [CONS] Routine Reason for SW Consult: Pt from home, admitted with ITALO and generalized weakness. Possible rehab upon discharge pending PT/OT recommendations - Constitutional Vitals: Temp Pulse Resp BP Pulse Ox 97.6 F 63 16 119/70 96 10/23/17 11:47 10/23/17 11:47 10/23/17 11:47 10/23/17 11:47 10/23/17 11:47 - Attending Attestation I examined this patient and my medical decision-making was reviewed with the Resident Physician Dr. Rawls. I agree with the documented findings, disposition and treatment plan as described except to the extent set forth below. Mr. Pond is a 87 year old male with hx of CHF, s/p TAVR 3 mo ago, DM, HTN , CKD 3, A. fib (on Coumadin) who was admitted 10/22 with presyncope. He denied an CP / SOB. he denied any loss of consciousness. No more syncopal episodes. Denied any CP Gen: A, A, O x 3 Chest: Diminished BS b/l Heart: S1S2+ RRR 2/6 ESM Ext: No edema a/p 1. Acute near syncope 2. chronic diastolic CHF Mostly ortho static and dehydration serial trop - negative Echo showed preserved LVEF, diastolic dysfunction recommend to cut down on Lasix also d/c HCTZ
--- NOTE | 2017-10-23 09:21 | Electrocardiograph Report ---
[address] [place], [place] [address] Test Date: 2017-10-22 Pat Name: Wood Pond Department: [id number] Room: 3B11 Gender: M Rotary Shear Operator: : [id number] Requested By: Moses Jenkins Order Number: [id number] Reading MD: Octavio Austin Measurements Intervals [place] Rate: 87 P: [place]: QRS: -51 QRSD: 120 T: 95 QT: 394 QTc: 474 Interpretive Statements Atrial fibrillation Ventricular premature complexes Nonspecific IVCD Left axis deviation Anterior and inferior myocardial infarction, age undetermined Electronically Signed On 10-23-2017 9:20:19 EDT by Octavio Austin
[2017-10-23] MEDS: Magnesium Oxide 400 MG TABLET PO SCH (09:30)
[2017-10-23] MEDS: Aspirin Enteric Coated 81 MG Tablet PO SCH (09:31)
[2017-10-23 11:48] VITALS: BP 119/70
[2017-10-23 13:14] LABS: Estimated Average Glucose 177 mg/dl; Hemoglobin A1C 7.8 %
== END 2017-10-23 13:15 | disposition home or self-care (01) ==
LOC: EMEROOARM 01:25 → 3BNU 01:25
PROVIDERS: ADMIT Pediatrics; ATTEND Pediatrics

== ENCOUNTER 2018-01-28 02:45 | Observation (INO) ==
--- NOTE | 2018-01-28 04:16 | Emergency Department Note ---
Disposition Clinical Impression: ITALO (acute kidney injury), Muscle spasm of both lower legs Disposition: Still a Patient Condition: Fair Referrals: Kendell Rawls DO [Primary Care Provider] - Forms: ED Satisfaction Letter, Work/School Release Time of Disposition: 06:00 General Adult HPI - General Chief complaint: ED General Medical Stated complaint: leg/hand cramps Time Seen by Provider: 01/28/18 03:33 Source: patient, family Mode of arrival: ambulatory Limitations: no limitations Nursing Notes Reviewed: Yes Vital Signs Reviewed: Yes - History of Present Illness HPI Narrative: Alert and oriented nontoxic-appearing 87-year-old male presents for evaluation of "cramping of my hands, legs, and feet". Symptoms began 2 days ago. He denies any vomiting or diarrhea aside from several bowel movements after taking a laxative yesterday morning. He denies any associated fever, chills, nausea, chest pain, shortness of breath. He denies any worsening of his pedal or pretibial edema. He does state that he is on 80 mg of Lasix by mouth in the morning as well as 40 mg of Lasix by mouth in the evening. Onset (ago): day(s) (2) Location: left, right, upper extremity, lower extremity Pain Scale: 8 Quality: aching Consistency: intermittent Improves with: nothing Worsens with: nothing Associated symptoms: Denies: chest pain, cough, diaphoresis, nausea/vomiting, shortness of breath, weakness - Related Data Home Medications Medication Instructions Recorded Confirmed Omeprazole [PriLOSEC] 20 mg PO DAILY 12/11/15 11/11/17 Magnesium Oxide [Magnesium] 400 mg PO TID 06/28/17 11/11/17 Warfarin Sodium [Coumadin] 6 mg PO TUTH 09/17/17 11/11/17 Warfarin [Coumadin] 8 mg PO SUMOWEFRSA 09/17/17 11/11/17 Cholecalciferol (Vitamin D3) 1,000 unit PO DAILY 11/11/17 11/11/17 [Vitamin D] Multivit-Min/FA/Lycopen/Lutein 1 each PO DAILY 11/11/17 11/11/17 [Men 50 Plus Multivitamin Tab] [place]-3/Dha/Epa/Fish Oil [Fish Oil 1 each PO DAILY 11/11/17 11/11/17 1,000 mg Softgel] Vit B Complex/Min/Hops/Berb Cl [EC 1 each PO DAILY 11/11/17 11/11/17 Matrixx Tablet] Furosemide [Lasix] 80 mg PO QAM 01/13/18 01/13/18 Lasix 40 mg PO QPM 01/13/18 01/13/18 Previous Rx's Medication Instructions Recorded Montelukast [Singulair] 10 mg PO HS #30 tablet 08/11/16 Aspirin Enteric Coated [Aspirin EC] 81 mg PO DAILY #30 tablet. 07/01/17 Clopidogrel [Plavix] 75 mg PO DAILY #30 tablet 07/01/17 Lisinopril [Zestril] 20 mg PO DAILY #30 tablet 10/23/17 Metoprolol [Lopressor] 12.5 mg PO BID #60 tablet 10/23/17 Allergies Allergy/AdvReac Type Severity Reaction Status Date / Time Iodinated Contrast- Oral and Allergy Swelling Verified 10/22/17 09:53 IV Dye of Lip/Tongue/Throat All systems ED: reviewed and negative except as stated. Review of Systems: As Per HPI Constitutional: Denies: fever, chills, weakness, weight change Eyes: Denies: eye pain, eye discharge, vision change ENT ED: Denies: ear pain, throat pain, dental pain, hearing loss, epistaxis, congestion, dysphagia Cardiovascular: Denies: chest pain, palpitations, dyspnea on exertion, edema, syncope Respiratory: Denies: cough, dyspnea, wheezes, hemoptysis, stridor Gastrointestinal: Denies: abdominal pain, nausea, vomiting, diarrhea, constipation, hematemesis, melena, hematochezia Genitourinary: Denies: urgency, dysuria, frequency, hematuria Musculoskeletal: Reports: as per HPI, other ("Muscle cramps"). Denies: back pain, neck pain, arthralgia, myalgia Integumentary: Denies: rash, abrasion, lesions Neurological: Denies: headache, weakness, numbness, paresthesias, confusion, abnormal gait, vertigo Psychiatric: Denies: anxiety, depression, suicidal thoughts, homicidal thoughts, auditory hallucinations, visual hallucinations Endocrine: Denies: fatigue Hematological/Lymphatic: Denies: easy bleeding, easy bruising Allergic/Immunologic: Denies: facial swelling, urticaria Past Medical History - Past Medical History Attestation: Yes The following information was validated with the patient. Source: patient, nursing notes reviewed Medical history: Reports: arthritis, atrial fibrillation, cancer, CHF, coronary artery disease, GERD, glaucoma, hyperlipidemia, hypertension, renal disease, syncope, valvular heart disease, other Surgical history: Reports: appendectomy, cholecystectomy Psychiatric history: Reports: no psych history - Social History Smoking Status: Former smoker Smokeless Tobacco Status: No Alcohol use: Reports: none Drug use: Reports: none Physical Exam - General Limitations: no limitations General appearance: alert, in no apparent distress - Head Head exam: atraumatic, normocephalic, normal inspection - Eye Eye exam: Present: normal appearance, PERRL, EOMI. Absent: nystagmus - ENT ENT exam: mucous membranes moist - Neck Neck exam: Present: normal inspection, full ROM, trachea midline - Chest Chest inspection: Present: normal inspection, symmetric chest wall rise - Respiratory Respiratory exam: Present: normal lung sounds bilaterally. Absent: respiratory distress, wheezes, stridor, accessory muscle use, prolonged expiratory phase - Cardiovascular Cardiovascular exam: Present: regular rate, normal rhythm, normal heart sounds - Abdominal Exam Abdominal exam: Present: soft, Non-Tender, normal bowel sounds. Absent: distention, guarding, rebound, rigidity - Extremities Exam Extremities exam: Present: pedal edema (3+ pretibial edema noted left lower extremity (patient states is at baseline), 2+ pretibial edema noted right lower extremity.). Absent: tenderness - Neurological Exam Neurological exam: Present: alert, oriented X3 - Psychiatric Psychiatric exam: Present: normal affect, normal mood - Skin Skin exam: Present: warm, dry, intact, normal color. Absent: rash Course Vital Signs Temperature 97.7 F 01/28/18 02:49 Pulse Rate 70 01/28/18 02:49 Respiratory Rate 16 01/28/18 02:49 Blood Pressure 134/64 01/28/18 02:49 O2 Sat by Pulse Oximetry 98 01/28/18 02:49 Temperature 97.7 F 01/28/18 02:49 Pulse Rate 61 01/28/18 05:48 Respiratory Rate 18 01/28/18 05:48 Blood Pressure 139/86 01/28/18 05:48 O2 Sat by Pulse Oximetry 99 01/28/18 05:48 Oxygen Delivery Oxygen Delivery Room Air Medical Decision Making - MDM Narrative Medical decision making narrative: 0550: The patient's electrolytes are all within normal limits. Laboratory results do show a mild acute kidney injury with a creatinine of 1.73 compared to 1.48 on January 17. BUN is slightly elevated at 51 compared to 33 on 01/17. GFR is decreased to 38 when compared to 45 on January 17. He is now disclosed that he has been experiencing a mild global headache for the past 2 days. He denies any injury or trauma. He denies any visual disturbances. He denies any nausea or vomiting. He denies any dizziness or syncope. We will gently hydrate the patient with IV fluid given his history of congestive heart failure. Oral analgesia will be given as well. Patient will be reassessed and disposition to be determined by the oncoming provider, Coy Anderson as care of this patient will be transferred to her due to mid-level shift change. - Medical Records Medical records reviewed: Yes I reviewed the patient's medical records. - Lab Data Lab results reviewed: Yes I reviewed the patient's lab results. Lab results narrative: Lab Results 01/28/18 01/28/18 01/28/18 Range/Units 04:22 04:22 04:33 WBC 9.4 (4.3-11.1) K/mcL RBC 4.15 L (4.19-5.50) M/mcL Hgb 14.4 (12.9-16.9) g/dL Hct 42.6 (37.5-50.1) % MCV 102.7 H (83.0-100.0) fL MCH 34.7 H (28.0-33.3) pg MCHC 33.8 (31.6-35.5) g/dL RDW 13.0 (11.5-14.5) % Plt Count 121 L (140-400) K/mcL MPV 11.0 (9.4-12.4) fL Immature Gran % 0.9 (0-4) % Seg Neutrophils % 70.2 % Lymphocytes % 18.7 % Monocytes % 7.4 % Eosinophils % 2.5 % Basophils % 0.3 % Neutrophils # 6.6 (1.6-8.9) K/mcL Lymphocytes # 1.8 (0.6-4.6) K/mcL Monocytes # 0.7 (0.0-1.3) K/mcL Eosinophils # 0.2 (0.0-0.6) K/mcL Basophils # 0.0 (0.0-0.2) K/mcL Sodium 138 (136-145) mEq/L Potassium 4.2 (3.5-5.1) mEq/L Chloride 101 (98-107) mEq/L Carbon Dioxide 29 (23-29) mEq/L BUN 51 H (8-23) mg/dL Creatinine 1.73 H (0.70-1.30) mg/dL Est GFR ( Amer) 46 L (> 60) Est GFR (Non-Af Amer) 38 L (> 60) BUN/Creatinine Ratio 29 H (6-26) Glucose 143 H (70-105) mg/dL Calculated Osmolality 302 H (280-300) Uric Acid 12.1 H (2.3-7.6) mg/dL Calcium 9.3 (8.6-10.3) mg/dL Phosphorus 3.5 (2.7-4.5) mg/dL Magnesium 2.2 (1.6-2.6) mg/dL Creatine Kinase 68 (30-223) Units/L Urine Color Yellow (Yellow) Urine Clarity Clear (Clear) Urine pH 6.0 (5.0-8.0) pH Units Ur Specific [place] 1.012 (1.010-1.025) Urine Protein Negative (Neg-Trace) mg/dL Urine Glucose (UA) Normal (Normal) mg/dL Urine Ketones Negative (Negative) mg/dL Urine Blood Negative (Negative) Urine Nitrite Negative (Negative) Urine Bilirubin Negative (Negative) Urine Urobilinogen Normal (Normal) mg/dL Ur Leukocyte Esterase Negative (Negative) Ur Culture Indicated? NO (NO) Result diagrams: 01/28/18 04:22 01/28/18 04:22 Lab Results 01/28/18 01/28/18 01/28/18 Range/Units 04:22 04:22 04:33 WBC 9.4 (4.3-11.1) K/mcL RBC 4.15 L (4.19-5.50) M/mcL Hgb 14.4 (12.9-16.9) g/dL Hct 42.6 (37.5-50.1) % MCV 102.7 H (83.0-100.0) fL MCH 34.7 H (28.0-33.3) pg MCHC 33.8 (31.6-35.5) g/dL RDW 13.0 (11.5-14.5) % Plt Count 121 L (140-400) K/mcL MPV 11.0 (9.4-12.4) fL Immature Gran % 0.9 (0-4) % Seg Neutrophils % 70.2 % Lymphocytes % 18.7 % Monocytes % 7.4 % Eosinophils % 2.5 % Basophils % 0.3 % Neutrophils # 6.6 (1.6-8.9) K/mcL Lymphocytes # 1.8 (0.6-4.6) K/mcL Monocytes # 0.7 (0.0-1.3) K/mcL Eosinophils # 0.2 (0.0-0.6) K/mcL Basophils # 0.0 (0.0-0.2) K/mcL Sodium 138 (136-145) mEq/L Potassium 4.2 (3.5-5.1) mEq/L Chloride 101 (98-107) mEq/L Carbon Dioxide 29 (23-29) mEq/L BUN 51 H (8-23) mg/dL Creatinine 1.73 H (0.70-1.30) mg/dL Est GFR ( Amer) 46 L (> 60) Est GFR (Non-Af Amer) 38 L (> 60) BUN/Creatinine Ratio 29 H (6-26) Glucose 143 H (70-105) mg/dL Calculated Osmolality 302 H (280-300) Uric Acid 12.1 H (2.3-7.6) mg/dL Calcium 9.3 (8.6-10.3) mg/dL Phosphorus 3.5 (2.7-4.5) mg/dL Magnesium 2.2 (1.6-2.6) mg/dL Creatine Kinase 68 (30-223) Units/L Urine Color Yellow (Yellow) Urine Clarity Clear (Clear) Urine pH 6.0 (5.0-8.0) pH Units Ur Specific [place] 1.012 (1.010-1.025) Urine Protein Negative (Neg-Trace) mg/dL Urine Glucose (UA) Normal (Normal) mg/dL Urine Ketones Negative (Negative) mg/dL Urine Blood Negative (Negative) Urine Nitrite Negative (Negative) Urine Bilirubin Negative (Negative) Urine Urobilinogen Normal (Normal) mg/dL Ur Leukocyte Esterase Negative (Negative) Ur Culture Indicated? NO (NO) - Radiology Data Radiology results reviewed: Yes I reviewed the patient's radiology results. - EKG Data EKG #1 EKG attestation: Yes I reviewed and interpreted this EKG. EKG results narrative: EKG reviewed by Dr. Anibal Stevens as well. EKG shows atrial fibrillation at a rate of 66 bpm. QRS duration 122, QT/QTc interval 433/454. No ST elevation noted. No significant changes in morphology from an EKG dated 10/22/17. [facility]. - [facility] Situation: Demographics, MOA Background: Presenting Complaint, Relevant PMH, Meds, & Allergies Assessment: Vital Signs, Course and respsone to treatment, Exam Concerns, Patient/Family Expectation, Pertinant Lab Results, Outstanding Labs Recommendation: Barrier(s) to disposition, Recommendation based on pending studies, treatments, or consults S.B.A.R. Report Given to: Coy CasperBRenettaACathryn Repor Time: 06:00
[2018-01-28 04:45] LABS: Basophils % 0.3 %; Eosinophils # 0.2 K/mcL (0.0-0.6); Eosinophils % 2.5 %; Hematocrit 42.6 % (37.5-50.1); Hemoglobin 14.4 g/dL (12.9-16.9); Immature Granulocytes % 0.9 % (0-4); Lymphocytes # 1.8 K/mcL (0.6-4.6); Lymphocytes % 18.7 %; Mean Corpuscular HGB Conc 33.8 g/dL (31.6-35.5); Mean Corpuscular Hemoglobin 34.7 pg (28.0-33.3); Mean Corpuscular Volume 102.7 fL (83.0-100.0); Monocytes # 0.7 K/mcL (0.0-1.3); Monocytes % 7.4 %; Neutrophils # 6.6 K/mcL (1.6-8.9); Platelet Count 121 K/mcL (140-400); Red Blood Count 4.15 M/mcL (4.19-5.50); Segmented Neutrophils % 70.2 %
[2018-01-28 04:50] LABS: Bilirubin,Urine Negative (Negative); Blood,Urine Negative (Negative); Clarity,Urine Clear (Clear); Color,Urine Yellow (Yellow); Glucose,Urine (UA) Normal (Normal); Ketones,Urine Negative (Negative); Leukocyte Esterase,Urine Negative (Negative); Nitrite,Urine Negative (Negative); Protein,Urine Negative (Neg-Trace); Specific Gravity,Urine 1.012 (1.010-1.025); Urobilinogen,Urine Normal (Normal)
[2018-01-28 05:10] LABS: Calcium 9.3 mg/dL (8.6-10.3); Magnesium 2.2 mg/dL (1.6-2.6); Phosphorous 3.5 mg/dL (2.7-4.5); Potassium 4.2 mEq/L (3.5-5.1); Uric Acid 12.1 mg/dL (2.3-7.6)
[2018-01-28] MEDS ORDERED: 0.9 % Sodium Chloride 500 ML IVC ONE (05:29)
[2018-01-28] MEDS ORDERED: *HR* HYDROcodone/Acet 5/325 mg TABLET PO ONE (05:29)
--- NOTE | 2018-01-28 07:36 | Emergency Department Note ---
Disposition Clinical Impression: ITALO (acute kidney injury), Muscle spasm of both lower legs Disposition: Still a Patient Condition: Fair Referrals: Kendell Rawls DO [Primary Care Provider] - Forms: ED Satisfaction Letter, Work/School Release General Adult HPI - General Chief complaint: ED General Medical Stated complaint: leg/hand cramps Time Seen by Provider: 01/28/18 03:33 Source: patient, family Mode of arrival: ambulatory Limitations: no limitations Nursing Notes Reviewed: Yes Vital Signs Reviewed: Yes - History of Present Illness Location: left, right, upper extremity, lower extremity Pain Scale: 8 Quality: aching Improves with: nothing Worsens with: nothing Associated symptoms: Denies: chest pain, cough, diaphoresis, nausea/vomiting, shortness of breath, weakness - Related Data Home Medications Medication Instructions Recorded Confirmed Omeprazole [PriLOSEC] 20 mg PO DAILY 12/11/15 11/11/17 Magnesium Oxide [Magnesium] 400 mg PO TID 06/28/17 11/11/17 Warfarin Sodium [Coumadin] 6 mg PO TUTH 09/17/17 11/11/17 Warfarin [Coumadin] 8 mg PO SUMOWEFRSA 09/17/17 11/11/17 Cholecalciferol (Vitamin D3) 1,000 unit PO DAILY 11/11/17 11/11/17 [Vitamin D] Multivit-Min/FA/Lycopen/Lutein 1 each PO DAILY 11/11/17 11/11/17 [Men 50 Plus Multivitamin Tab] [place]-3/Dha/Epa/Fish Oil [Fish Oil 1 each PO DAILY 11/11/17 11/11/17 1,000 mg Softgel] Vit B Complex/Min/Hops/Berb Cl [EC 1 each PO DAILY 11/11/17 11/11/17 Matrixx Tablet] Furosemide [Lasix] 80 mg PO QAM 01/13/18 01/13/18 Lasix 40 mg PO QPM 01/13/18 01/13/18 Previous Rx's Medication Instructions Recorded Montelukast [Singulair] 10 mg PO HS #30 tablet 08/11/16 Aspirin Enteric Coated [Aspirin EC] 81 mg PO DAILY #30 tablet. 07/01/17 Clopidogrel [Plavix] 75 mg PO DAILY #30 tablet 07/01/17 Lisinopril [Zestril] 20 mg PO DAILY #30 tablet 10/23/17 Metoprolol [Lopressor] 12.5 mg PO BID #60 tablet 10/23/17 Allergies Allergy/AdvReac Type Severity Reaction Status Date / Time Iodinated Contrast- Oral and Allergy Swelling Verified 10/22/17 09:53 IV Dye of Lip/Tongue/Throat Constitutional: Denies: fever, chills, weakness, weight change Eyes: Denies: eye pain, eye discharge, vision change ENT ED: Denies: ear pain, throat pain, dental pain, hearing loss, epistaxis, congestion, dysphagia Cardiovascular: Denies: chest pain, palpitations, dyspnea on exertion, edema, syncope Respiratory: Denies: cough, dyspnea, wheezes, hemoptysis, stridor Gastrointestinal: Denies: abdominal pain, nausea, vomiting, diarrhea, constipation, hematemesis, melena, hematochezia Genitourinary: Denies: urgency, dysuria, frequency, hematuria Musculoskeletal: Reports: as per HPI, other ("Muscle cramps"). Denies: back pain, neck pain, arthralgia, myalgia Integumentary: Denies: rash, abrasion, lesions Neurological: Denies: headache, weakness, numbness, paresthesias, confusion, abn ormal gait, vertigo Psychiatric: Denies: anxiety, depression, suicidal thoughts, homicidal thoughts, auditory hallucinations, visual hallucinations Endocrine: Denies: fatigue Hematological/Lymphatic: Denies: easy bleeding, easy bruising Allergic/Immunologic: Denies: facial swelling, urticaria Past Medical History - Past Medical History Medical history: Reports: arthritis, atrial fibrillation, cancer, CHF, coronary artery disease, GERD, glaucoma, hyperlipidemia, hypertension, renal disease, syncope, valvular heart disease, other Surgical history: Reports: appendectomy, cholecystectomy Psychiatric history: Reports: no psych history - Social History Smoking Status: Former smoker Smokeless Tobacco Status: No Alcohol use: Reports: none Drug use: Reports: none Physical Exam - General Limitations: no limitations General appearance: alert, in no apparent distress Course Vital Signs Temperature 97.7 F 01/28/18 02:49 Pulse Rate 70 01/28/18 02:49 Respiratory Rate 16 01/28/18 02:49 Blood Pressure 134/64 01/28/18 02:49 O2 Sat by Pulse Oximetry 98 01/28/18 02:49 Temperature 97.7 F 01/28/18 02:49 Pulse Rate 61 01/28/18 05:48 Respiratory Rate 18 01/28/18 05:48 Blood Pressure 139/86 01/28/18 05:48 O2 Sat by Pulse Oximetry 99 01/28/18 05:48 Oxygen Delivery Oxygen Delivery Room Air Medical Decision Making - Lab Data Result diagrams: 01/28/18 04:22 01/28/18 04:22 Lab Results 01/28/18 01/28/18 01/28/18 Range/Units 04:22 04:22 04:33 WBC 9.4 (4.3-11.1) K/mcL RBC 4.15 L (4.19-5.50) M/mcL Hgb 14.4 (12.9-16.9) g/dL Hct 42.6 (37.5-50.1) % MCV 102.7 H (83.0-100.0) fL MCH 34.7 H (28.0-33.3) pg MCHC 33.8 (31.6-35.5) g/dL RDW 13.0 (11.5-14.5) % Plt Count 121 L (140-400) K/mcL MPV 11.0 (9.4-12.4) fL Immature Gran % 0.9 (0-4) % Seg Neutrophils % 70.2 % Lymphocytes % 18.7 % Monocytes % 7.4 % Eosinophils % 2.5 % Basophils % 0.3 % Neutrophils # 6.6 (1.6-8.9) K/mcL Lymphocytes # 1.8 (0.6-4.6) K/mcL Monocytes # 0.7 (0.0-1.3) K/mcL Eosinophils # 0.2 (0.0-0.6) K/mcL Basophils # 0.0 (0.0-0.2) K/mcL Sodium 138 (136-145) mEq/L Potassium 4.2 (3.5-5.1) mEq/L Chloride 101 (98-107) mEq/L Carbon Dioxide 29 (23-29) mEq/L BUN 51 H (8-23) mg/dL Creatinine 1.73 H (0.70-1.30) mg/dL Est GFR ( Amer) 46 L (> 60) Est GFR (Non-Af Amer) 38 L (> 60) BUN/Creatinine Ratio 29 H (6-26) Glucose 143 H (70-105) mg/dL Calculated Osmolality 302 H (280-300) Uric Acid 12.1 H (2.3-7.6) mg/dL Calcium 9.3 (8.6-10.3) mg/dL Phosphorus 3.5 (2.7-4.5) mg/dL Magnesium 2.2 (1.6-2.6) mg/dL Creatine Kinase 68 (30-223) Units/L Urine Color Yellow (Yellow) Urine Clarity Clear (Clear) Urine pH 6.0 (5.0-8.0) pH Units Ur Specific [place] 1.012 (1.010-1.025) Urine Protein Negative (Neg-Trace) mg/dL Urine Glucose (UA) Normal (Normal) mg/dL Urine Ketones Negative (Negative) mg/dL Urine Blood Negative (Negative) Urine Nitrite Negative (Negative) Urine Bilirubin Negative (Negative) Urine Urobilinogen Normal (Normal) mg/dL Ur Leukocyte Esterase Negative (Negative) Ur Culture Indicated? NO (NO) Attestation Statement - Attestation Attestation: Medical screening examination/treatment/procedure(s) were conducted as a shared visit with non-physician practitioner(s) and myself. I personally evaluated the patient during the encounter. Patient was initially seen by Trace Jacob. Taken over at sign out by Monica. Brought to my attention upon arrival at 7 AM. The patient presented with multiple complaints. His biggest complaint is leg and hand cramping. Cramps happen intermittently and are not specifically worse with exertion. They kept him from sleeping last night which is why he presented at approximately 3 AM. He has typically been rubbing alcohol on them to help him relax. Overall symptoms of cramping have been going on for the last 3 days. Patient is currently undergoing evaluation for severe arthritis as he has required multiple knee arthrocentesis by Ortho which showed significant arthritis disease per patient. Patient has had previous carpal tunnel bilaterally as well. On top of the leg cramping he is complaining of significant fatigue and weakness. Not able to get around as well as usual. Patient now has to use a cane and states that his mobility is significantly limited. He also describes a headache that started yesterday. He states that he does not normally get headaches and he cannot say whether this is a normal headache or not. He describes it as frontal. No specific onset. Patient's headache has improved with pain medi cation and he was given in the department. He states his cramping has also improved. On evaluation of the patient's blood work. He does have a increased MCV. Given his multiple neurologic complaints he could have a possible vitamin deficiency. He also given his significant cardiac history and weakness as well as swelling in the extremities has had an increase in his overall Lasix use. He has had a decrease in his GFR and blood work does show significantly elevated BUN/creatinine ratio. Head CT and chest x-ray are pending. The patient given his multiple complaints and concern is requesting admission. At this time I do believe that he would benefit from gentle hydration as well as further investigation into reasons for cramping and generalized fatigue. Please see JOSE CRUZ note for further details and disposition.
--- NOTE | 2018-01-28 07:43 | Emergency Department Note ---
Disposition Clinical Impression: ITALO (acute kidney injury), Muscle spasm of both lower legs Disposition: Still a Patient Condition: Fair Referrals: Kendell Rawls DO [Primary Care Provider] - Forms: ED Satisfaction Letter, Work/School Release General Adult HPI - General Chief complaint: ED General Medical Stated complaint: leg/hand cramps Time Seen by Provider: 01/28/18 03:33 Source: patient, family Mode of arrival: ambulatory Limitations: no limitations - History of Present Illness Location: left, right, upper extremity, lower extremity Pain Scale: 8 Quality: aching Improves with: nothing Worsens with: nothing Associated symptoms: Denies: chest pain, cough, diaphoresis, nausea/vomiting, shortness of breath, weakness - Related Data Home Medications Medication Instructions Recorded Confirmed Omeprazole [PriLOSEC] 20 mg PO DAILY 12/11/15 11/11/17 Magnesium Oxide [Magnesium] 400 mg PO TID 06/28/17 11/11/17 Warfarin Sodium [Coumadin] 6 mg PO TUTH 09/17/17 11/11/17 Warfarin [Coumadin] 8 mg PO SUMOWEFRSA 09/17/17 11/11/17 Cholecalciferol (Vitamin D3) 1,000 unit PO DAILY 11/11/17 11/11/17 [Vitamin D] Multivit-Min/FA/Lycopen/Lutein 1 each PO DAILY 11/11/17 11/11/17 [Men 50 Plus Multivitamin Tab] [place]-3/Dha/Epa/Fish Oil [Fish Oil 1 each PO DAILY 11/11/17 11/11/17 1,000 mg Softgel] Vit B Complex/Min/Hops/Berb Cl [EC 1 each PO DAILY 11/11/17 11/11/17 Matrixx Tablet] Furosemide [Lasix] 80 mg PO QAM 01/13/18 01/13/18 Lasix 40 mg PO QPM 01/13/18 01/13/18 Previous Rx's Medication Instructions Recorded Montelukast [Singulair] 10 mg PO HS #30 tablet 08/11/16 Aspirin Enteric Coated [Aspirin EC] 81 mg PO DAILY #30 tablet. 07/01/17 Clopidogrel [Plavix] 75 mg PO DAILY #30 tablet 07/01/17 Lisinopril [Zestril] 20 mg PO DAILY #30 tablet 10/23/17 Metoprolol [Lopressor] 12.5 mg PO BID #60 tablet 10/23/17 Allergies Allergy/AdvReac Type Severity Reaction Status Date / Time Iodinated Contrast- Oral and Allergy Swelling Verified 10/22/17 09:53 IV Dye of Lip/Tongue/Throat Constitutional: Denies: fever, chills, weakness, weight change Eyes: Denies: eye pain, eye discharge, vision change ENT ED: Denies: ear pain, throat pain, dental pain, hearing loss, epistaxis, congestion, dysphagia Cardiovascular: Denies: chest pain, palpitations, dyspnea on exertion, edema, syncope Respiratory: Denies: cough, dyspnea, wheezes, hemoptysis, stridor Gastrointestinal: Denies: abdominal pain, nausea, vomiting, diarrhea, constipation, hematemesis, melena, hematochezia Genitourinary: Denies: urgency, dysuria, frequency, hematuria Musculoskeletal: Reports: as per HPI, other ("Muscle cramps"). Denies: back pain, neck pain, arthralgia, myalgia Integumentary: Denies: rash, abrasion, lesions Neurological: Denies: headache, weakness, numbness, paresthesias, confusion, abnormal gait, vertigo Psychiatric: Denies: anxiety, depression, suicidal thoughts, homicidal thoughts, auditory hallucinations, visual hallucinations Endocrine: Denies: fatigue Hematological/Lymphatic: Denies: easy bleeding, easy bruising Allergic/Immunologic: Denies: facial swelling, urticaria Past Medical History - Past Medical History Medical history: Reports: arthritis, atrial fibrillation, cancer, CHF, coronary artery disease, GERD, glaucoma, hyperlipidemia, hypertension, renal disease, syncope, valvular heart disease, other Surgical history: Reports: appendectomy, cholecystectomy Psychiatric history: Reports: no psych history - Social History Smoking Status: Former smoker Smokeless Tobacco Status: No Alcohol use: Reports: none Drug use: Reports: none Physical Exam - General Limitations: no limitations General appearance: alert, in no apparent distress Course Vital Signs Temperature 97.7 F 01/28/18 02:49 Pulse Rate 70 01/28/18 02:49 Respiratory Rate 16 01/28/18 02:49 Blood Pressure 134/64 01/28/18 02:49 O2 Sat by Pulse Oximetry 98 01/28/18 02:49 Temperature 97.7 F 01/28/18 02:49 Pulse Rate 61 01/28/18 05:48 Respiratory Rate 18 01/28/18 05:48 Blood Pressure 139/86 01/28/18 05:48 O2 Sat by Pulse Oximetry 99 01/28/18 05:48 Oxygen Delivery Oxygen Delivery Room Air Medical Decision Making - MDM Narrative Medical decision making narrative: 87 year old male with significant past medical history including HTN, DM, CAD, CHF, aortic stenosis, bilateral legs swelling, nonstemi, gout presents with m ultiple complains. Pt reported bilateral legs and arms cramping pain, generalized weakness, and headache (first time in his life). Pt recently had increased Laxis from 40 mg bid to 80 mg in AM and 40 mg in PM. Pt denied nausea/vomiting/diarrhea. Pt is on Coumadin. Physical exam: nontoxic looking, no focal neurology deficit, bilateral legs swelling. Labs: Cr. 1.73 and BUN 51 elevated comparing to before, uric acid 12.1 elevated, MCV 102 increasing. Pt seems a little dry. Gental hydration with 500 mg NS in ER. Also pain medication. Pt still complain of headache and weakness after treatment. Head CT ruled out acute change. Pt will be admit to hospital for acute kidney injury. Dr. Resendiz has seen the patient and agrees the above plan. Spoke Dr. Santana, pt is accepted. - Lab Data Result diagrams: 01/28/18 04:22 01/28/18 04:22 Lab Results 01/28/18 01/28/18 01/28/18 Range/Units 04:22 04:22 04:33 WBC 9.4 (4.3-11.1) K/mcL RBC 4.15 L (4.19-5.50) M/mcL Hgb 14.4 (12.9-16.9) g/dL Hct 42.6 (37.5-50.1) % MCV 102.7 H (83.0-100.0) fL MCH 34.7 H (28.0-33.3) pg MCHC 33.8 (31.6-35.5) g/dL RDW 13.0 (11.5-14.5) % Plt Count 121 L (140-400) K/mcL MPV 11.0 (9.4-12.4) fL Immature Gran % 0.9 (0-4) % Seg Neutrophils % 70.2 % Lymphocytes % 18.7 % Monocytes % 7.4 % Eosinophils % 2.5 % Basophils % 0.3 % Neutrophils # 6.6 (1.6-8.9) K/mcL Lymphocytes # 1.8 (0.6-4.6) K/mcL Monocytes # 0.7 (0.0-1.3) K/mcL Eosinophils # 0.2 (0.0-0.6) K/mcL Basophils # 0.0 (0.0-0.2) K/mcL Sodium 138 (136-145) mEq/L Potassium 4.2 (3.5-5.1) mEq/L Chloride 101 (98-107) mEq/L Carbon Dioxide 29 (23-29) mEq/L BUN 51 H (8-23) mg/dL Creatinine 1.73 H (0.70-1.30) mg/dL Est GFR ( Amer) 46 L (> 60) Est GFR (Non-Af Amer) 38 L (> 60) BUN/Creatinine Ratio 29 H (6-26) Glucose 143 H (70-105) mg/dL Calculated Osmolality 302 H (280-300) Uric Acid 12.1 H (2.3-7.6) mg/dL Calcium 9.3 (8.6-10.3) mg/dL Phosphorus 3.5 (2.7-4.5) mg/dL Magnesium 2.2 (1.6-2.6) mg/dL Creatine Kinase 68 (30-223) Units/L Urine Color Yellow (Yellow) Urine Clarity Clear (Clear) Urine pH 6.0 (5.0-8.0) pH Units Ur Specific [place] 1.012 (1.010-1.025) Urine Protein Negative (Neg-Trace) mg/dL Urine Glucose (UA) Normal (Normal) mg/dL Urine Ketones Negative (Negative) mg/dL Urine Blood Negative (Negative) Urine Nitrite Negative (Negative) Urine Bilirubin Negative (Negative) Urine Urobilinogen Normal (Normal) mg/dL Ur Leukocyte Esterase Negative (Negative) Ur Culture Indicated? NO (NO) - Radiology Data Radiology results reviewed: Yes I reviewed the patient's radiology results. TECHNIQUE: CT of the head was performed without the administration of intravenous contrast. Dose modulation, iterative reconstruction, and/or weight based adjustment of the mA/kV was utilized to reduce the radiation dose to as low as reasonably achievable. COMPARISON: 10/22/2017. HISTORY: ORDERING SYSTEM PROVIDED HISTORY: headache FINDINGS: BRAIN/VENTRICLES: There is no acute intracranial hemorrhage, mass effect or midline shift. No abnormal extra-axial fluid collection. The bustos-white differentiation is maintained without evidence of an acute infarct. There is no evidence of hydrocephalus. The cerebral sulci and ventricles are enlarged. There is low-attenuation within the periventricular white matter and deep white matter of the brain. ORBITS: The visualized portion of the orbits demonstrate no acute abnormality. SINUSES: The visualized paranasal sinuses and mastoid air cells demonstrate no acute abnormality. SOFT TISSUES/SKULL: No acute abnormality of the visualized skull or soft tissues. CT/CT head/brain wo con IMPRESSION: 1. No acute intracranial abnormality. 2. Diffuse cerebral atrophy with chronic small vessel ischemic disease. D/ / Pedro Pablo Jensen MD / Pedro Pablo Jensen MD Interpreting Provider: Pedro Pablo Jensen MD INATION: TWO VIEWS OF THE CHEST 01/28/2018 7:54 am COMPARISON: 05/08/2015. HISTORY: ORDERING SYSTEM PROVIDED HISTORY: swelling FINDINGS: The heart size is enlarged but unchanged. The pulmonary vasculature is also within normal limits. No acute infiltrates are seen. The costophrenic angles are sharp bilaterally. No pneumothoraces are noted.Note is made of a TAVR. XR/XR chest 2V IMPRESSION: 1. No active pulmonary disease. 2. Stable cardiomegaly without overt failure. D/ / Pedro Pablo Jensen MD / Pedro Pablo Jensen MD Interpreting Provider: Pedro Pablo Jensen MD
[2018-01-28 08:27] LABS: INR 2.4; Prothrombin Time 27.1 Seconds (9.4-12.1)
--- NOTE | 2018-01-28 08:39 | Internal Med History&Physical ---
Date of Encounter: 01/28/18 Time of Encounter: 08:35 Internal Medicine - H&P: HPI Chief complaint: lag and hands cramping Admitted From: Emergency Dept Plans for Post Hospital Care: Home History of present illness: Mr. Pond is a 87 year old male Patient with history of multiple medical problem, has severe arthritis, atrial fibrillation on Coumadin, CHF, CAD, high cholesterol, hypertension, CK D, history of CVA aortic stenosis underwent TAVR also history of diabetes and obesity. Patient recently had his Lasix increased from 40 mg twice a day to 80 mg in the morning and 40 in the evening yesterday patient developed cramping of his hands and feet also has some headache and that he came into the emergency room evaluation CT of the head was unremarkable he has acute kidney injury creatinine now 1.7 recently was 1.4 last year was normal patient been admitted for dehydration and acute kidney injury his headache is resolved after being given some pain medication no other major issues patient be admitted to observation unit for IV hydration. Also complaining of generalized weakness and fatigue we will consult PT OT for further evaluation and treatment Past Med Surg Social Fam HX - Past Medical History Medical history: arthritis, atrial fibrillation, cancer, CHF, coronary artery disease, GERD, glaucoma, hyperlipidemia, hypertension, renal disease, syncope, valvular heart disease, other Additional medical history: MACULAR DEGENERATION. NEOPLASM OF VOCAL CORD. PALPITATIONS Psychiatric history: no psych history - Past Surgical History Surgical History: appendectomy, cholecystectomy Additional surgical history: CEREBRAL ABM EMBOLIZATION. EGD/COLONOSCOPY. 03/27/16 Left carpal tunnel release - Social History Smoking Status: Former smoker Smokeless Tobacco Status: No Alcohol use: none Drug use: none - Family History Mother Adopted: No Family Member Ethnicity: Non- Living Status: Hx Family Cardiac Disorders: Yes Hx Family Respiratory Disorders: Yes Hx Family Cancer: No Hx Family GI Disorders: Yes (GERD) Hx Family Endocrine Disorder: No Hx Family Neuromuscular Disorders: No Hx Family Neurologic Disorders: No Hx Family HEENT Disorders: Yes (hole in jaw) Hx Family Autoimmune Disorders: No Father Adopted: No Living Status: (heart disease) Internal Medicine - H&P: Meds Omeprazole [PriLOSEC] 20 mg PO DAILY 12/11/15 [History] Montelukast [Singulair] 10 mg PO HS #30 tablet 06/13/17 [Rx] Magnesium Oxide [Magnesium] 400 mg PO TID 06/28/17 [History] Aspirin Enteric Coated [Aspirin EC] 81 mg PO DAILY #30 tablet. 07/01/17 [Rx] Clopidogrel [Plavix] 75 mg PO DAILY #30 tablet 07/01/17 [Rx] Warfarin Sodium [Coumadin] 6 mg PO TUTH 09/17/17 [History] Warfarin [Coumadin] 8 mg PO SUMOWEFRSA 09/17/17 [History] Lisinopril [Zestril] 20 mg PO DAILY #30 tablet 10/23/17 [Rx] Metoprolol [Lopressor] 12.5 mg PO BID #60 tablet 10/23/17 [Rx] Cholecalciferol (Vitamin D3) [Vitamin D] 1,000 unit PO DAILY 11/11/17 [History] Multivit-Min/FA/Lycopen/Lutein [Men 50 Plus Multivitamin Tab] 1 each PO DAILY 11/11/17 [History] [place]-3/Dha/Epa/Fish Oil [Fish Oil 1,000 mg Softgel] 1 each PO DAILY 11/11/17 [History] Vit B Complex/Min/Hops/Berb Cl [EC Matrixx Tablet] 1 each PO DAILY 11/11/17 [History] Furosemide [Lasix] 80 mg PO QAM 01/13/18 [History] Lasix 40 mg PO QPM 01/13/18 [History] Allergy/AdvReac Type Severity Reaction Status Date / Time Iodinated Contrast- Oral and Allergy Swelling Verified 01/28/18 08:43 IV Dye of Lip/Tongue/Throat All Systems PM: A 10-system review of systems was performed and is negative for pertinent findings except as documented above in the HPI. - Constitutional Vitals: Temp Pulse Resp BP Pulse Ox 97.7 F 59 18 139/86 100 01/28/18 02:49 01/28/18 08:31 01/28/18 08:31 01/28/18 05:48 01/28/18 08:31 Exam: done - Head Head exam: Present: atraumatic, normocephalic - Neck Neck exam general surgery: Present: supple, trachea midline. Absent: lymphadenopathy - Respiratory Respiratory exam: Present: CTAB. Absent: accessory muscle use, rales, rhonchi, wheezes - Cardiovascular Cardiovascular exam: Present: irregular rhythm, +S1, +S2, systolic murmur - GI/Abdominal GI/Abdominal exam: Present: normal bowel sounds, soft, no peritoneal signs. Absent: distended, tenderness - Extremities Exam Extremities exam: Present: warm, radial pulses palpable and symmetrical. Absent: calf tenderness, cyanotic, pedal edema Internal Med - H&P Results - Labs CBC & Chem 7: 01/28/18 04:22 01/28/18 04:22 Labs: Short CBC 01/28/18 Range/Units 04:22 WBC 9.4 (4.3-11.1) K/mcL Hgb 14.4 (12.9-16.9) g/dL Hct 42.6 (37.5-50.1) % Plt Count 121 L (140-400) K/mcL Neutrophils # 6.6 (1.6-8.9) K/mcL BMP 01/28/18 04:22 Sodium 138 Potassium 4.2 Chloride 101 Carbon Dioxide 29 BUN 51 H Creatinine 1.73 H Glucose 143 H Calcium 9.3 Urine 01/28/18 Range/Units 04:33 Urine Color Yellow (Yellow) Urine Clarity Clear (Clear) Urine pH 6.0 (5.0-8.0) pH Units Ur Specific [place] 1.012 (1.010-1.025) Urine Protein Negative (Neg-Trace) mg/dL Urine Glucose (UA) Normal (Normal) mg/dL - Impressions ITS Impressions Head CT 01/28/18 07:06 IMPRESSION: 1. No acute intracranial abnormality. 2. Diffuse cerebral atrophy with chronic small vessel ischemic disease. D/ / Pedro Pablo Jensen MD / Pedro Pablo Jensen MD Interpreting Provider: Pedro Pablo Jensen MD Chest X-Ray 01/28/18 07:22 IMPRESSION: 1. No active pulmonary disease. 2. Stable cardiomegaly without overt failure. D/ / Pedro Pablo Jensen MD / Pedro Pablo Jensen MD Interpreting Provider: Pedro Pablo Jensen MD - Assessment and plan (1) Generalized weakness Current Visit: Yes Status: Acute Assessment and plan: Nonspecific will order PT OT for evaluation and treatment (2) ITALO (acute kidney injury) Current Visit: Yes Status: Acute Assessment and plan: Acute on chronic kidney injury likely secondary to overdiuresis and dehydration (3) Muscle spasm of both lower legs Current Visit: Yes Status: Acute Assessment and plan: Etiology is unclear his electrolytes are normal if reoccurs give low-dose muscle relaxant (4) S/P aortic valve replacement Current Visit: No Status: Acute Assessment and plan: History of TAVR no complication (5) CAD (coronary artery disease) Current Visit: No Status: Chronic Assessment and plan: Denies any chest pain Qualifiers: Coronary Disease-Associated Artery/Lesion type: [place] artery [place] vs. t ransplanted heart: [place] heart Associated angina: without angina Qualified Code(s): I25.10 - Atherosclerotic heart disease of [place] coronary artery without angina pectoris (6) Diabetes Current Visit: No Status: Chronic Assessment and plan: Resume home medication and place on sliding scale Qualifiers: Diabetes mellitus type: type 2 Diabetes mellitus intermediate insulin use: without intermediate use Diabetes mellitus complication status: without complica tion Qualified Code(s): E11.9 - Type 2 diabetes mellitus without complications (7) HTN (hypertension) Current Visit: No Status: Chronic Assessment and plan: Chronic and well controlled Qualifiers: Hypertension type: essential hypertension Qualified Code(s): I10 - Essential (primary) hypertension - Time Spent With Patient Total time spent is greater than 50% in coordination of care (as documented) at patient's floor/unit and/or counseling patient:
[2018-01-28] MEDS ORDERED: Naloxone 0.4 MG/ML INJ IVP PRN (08:44)
[2018-01-28] MEDS ORDERED: Acetaminophen 325 MG TABLET PO PRN (08:44)
[2018-01-28] MEDS ORDERED: traMADol 50 MG TABLET PO PRN (08:44)
[2018-01-28] MEDS ORDERED: *HR* Warfarin 4 MG TABLET PO SCH ×2 (09:00→18:00)
[2018-01-28] MEDS: 0.9 % Sodium Chloride 1,000 ML IVC SCH (10:45)
[2018-01-28] MEDS: Lisinopril 20 MG TABLET PO SCH (11:58)
[2018-01-28] MEDS: Multivit/Ca/Min/Fe/FA 1 TAB TABLET PO SCH (11:58)
[2018-01-28] MEDS: Magnesium Oxide 400 MG TABLET PO SCH ×3 (11:58→21:27)
[2018-01-28] MEDS: Cholecalciferol (D-3) 1,000 UNIT TABLET PO SCH (11:59)
[2018-01-28] MEDS ORDERED: Melatonin 3 MG TABLET PO ONE (23:48)
[2018-01-29] MEDS: 0.9 % Sodium Chloride 1,000 ML IVC SCH (02:44)
[2018-01-29 04:45] LABS: Calcium 9.2 mg/dL (8.6-10.3); Potassium 4.6 mEq/L (3.5-5.1)
[2018-01-29] MEDS: Multivit/Ca/Min/Fe/FA 1 TAB TABLET PO SCH (08:00)
[2018-01-29] MEDS: Lisinopril 20 MG TABLET PO SCH (08:00)
[2018-01-29] MEDS: Magnesium Oxide 400 MG TABLET PO SCH ×3 (08:00→22:10)
[2018-01-29] MEDS: Cholecalciferol (D-3) 1,000 UNIT TABLET PO SCH (08:00)
--- NOTE | 2018-01-29 12:38 | Internal Med Progress Note ---
Hospitalist Progress Note - Encounter Date of Encounter: 01/29/18 Time of Encounter: 12:36 - Subjective Interval History: Patient seen and examined at bedside today. He reports that his bilateral upper arm/hand and bilateral lower extremity legs/feet cramping have resolved. This is likely the result of dehydration with overdiuresis - Exam Vitals: Temp Pulse Resp BP Pulse Ox 97.5 F L 53 16 131/63 96 01/29/18 11:47 01/29/18 11:47 01/29/18 11:47 01/29/18 11:47 01/29/18 11:47 Exam: PHYSICAL EXAMINATION: GENERAL: The patient is an ill-appearing elderly male, NAD, a and O 3 HEENT: Head is normocephalic and atraumatic. Extraocular muscles are intact. Pupils are equal, round, and reactive to light and accommodation. NECK: Supple. No carotid bruits. No lymphadenopathy or thyromegaly. LUNGS: Clear/diminished to auscultation B/L AP and L. no rales or rhonchi noted HEART: Regular rate and rhythm, S1, S2 without murmur. ABDOMEN: Soft, nontender, and nondistended. Positive bowel sounds. No hepatosplenomegaly was noted. EXTREMITIES: Bilateral lower showed 1+ pitting edema persistent. LLE is circumferentially larger than the right, this is chronic, distal circulation intact NEUROLOGIC: Without facial droop or slurred speech SKIN: No ulceration or induration present. - Assessment and Plan (1) ITALO (acute kidney injury) Current Visit: Yes Status: Acute Assessment and Plan: Secondary to overdiuresis and dehydration Patient reports that for the last month he has been taking 80 mg of Lasix a.m. and 40 mg p.m. He reports that these doses were initiated by his cooling pan tender in order to assist with bilateral lower extremity edema Diuretics currently being held with overdiuresis and dehydration Renal function improving today Continue to hold diuretics today and resume tomorrow when renal function stabilizes (2) Generalized weakness Current Visit: Yes Status: Acute Assessment and Plan: Chronic generalized weakness and fatigue PT and OT following; awaiting recommendations (3) Muscle spasm of both lower legs Current Visit: Yes Status: Acute Assessment and Plan: Likely due to dehydration secondary to overdiuresis Holding Lasix today, resume tomorrow These have resolved No metabolic derangements noted on BMP Should they return consider adding a muscle relaxer (4) S/P aortic valve replacement Current Visit: No Status: Acute Assessment and Plan: continue warfarin PT to dose INR 2.4 (5) CAD (coronary artery disease) Current Visit: No Status: Chronic Assessment and Plan: Continue cardiac medications chest pain free continue tele hold BB if HR less than 60 (6) Diabetes Current Visit: No Status: Chronic Assessment and Plan: Hyperglycemia on fingerstick blood glucose this morning Start low sliding scale insulin coverage Diabetic diet AC/HS Accu-Cheks (7) HTN (hypertension) Current Visit: No Status: Chronic Assessment and Plan: History of hypertension BP control Resume home anti-HTN medications (8) Dehydration Current Visit: Yes Status: Acute Assessment and Plan: As above - Time Spent with Patient Total time spent is greater than 50% in coordination of care (as documented) at patient's floor/unit and/or counseling patient: less than 15 minutes Plan of Care Discussed with: patient Internal Medicine: Result - Labs CBC & Chem 7: 01/28/18 04:22 01/29/18 03:50 Labs: BMP 01/29/18 03:50 Sodium 137 Potassium 4.6 Chloride 106 Carbon Dioxide 26 BUN 37 H Creatinine 1.43 H Glucose 147 H Calcium 9.2 - ABG Interpretation ABG results: PT/INR, D-dimer PT 27.1 Seconds (9.4-12.1) H 01/28/18 07:58 Consult Discharge Plan - Plan Referrals: Kendell Rawls DO [Primary Care Provider] - (5) CAD (coronary artery disease) Qualifiers: Coronary Disease-Associated Artery/Lesion type: [place] artery [place] vs. transplanted heart: [place] heart Associated angina: without angina Qualified Code(s): I25.10 - Atherosclerotic heart disease of [place] coronary artery without angina pectoris (6) Diabetes Qualifiers: Diabetes mellitus type: type 2 Diabetes mellitus long-term insulin use: without intermediate card tender use Diabetes mellitus complication status: without complication Qualified Code(s): E11.9 - Type 2 diabetes mellitus without complications (7) HTN (hypertension) Qualifiers: Hypertension type: essential hypertension Qualified Code(s): I10 - Essential (primary) hypertension
[2018-01-29] MEDS ORDERED: *HR* Dextrose 50 % in Water (Syg) 50 ML SYRINGE IVP PRN (12:40)
[2018-01-29] MEDS ORDERED: Dextrose Gel 15 GM/37.5 ML TUBE PO PRN ×2 (12:40)
[2018-01-29] MEDS ORDERED: D5% in Water 1,000 ML IVC PRN (12:40)
[2018-01-29 14:02] LABS: INR 2.4; Prothrombin Time 27.1 Seconds (9.4-12.1)
[2018-01-29] MEDS: Insulin LISPRO 300 UNITS/3 ML VIAL SQ SCH (17:37)
[2018-01-29] MEDS ORDERED: *HR* Warfarin 4 MG TABLET PO SCH (18:00)
[2018-01-29] MEDS ORDERED: Warfarin perPT PO PRN (18:00)
--- NOTE | 2018-01-29 20:08 | Electrocardiograph Report ---
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
[2018-01-29] MEDS ORDERED: Insulin LISPRO 300 UNITS/3 ML VIAL SQ SCH (21:00)
[2018-01-30] MEDS ORDERED: Melatonin 3 MG TABLET PO PRN (03:48)
[2018-01-30 05:02] LABS: INR 2.2; Prothrombin Time 25.2 Seconds (9.4-12.1)
[2018-01-30] MEDS: Multivit/Ca/Min/Fe/FA 1 TAB TABLET PO SCH (09:40)
[2018-01-30] MEDS: Lisinopril 20 MG TABLET PO SCH (09:40)
[2018-01-30] MEDS: Cholecalciferol (D-3) 1,000 UNIT TABLET PO SCH (09:40)
[2018-01-30] MEDS: Magnesium Oxide 400 MG TABLET PO SCH (09:40)
[2018-01-30] MEDS: Insulin LISPRO 300 UNITS/3 ML VIAL SQ SCH ×2 (09:41→12:36)
[2018-01-30 11:08] VITALS: BP 167/80
--- NOTE | 2018-01-30 15:37 | Discharge Summary ---
- NOTES TO OUTPATIENT PROVIDER Notes to Outpatient Provider: Patient with ITALO and bilateral upper arm, bilateral hand and bilateral feet cramping. Found to have dehydration secondary to overdiuresis. The patient reports that for the last 3-4 weeks he has been taking 80 mg by mouth Lasix in the morning and 40 mg at night. Lasix was held throughout stay and cramping symptoms resolved. ITALO improving. D/C with Rx for Lasix PO 40mg BID; f/u with PCP to discuss titrating lasix dose and to repear serum creatinine Orders not resulted at time of discharge: Pending orders 01/31/18 04:00 PT/INR [Prothrombin Time INR] [COAG] AM 0400 02/01/18 04:00 PT/INR [Prothrombin Time INR] [COAG] AM 0400 Date of Encounter: 01/30/18 Time of Encounter: 15:35 - Discharge Diagnosis (1) ITALO (acute kidney injury) Priority: Primary Status: Acute Assessment and Plan: Scr improving with holding lasix will resume lasix at d/c instructed to f/u with PCP in 1-week to reassess renal function and discuss lasix dose D/C with 40mg PO BID (2) Generalized weakness Priority: Secondary Status: Acute (3) Muscle spasm of both lower legs Priority: Secondary Status: Resolved (4) S/P aortic valve replacement Priority: Secondary Status: Acute (5) CAD (coronary artery disease) Priority: Secondary Status: Chronic Qualifiers: Coronary Disease-Associated Artery/Lesion type: [place] artery [place] vs. transplanted heart: blackfeet heart Associated angina: without angina Qualified Code(s): I25.10 - Atherosclerotic heart disease of [place] coronary artery without angina pectoris (6) Diabetes Priority: Secondary Status: Chronic Qualifiers: Diabetes mellitus type: type 2 Diabetes mellitus halfway insulin use: without halfway use Diabetes mellitus complication status: without complication Qualified Code(s): E11.9 - Type 2 diabetes mellitus without complications (7) HTN (hypertension) Priority: Secondary Status: Chronic Qualifiers: Hypertension type: essential hypertension Qualified Code(s): I10 - Essential (primary) hypertension (8) Dehydration Priority: Secondary Status: Resolved Hospital course: Mr. Pond is a 87 year old male Please see note to outpatient provider The patient has had ample education regarding fluid restriction and low sodium diet. Additionally, he is instructed to monitor his weight and report any changes in weight to his family physician and/or transportation lead. Additionally, he has been instructed to follow-up with his PCP to discuss titrating Lasix dose. He has been cleared to return to cardiac rehabilitation. He is instructed to follow-up with his transportation lead as scheduled on 02/04/18. Discharge discussed with: patient, nurse - Time Spent with Patient Total time spent providing and/or coordinating discharge services: Less than 30 minutes - Discharge Medications Home Medications: Omeprazole [PriLOSEC] 20 mg PO DAILY 12/11/15 [History] Montelukast [Singulair] 10 mg PO HS #30 tablet 08/11/16 [Rx] Magnesium Oxide [Magnesium] 400 mg PO TID 06/28/17 [History] Clopidogrel [Plavix] 75 mg PO DAILY #30 tablet 07/01/17 [Rx] Warfarin Sodium [Coumadin] 6 mg PO TUTH 09/17/17 [History] Warfarin [Coumadin] 8 mg PO SUMOWEFRSA 09/17/17 [History] Lisinopril [Zestril] 20 mg PO DAILY #30 tablet 10/23/17 [Rx] Metoprolol [Lopressor] 12.5 mg PO BID #60 tablet 10/23/17 [Rx] Cholecalciferol (Vitamin D3) [Vitamin D3] 1,000 unit PO DAILY 11/11/17 [History] Multivit-Min/FA/Lycopen/Lutein [Men 50 Plus Multivitamin Tab] 1 each PO DAILY 11/11/17 [History] Gilson-3/Dha/Epa/Fish Oil [Fish Oil 1,000 mg Softgel] 1 cap PO BID 11/11/17 [History] Ascorbic Acid [Vitamin C] 100 mg PO DAILY 01/28/18 [History] Potassium Gluconate [Potassium] 99 mg PO Q48H 01/28/18 [History] Furosemide [Lasix] 40 mg PO BID 30 Days #120 tab 01/30/18 [Rx] Allergies/Adverse Reactions: Allergy/AdvReac Type Severity Reaction Status Date / Time Iodinated Contrast- Oral and Allergy Swelling Verified 01/28/18 08:43 IV Dye of Lip/Tongue/Throat Date of admission: 01/28/18 08:27 Primary care physician: Kendell Rawls DO Consults: 01/28/18 08:51 Consult for Pharmacy Education [CONS] Routine Reason for Consult: manage coumadin dosing Time Notified: 08:51 Call Completed: No Discharging clinician: Obdulio Dubon Anticipated date of discharge: 01/30/18 - Constitutional Vitals: Temp Pulse Resp BP Pulse Ox 97.8 F 64 16 167/80 95 01/30/18 11:02 01/30/18 11:02 01/30/18 11:02 01/30/18 11:02 01/30/18 11:02 General appearance: Present: A&O X 3 Exam: PHYSICAL EXAMINATION: GENERAL: The patient is an ill-appearing elderly male, NAD, a and O 3 HEENT: Head is normocephalic and atraumatic. Extraocular muscles are intact. Pupils are equal, round, and reactive to light and accommodation. NECK: Supple. No carotid bruits. No lymphadenopathy or thyromegaly. LUNGS: Clear/diminished to auscultation B/L AP and L. no rales or rhonchi noted HEART: Regular rate and rhythm, S1, S2 without murmur. ABDOMEN: Soft, nontender, and nondistended. Positive bowel sounds. No hepatosplenomegaly was noted. EXTREMITIES: Chronic generalized BLE edema. LLE is circumferentially larger than the right, this is chronic, distal circulation intact NEUROLOGIC: Without facial droop or slurred speech SKIN: No ulceration or induration present. - Patient Status Disposition: Home, Self-Care Condition: Fair Functional capacity at discharge: independent ambulation Overall status at discharge: patient is progressing back to baseline - Discharge Instructions Follow Up With: Kendell Rawls DO [Primary Care Provider] - - Diet and Activity Activity: increase activity as tolerated, resume usual activities as tolerated Diet: diabetic diet, low fat, low cholesterol, low salt diet
[2018-01-30] MEDS ORDERED: *HR* Warfarin 10 MG TABLET PO ONE (18:00)
[2018-02-01] MEDS ORDERED: *HR* Warfarin 3 MG TABLET PO SCH ×2 (18:00)
== END 2018-01-30 16:43 | disposition home or self-care (01) ==
LOC: 3BNU 02:45 → EMEROOARM 02:45 → 3BNU 08:42
PROVIDERS: ADMIT Internal Medicine Cardiovascular Disease; ATTEND Internal Medicine Cardiovascular Disease

== ENCOUNTER 2019-03-25 04:31 | Observation (INO) ==
[2019-03-25] MEDS ORDERED: Aspirin 81 MG TAB.CHEW PO ONE (04:40)
[2019-03-25 05:00] LABS: Basophils % 0.4 %; Eosinophils # 0.3 K/mcL (0.0-0.6); Eosinophils % 3.2 %; Hematocrit 39.9 % (37.5-50.1); Immature Granulocytes % 0.5 % (0-4); Lymphocytes # 2.2 K/mcL (0.6-4.6); Lymphocytes % 26.4 %; Mean Corpuscular HGB Conc 35.1 g/dL (31.6-35.5); Mean Corpuscular Hemoglobin 36.6 pg (28.0-33.3); Mean Corpuscular Volume 104.2 fL (83.0-100.0); Mean Platelet Volume 11.4 fL (9.4-12.4); Monocytes # 0.7 K/mcL (0.0-1.3); Monocytes % 8.1 %; Neutrophils # 5.1 K/mcL (1.6-8.9); Platelet Count 130 K/mcL (140-400); Red Blood Count 3.83 M/mcL (4.19-5.50); Red Cell Distribution Width 13.4 % (11.5-14.5); Segmented Neutrophils % 61.4 %; White Blood Count 8.3 K/mcL (4.3-11.1)
[2019-03-25 05:09] LABS: INR 2.4; Prothrombin Time 26.8 Seconds (9.4-12.1)
[2019-03-25 05:25] LABS: Calcium 9.7 mg/dL (8.6-10.3); Potassium 4.4 mEq/L (3.5-5.1); Troponin I 0.03 ng/mL (< 0.04)
[2019-03-25] MEDS ORDERED: 0.9 % Sodium Chloride 1,000 ML IVC ONE (05:31)
[2019-03-25] MEDS ORDERED: Naloxone 0.4 MG/ML INJ IVP PRN (09:59)
[2019-03-25] MEDS: Magnesium Oxide 400 MG TABLET PO SCH ×2 (15:40→20:45)
[2019-03-25] MEDS ORDERED: *HR* Warfarin 4 MG TABLET PO ONE (18:00)
[2019-03-25] MEDS ORDERED: Warfarin perPT PO PRN (18:00)
[2019-03-25] MEDS ORDERED: Bisacodyl 10 MG RECTAL SUPPOSITORY RC ONE (19:59)
[2019-03-26 06:45] LABS: Basophils % 0.5 %; Eosinophils # 0.2 K/mcL (0.0-0.6); Eosinophils % 3.3 %; Hematocrit 35.4 % (37.5-50.1); Hemoglobin 12.5 g/dL (12.9-16.9); Immature Granulocytes % 0.5 % (0-4); Lymphocytes # 1.7 K/mcL (0.6-4.6); Lymphocytes % 27.1 %; Mean Corpuscular HGB Conc 35.3 g/dL (31.6-35.5); Mean Corpuscular Hemoglobin 36.4 pg (28.0-33.3); Mean Corpuscular Volume 103.2 fL (83.0-100.0); Mean Platelet Volume 11.5 fL (9.4-12.4); Monocytes # 0.6 K/mcL (0.0-1.3); Monocytes % 9.2 %; Neutrophils # 3.8 K/mcL (1.6-8.9); Platelet Count 109 K/mcL (140-400); Red Blood Count 3.43 M/mcL (4.19-5.50); Red Cell Distribution Width 13.4 % (11.5-14.5); Segmented Neutrophils % 59.4 %; White Blood Count 6.3 K/mcL (4.3-11.1)
[2019-03-26 06:48] LABS: INR 2.8; Prothrombin Time 32.1 Seconds (9.4-12.1)
[2019-03-26 07:07] LABS: Chol/HDL Ratio 2.8 (0-4.9)
[2019-03-26 07:09] LABS: Potassium 4.5 mEq/L (3.5-5.1)
[2019-03-26] MEDS ORDERED: Regadenoson 0.4 MG/5 ML SYRINGE IVP ONE (07:34)
[2019-03-26] MEDS: Magnesium Oxide 400 MG TABLET PO SCH ×3 (12:50→20:49)
[2019-03-26] MEDS: Cyanocobalamin (B-12) 1,000 MCG TABLET PO SCH (12:58)
[2019-03-26] MEDS: Cholecalciferol (D-3) 1,000 UNIT (25MCG) TABLET PO SCH (12:58)
[2019-03-26] MEDS ORDERED: Fluticasone Propionate Nasal 50 MCG/SPRAY BOTTLE NS PRN (17:38)
[2019-03-26] MEDS ORDERED: *HR* Warfarin 3 MG TABLET PO ONE (18:00)
[2019-03-26] MEDS ORDERED: 0.9 % Sodium Chloride 1,000 ML IVC SCH (18:15)
[2019-03-26] MEDS: Acetaminophen 325 MG TABLET PO PRN (21:53)
[2019-03-26] MEDS ORDERED: Saline Nasal Spray 44 ML BOTTLE NS ONE (22:16)
[2019-03-26] MEDS ORDERED: Methyl Salicylate/Menthol 57 APPL/57 GM TUBE TP PRN (22:43)
[2019-03-27 02:07] LABS: INR 2.9; Prothrombin Time 32.8 Seconds (9.4-12.1)
[2019-03-27 08:19] LABS: Potassium 4.5 mEq/L (3.5-5.1)
[2019-03-27] MEDS ORDERED: CHOLECALCIFEROL PO SCH (09:00)
[2019-03-27] MEDS ORDERED: PANTOTHENIC ACID PO SCH (09:00)
[2019-03-27] MEDS ORDERED: SELENIUM 200 MCG PO SCH (09:00)
[2019-03-27] MEDS: Cholecalciferol (D-3) 1,000 UNIT (25MCG) TABLET PO SCH (09:27)
[2019-03-27] MEDS: Cyanocobalamin (B-12) 1,000 MCG TABLET PO SCH (09:27)
[2019-03-27] MEDS: Magnesium Oxide 400 MG TABLET PO SCH (09:27)
[2019-03-27] MEDS: Acetaminophen 325 MG TABLET PO PRN (09:33)
[2019-03-27 11:11] VITALS: BP 103/78
[2019-03-27] MEDS ORDERED: *HR* Warfarin 3 MG TABLET PO ONE (18:00)
== END 2019-03-27 13:35 | disposition home or self-care (01) ==
LOC: 3BNU 04:31 → EMEROOARM 04:31 → 3BNU 07:45
PROVIDERS: ADMIT Internal Medicine; ATTEND Internal Medicine

== ENCOUNTER 2019-06-03 05:38 | Observation (INO) ==
[2019-06-03] MEDS ORDERED: Aspirin 81 MG TAB.CHEW PO ONE (05:53)
[2019-06-03] MEDS ORDERED: Nitroglycerin 0.4 MG TAB.SUBL SL PRN (06:05)
[2019-06-03 06:15] LABS: Basophils % 0.4 %; Eosinophils # 0.3 K/mcL (0.0-0.6); Eosinophils % 3.3 %; Hematocrit 41.6 % (37.5-50.1); Hemoglobin 13.9 g/dL (12.9-16.9); Immature Granulocytes % 0.5 % (0-4); Lymphocytes # 1.7 K/mcL (0.6-4.6); Lymphocytes % 21.4 %; Mean Corpuscular HGB Conc 33.4 g/dL (31.6-35.5); Mean Corpuscular Hemoglobin 36.7 pg (28.0-33.3); Mean Corpuscular Volume 109.8 fL (83.0-100.0); Monocytes # 0.7 K/mcL (0.0-1.3); Monocytes % 9.1 %; Neutrophils # 5.2 K/mcL (1.6-8.9); Platelet Count 128 K/mcL (140-400); Red Blood Count 3.79 M/mcL (4.19-5.50); Red Cell Distribution Width 14.1 % (11.5-14.5); Segmented Neutrophils % 65.3 %
[2019-06-03 06:22] LABS: INR 3.3; Prothrombin Time 38.1 Seconds (9.4-12.1)
[2019-06-03 06:24] LABS: Activated Partial Thrombo Time 52.8 Seconds (26.0-36.0)
[2019-06-03 06:39] LABS: Calcium 9.8 mg/dL (8.6-10.3); Potassium 4.2 mEq/L (3.5-5.1); Troponin I 0.03 ng/mL (< 0.04)
[2019-06-03] MEDS ORDERED: Naloxone 0.4 MG/ML INJ IVP PRN (10:51)
[2019-06-03] MEDS ORDERED: Potassium Chloride Elixir 20 MEQ/15 ML UDC PO SCH (11:00)
[2019-06-03] MEDS: lisinopriL 5 MG TABLET PO SCH (13:31)
[2019-06-03] MEDS: Magnesium Oxide 400 MG TABLET PO SCH ×2 (16:03→21:59)
[2019-06-03] MEDS: Furosemide 40 MG TABLET PO SCH (16:03)
[2019-06-03] MEDS ORDERED: Fluticasone Propionate Nasal 50 MCG/SPRAY BOTTLE NS PRN (17:59)
[2019-06-03] MEDS ORDERED: Warfarin perPT PO PRN (18:00)
[2019-06-03] MEDS ORDERED: NON-FORMULARY MEDICATION 1 EACH EACH (Omega-3/Dha/Epa/Fish Oil [Fish Oil 1,000 Mg Softgel] PO SCH (21:00)
[2019-06-03] MEDS: Spironolactone 25 MG TABLET PO SCH (21:57)
[2019-06-03] MEDS: allopurinoL 100 MG TABLET PO SCH (21:59)
[2019-06-04 01:12] LABS: Basophils % 0.4 %; Eosinophils # 0.2 K/mcL (0.0-0.6); Hematocrit 38.6 % (37.5-50.1); Hemoglobin 13.1 g/dL (12.9-16.9); Immature Granulocytes % 0.4 % (0-4); Lymphocytes # 1.7 K/mcL (0.6-4.6); Mean Corpuscular HGB Conc 33.9 g/dL (31.6-35.5); Mean Corpuscular Hemoglobin 37.1 pg (28.0-33.3); Mean Corpuscular Volume 109.3 fL (83.0-100.0); Mean Platelet Volume 11.5 fL (9.4-12.4); Monocytes # 0.8 K/mcL (0.0-1.3); Neutrophils # 4.9 K/mcL (1.6-8.9); Platelet Count 113 K/mcL (140-400); Red Blood Count 3.53 M/mcL (4.19-5.50); Red Cell Distribution Width 14.2 % (11.5-14.5); Segmented Neutrophils % 64.2 %; White Blood Count 7.6 K/mcL (4.3-11.1)
[2019-06-04 01:15] LABS: INR 3.8
[2019-06-04 01:22] LABS: Prothrombin Time 43.5 Seconds (9.4-12.1)
[2019-06-04 01:33] LABS: Calcium 9.4 mg/dL (8.6-10.3); Potassium 4.2 mEq/L (3.5-5.1)
[2019-06-04] MEDS: Furosemide 40 MG TABLET PO SCH (08:20)
[2019-06-04] MEDS: Spironolactone 25 MG TABLET PO SCH (08:20)
[2019-06-04] MEDS: Magnesium Oxide 400 MG TABLET PO SCH (08:22)
[2019-06-04] MEDS: lisinopriL 5 MG TABLET PO SCH (08:23)
[2019-06-04] MEDS: allopurinoL 100 MG TABLET PO SCH (08:23)
[2019-06-04] MEDS ORDERED: Cyanocobalamin (B-12) 1,000 MCG TABLET PO SCH (09:00)
[2019-06-04] MEDS ORDERED: Cholecalciferol (D-3) 1,000 UNIT (25MCG) TABLET PO SCH (09:00)
[2019-06-04] MEDS ORDERED: Aspirin Enteric Coated 81 MG Tablet PO SCH (09:00)
[2019-06-04 10:40] VITALS: BP 121/62
== END 2019-06-04 15:52 | disposition home or self-care (01) ==
LOC: 2ANU 05:38 → EMEROOARM 05:38 → SUATTDRO 10:48 → 2ANU 11:19
PROVIDERS: ADMIT Internal Medicine; ATTEND Internal Medicine

== ENCOUNTER 2019-10-02 14:44 | Observation (INO) ==
[2019-10-02 16:13] LABS: Basophils % 0.6 %; Eosinophils # 0.3 K/mcL (0.0-0.6); Eosinophils % 4.2 %; Hematocrit 40.7 % (37.5-50.1); Hemoglobin 13.4 g/dL (12.9-16.9); Immature Granulocytes % 0.6 % (0-4); Lymphocytes # 1.6 K/mcL (0.6-4.6); Lymphocytes % 22.3 %; Mean Corpuscular HGB Conc 32.9 g/dL (31.6-35.5); Mean Corpuscular Hemoglobin 36.5 pg (28.0-33.3); Mean Corpuscular Volume 110.9 fL (83.0-100.0); Mean Platelet Volume 10.8 fL (9.4-12.4); Monocytes # 0.7 K/mcL (0.0-1.3); Monocytes % 9.4 %; Neutrophils # 4.5 K/mcL (1.6-8.9); Platelet Count 125 K/mcL (140-400); Red Blood Count 3.67 M/mcL (4.19-5.50); Red Cell Distribution Width 13.3 % (11.5-14.5); Segmented Neutrophils % 62.9 %; White Blood Count 7.1 K/mcL (4.3-11.1)
[2019-10-02 16:44] LABS: BUN/Creatinine Ratio 20 (6-26); Blood Urea Nitrogen 28 mg/dL (8-23); Calcium 9.4 mg/dL (8.6-10.3); Carbon Dioxide 29 mEq/L (23-29); Chloride 101 mEq/L (98-107); Glucose 143 mg/dL (70-105); Osmolality,Calculated 290 (280-300); Potassium 4.6 mEq/L (3.5-5.1); Sodium 136 mEq/L (136-145); Troponin I < 0.03 ng/mL (< 0.04); eGFR For African Americans 58 (> 60); eGFR For Non-African Americans 48 (> 60)
[2019-10-02] MEDS ORDERED: Furosemide 40 MG/4 ML VIAL IVP ONE (16:46)
[2019-10-02 16:48] LABS: Macrocytosis Present (Not Present); Platelet Estimate Slight Decrease (Normal)
[2019-10-02 16:54] LABS: INR 3.7; Prothrombin Time 42.3 Seconds (9.4-12.1)
[2019-10-02 17:24] LABS: Bilirubin,Urine Negative (Negative); Blood,Urine Negative (Negative); Clarity,Urine Clear (Clear); Color,Urine Yellow (Yellow); Glucose,Urine (UA) Normal (Normal); Ketones,Urine Negative (Negative); Leukocyte Esterase,Urine Negative (Negative); Nitrite,Urine Negative (Negative); PH,Urine 5.5 pH Units (5.0-8.0); Protein,Urine Trace mg/dL (Neg-Trace); Specific Gravity,Urine 1.026 (1.010-1.025); Urobilinogen,Urine Normal (Normal)
[2019-10-02] MEDS ORDERED: Naloxone 0.4 MG/ML INJ IVP PRN (17:25)
[2019-10-02] MEDS ORDERED: *HR* Promethazine 25 MG/ML VIAL IVP PRN (17:25)
[2019-10-02] MEDS ORDERED: Acetaminophen 325 MG TABLET PO PRN (17:25)
[2019-10-02 19:02] LABS: Adenovirus Not Detected (Not Detect); Bordetella Pertussis Not Detected (Not Detect); Chlamydophila pneumoniae Not Detected (Not Detect); Coronavirus 229E Not Detected (Not Detect); Coronavirus HKU1 Not Detected (Not Detect); Coronavirus NL63 Not Detected (Not Detect); Coronavirus OC43 Not Detected (Not Detect); Human Metapneumovirus Not Detected (Not Detect); Human Rhinovirus/Enterovirus Not Detected (Not Detect); Influenza A Subtype 2009 H1 Not Detected (Not Detect); Influenza B Not Detected (Not Detect); Mycoplasma pneumoniae Not Detected (Not Detect); Parainfluenza Virus 1 Not Detected (Not Detect); Parainfluenza Virus 2 Not Detected (Not Detect); Parainfluenza Virus 3 Not Detected (Not Detect); Parainfluenza Virus 4 Not Detected (Not Detect); Respiratory Syncytial Virus Not Detected (Not Detect)
[2019-10-02] MEDS: Furosemide 40 MG/4 ML VIAL IVP SCH (21:51)
[2019-10-02] MEDS: Bumetanide 1 MG TABLET PO SCH (22:28)
[2019-10-02 23:44] LABS: Prothrombin Time 45.2 Seconds (9.4-12.1)
[2019-10-03 03:54] LABS: INR 4.1
[2019-10-03 03:59] LABS: Hematocrit 38.3 % (37.5-50.1); Hemoglobin 13.1 g/dL (12.9-16.9); Mean Corpuscular HGB Conc 34.2 g/dL (31.6-35.5); Mean Platelet Volume 11.6 fL (9.4-12.4); Platelet Count 111 K/mcL (140-400); Red Blood Count 3.45 M/mcL (4.19-5.50); Red Cell Distribution Width 13.2 % (11.5-14.5); White Blood Count 6.4 K/mcL (4.3-11.1)
[2019-10-03 04:07] LABS: Calcium 9.2 mg/dL (8.6-10.3); Potassium 4.1 mEq/L (3.5-5.1)
[2019-10-03 04:31] LABS: Prothrombin Time 46.8 Seconds (9.4-12.1)
[2019-10-03] MEDS ORDERED: Perflutren Lipid Microsphere 1.3 ML in 0.9 % Sodium Chloride 8.7 ML IVP PRN (07:19)
[2019-10-03] MEDS ORDERED: Cyanocobalamin (B-12) 1,000 MCG TABLET PO SCH (09:00)
[2019-10-03] MEDS ORDERED: Cholecalciferol (D-3) 1,000 UNIT (25MCG) TABLET PO SCH (09:00)
[2019-10-03] MEDS: Furosemide 40 MG/4 ML VIAL IVP SCH ×2 (10:46→22:02)
[2019-10-03] MEDS: lisinopriL 5 MG TABLET PO SCH (10:49)
[2019-10-03] MEDS: Aspirin Enteric Coated 81 MG Tablet PO SCH (10:49)
[2019-10-03] MEDS: Bumetanide 1 MG TABLET PO SCH (10:53)
[2019-10-03] MEDS ORDERED: NON-FORMULARY MEDICATION 1 EACH EACH (Omega-3/Dha/Epa/Fish Oil [Fish Oil 1,000 Mg Softgel] PO SCH (15:00)
[2019-10-03] MEDS ORDERED: Warfarin perPT PO PRN (18:00)
[2019-10-03] MEDS ORDERED: NON-FORMULARY MEDICATION 1 EACH EACH (Biotin 1 MG) PO SCH (21:00)
[2019-10-03] MEDS: allopurinoL 100 MG TABLET PO SCH (22:02)
[2019-10-04 01:43] LABS: Basophils % 0.3 %; Eosinophils # 0.3 K/mcL (0.0-0.6); Eosinophils % 3.7 %; Hematocrit 37.6 % (37.5-50.1); Hemoglobin 12.6 g/dL (12.9-16.9); Immature Granulocytes % 0.3 % (0-4); Lymphocytes # 1.6 K/mcL (0.6-4.6); Lymphocytes % 21.5 %; Mean Corpuscular HGB Conc 33.5 g/dL (31.6-35.5); Mean Corpuscular Hemoglobin 36.3 pg (28.0-33.3); Mean Corpuscular Volume 108.4 fL (83.0-100.0); Mean Platelet Volume 11.2 fL (9.4-12.4); Monocytes # 0.7 K/mcL (0.0-1.3); Monocytes % 10.1 %; Neutrophils # 4.6 K/mcL (1.6-8.9); Platelet Count 119 K/mcL (140-400); Red Blood Count 3.47 M/mcL (4.19-5.50); Red Cell Distribution Width 13.2 % (11.5-14.5); Segmented Neutrophils % 64.1 %; White Blood Count 7.2 K/mcL (4.3-11.1)
[2019-10-04 01:44] LABS: INR 2.9; Prothrombin Time 33.5 Seconds (9.4-12.1)
[2019-10-04 02:07] LABS: Calcium 9.2 mg/dL (8.6-10.3); Potassium 3.9 mEq/L (3.5-5.1)
[2019-10-04] MEDS: Magnesium Oxide 400 MG TABLET PO SCH (09:18)
[2019-10-04] MEDS: Aspirin Enteric Coated 81 MG Tablet PO SCH (09:18)
[2019-10-04] MEDS: Cholecalciferol (D-3) 1,000 UNIT (25MCG) TABLET PO SCH (09:18)
[2019-10-04] MEDS: Cyanocobalamin (B-12) 1,000 MCG TABLET PO SCH (09:18)
[2019-10-04] MEDS: Furosemide 40 MG/4 ML VIAL IVP SCH ×2 (09:19→17:21)
[2019-10-04] MEDS: lisinopriL 5 MG TABLET PO SCH (09:19)
[2019-10-04] MEDS: allopurinoL 100 MG TABLET PO SCH ×2 (09:19→20:29)
[2019-10-04] MEDS: (Diclofenac Sodium [Voltaren] 1 APPL) TP SCH (09:22)
[2019-10-04] MEDS ORDERED: *HR* Warfarin 4 MG TABLET PO ONE (18:00)
[2019-10-05 01:35] LABS: Hemoglobin 12.5 g/dL (12.9-16.9); Mean Corpuscular HGB Conc 33.8 g/dL (31.6-35.5); Mean Corpuscular Hemoglobin 36.3 pg (28.0-33.3); Mean Corpuscular Volume 107.6 fL (83.0-100.0); Mean Platelet Volume 11.3 fL (9.4-12.4); Platelet Count 118 K/mcL (140-400); Red Blood Count 3.44 M/mcL (4.19-5.50); Red Cell Distribution Width 13.3 % (11.5-14.5)
[2019-10-05 01:40] LABS: Prothrombin Time 22.6 Seconds (9.4-12.1)
[2019-10-05 01:57] LABS: Calcium 9.4 mg/dL (8.6-10.3); Magnesium 1.8 mg/dL (1.6-2.6); Potassium 3.8 mEq/L (3.5-5.1)
[2019-10-05 06:58] VITALS: BP 119/45
[2019-10-05] MEDS: Aspirin Enteric Coated 81 MG Tablet PO SCH (08:09)
[2019-10-05] MEDS: allopurinoL 100 MG TABLET PO SCH (08:09)
[2019-10-05] MEDS: Cholecalciferol (D-3) 1,000 UNIT (25MCG) TABLET PO SCH (08:09)
[2019-10-05] MEDS: Furosemide 40 MG/4 ML VIAL IVP SCH (08:09)
[2019-10-05] MEDS: Cyanocobalamin (B-12) 1,000 MCG TABLET PO SCH (08:09)
[2019-10-05] MEDS: Magnesium Oxide 400 MG TABLET PO SCH (08:09)
[2019-10-05] MEDS: (Diclofenac Sodium [Voltaren] 1 APPL) TP SCH (08:10)
[2019-10-05] MEDS: lisinopriL 5 MG TABLET PO SCH (08:10)
== END 2019-10-05 11:10 | disposition home or self-care (01) ==
LOC: EMEROOARM 14:44 → 2ANU 14:44 → SUATTDRO 19:40 → 2ANU 20:14
PROVIDERS: ADMIT Family Medicine; ATTEND Internal Medicine

== ENCOUNTER 2020-02-05 09:45 | Observation (INO) ==
[2020-02-05 10:18] LABS: Basophils % 0.3 %; Eosinophils # 0.3 K/mcL (0.0-0.6); Eosinophils % 2.6 %; Hematocrit 38.2 % (37.5-50.1); Immature Granulocytes % 1.7 % (0-4); Lymphocytes # 1.5 K/mcL (0.6-4.6); Lymphocytes % 13.8 %; Mean Corpuscular Hemoglobin 36.7 pg (28.0-33.3); Mean Corpuscular Volume 107.9 fL (83.0-100.0); Monocytes % 9.1 %; Neutrophils # 7.7 K/mcL (1.6-8.9); Platelet Count 223 K/mcL (140-400); Red Blood Count 3.54 M/mcL (4.19-5.50); Red Cell Distribution Width 13.1 % (11.5-14.5); Segmented Neutrophils % 72.5 %; White Blood Count 10.6 K/mcL (4.3-11.1)
[2020-02-05 10:20] LABS: INR 1.8; Prothrombin Time 20.9 Seconds (9.4-12.1)
[2020-02-05 10:37] LABS: Albumin 3.2 g/dL (3.5-5.7); Albumin/Globulin Ratio 1.2 (1.1-2.2); Bilirubin,Direct 0.3 mg/dL (0.0-0.2); Bilirubin,Total 1.3 mg/dL (0.3-1.0); Calcium 9.4 mg/dL (8.6-10.3); Globulin 2.6 g/dL (2.4-3.5); Potassium 3.9 mEq/L (3.5-5.1); Total Protein 5.8 g/dL (6.4-8.9); Troponin I 0.03 ng/mL (< 0.04)
[2020-02-05] MEDS ORDERED: *HR* Enoxaparin 30 MG/0.3 ML SYRINGE IVP ONE (11:00)
[2020-02-05] MEDS ORDERED: *HR* Enoxaparin 120 MG/0.8 ML SYRINGE SQ STA (11:49)
[2020-02-05] MEDS ORDERED: Dexamethasone 4 MG/ML VIAL IVP ONE (11:59)
[2020-02-05] MEDS ORDERED: Ondansetron 4 MG/2 ML VIAL IVP PRN (13:19)
[2020-02-05] MEDS ORDERED: Naloxone 0.4 MG/ML INJ IVP PRN (13:19)
[2020-02-05] MEDS ORDERED: Acetaminophen 325 MG TABLET PO PRN (13:19)
[2020-02-05] MEDS ORDERED: Warfarin perPT PO PRN (18:00)
[2020-02-05] MEDS ORDERED: *HR* Warfarin 4 MG TABLET PO ONE (18:00)
[2020-02-05] MEDS: Bumetanide 1 MG TABLET PO SCH (18:36)
[2020-02-06 06:30] LABS: Basophils % 0.1 %; Hematocrit 35.3 % (37.5-50.1); Hemoglobin 12.1 g/dL (12.9-16.9); Immature Granulocytes % 1.2 % (0-4); Lymphocytes % 9.6 %; Mean Corpuscular HGB Conc 34.3 g/dL (31.6-35.5); Mean Corpuscular Volume 105.1 fL (83.0-100.0); Mean Platelet Volume 11.2 fL (9.4-12.4); Monocytes # 0.6 K/mcL (0.0-1.3); Monocytes % 5.9 %; Platelet Count 217 K/mcL (140-400); Red Blood Count 3.36 M/mcL (4.19-5.50); Red Cell Distribution Width 12.8 % (11.5-14.5); Segmented Neutrophils % 83.2 %; White Blood Count 10.8 K/mcL (4.3-11.1)
[2020-02-06 06:36] LABS: INR 2.2; Prothrombin Time 24.9 Seconds (9.4-12.1)
[2020-02-06 06:46] LABS: Calcium 9.3 mg/dL (8.6-10.3); Chol/HDL Ratio 3.3 (0-4.9); Magnesium 1.8 mg/dL (1.6-2.6); Phosphorous 2.9 mg/dL (2.7-4.5); Potassium 4.4 mEq/L (3.5-5.1)
[2020-02-06] MEDS ORDERED: Dexamethasone 4 MG/ML VIAL IVP SCH (09:00)
[2020-02-06] MEDS: Bumetanide 1 MG TABLET PO SCH (10:25)
[2020-02-06 12:07] VITALS: BP 147/63
== END 2020-02-06 15:05 | disposition home or self-care (01) ==
LOC: EMEROOARM 09:45 → 2NENU 09:45
PROVIDERS: ADMIT Internal Medicine; ATTEND Internal Medicine

== ENCOUNTER 2020-02-16 15:07 | Inpatient (IN) ==
[2020-02-16 15:38] LABS: Bilirubin,Urine Negative (Negative); Blood,Urine Negative (Negative); Clarity,Urine Clear (Clear); Color,Urine Light-Yellow (Yellow); Glucose,Urine (UA) Normal (Normal); Ketones,Urine Negative (Negative); Leukocyte Esterase,Urine Negative (Negative); Nitrite,Urine Negative (Negative); PH,Urine 6.5 pH Units (5.0-8.0); Protein,Urine Negative (Neg-Trace); Specific Gravity,Urine 1.011 (1.010-1.025); Urobilinogen,Urine Normal (Normal)
[2020-02-16 15:39] LABS: Basophils % 0.1 %; Eosinophils % 0.1 %; INR 1.9; Prothrombin Time 21.2 Seconds (9.4-12.1)
[2020-02-16 15:40] LABS: Hematocrit 38.7 % (37.5-50.1); Hemoglobin 13.2 g/dL (12.9-16.9); Lymphocytes # 0.9 K/mcL (0.6-4.6); Lymphocytes % 2.8 %; Mean Corpuscular HGB Conc 34.1 g/dL (31.6-35.5); Mean Corpuscular Hemoglobin 36.5 pg (28.0-33.3); Mean Corpuscular Volume 106.9 fL (83.0-100.0); Mean Platelet Volume 11.9 fL (9.4-12.4); Monocytes # 1.4 K/mcL (0.0-1.3); Monocytes % 4.2 %; Neutrophils # 30.3 K/mcL (1.6-8.9); Platelet Count 105 K/mcL (140-400); Red Blood Count 3.62 M/mcL (4.19-5.50); Red Cell Distribution Width 12.9 % (11.5-14.5); Segmented Neutrophils % 90.8 %
[2020-02-16 15:51] LABS: White Blood Count 33.4 K/mcL (4.3-11.1)
[2020-02-16 15:55] LABS: Albumin 2.8 g/dL (3.5-5.7); Albumin/Globulin Ratio 1.3 (1.1-2.2); Bilirubin,Total 1.5 mg/dL (0.3-1.0); Globulin 2.2 g/dL (2.4-3.5); Potassium 4.2 mEq/L (3.5-5.1)
[2020-02-16 15:59] LABS: Troponin I 0.06 ng/mL (< 0.04)
[2020-02-16] MEDS ORDERED: Piperacillin/Tazobactam 3.375 GM in 0.9 % Sodium Chloride Mini Bag 100 ML IVPB ONE (16:00)
[2020-02-16] MEDS ORDERED: levoFLOXacin 500 MG/100 ML 500 MG/100 ML BAG IVPB ONE (16:00)
[2020-02-16] MEDS ORDERED: Aspirin 325 MG TABLET PO ONE (16:01)
[2020-02-16 16:16] LABS: Macrocytosis Present (Not Present); Platelet Estimate Decreased (Normal); Polychromasia 1+ (Not Present)
[2020-02-16] MEDS ORDERED: 0.9 % Sodium Chloride 500 ML ONE (16:38)
[2020-02-16] MEDS ORDERED: 0.9 % Sodium Chloride 500 ML IVC ONE (16:45)
[2020-02-16] MEDS ORDERED: Naloxone 0.4 MG/ML INJ IVP PRN (16:46)
[2020-02-16] MEDS ORDERED: Ondansetron 4 MG/2 ML VIAL IVP PRN (16:46)
[2020-02-16] MEDS ORDERED: Vancomycin 1,000 MG, 0.9 % Sodium Chloride 1,000 ML IR ONE (16:57)
[2020-02-16] MEDS ORDERED: 0.9 % Sodium Chloride 1,000 ML IVC SCH (17:15)
[2020-02-16 17:18] LABS: Magnesium 1.9 mg/dL (1.6-2.6)
[2020-02-16] MEDS ORDERED: 0.9 % Sodium Chloride 2,000 ML IVC SCH (17:30)
[2020-02-16] MEDS ORDERED: *HR* Dextrose 50 % in Water (Vial) 50 ML VIAL IVP PRN (17:49)
[2020-02-16] MEDS ORDERED: Dextrose Gel 15 GM/37.5 ML TUBE PO PRN ×2 (17:49)
[2020-02-16] MEDS ORDERED: D5% in Water 1,000 ML IVC PRN (17:49)
[2020-02-16] MEDS ORDERED: Warfarin perPT PO PRN (18:00)
[2020-02-16] MEDS ORDERED: Vancomycin 2,000 MG/520 ML IV.SOLN IVPB SCH (18:00)
[2020-02-16 18:14] LABS: ABG Base Excess 7 mEq/L (-2 to 3); ABG HCO3 29 mEq/L (21-27); ABG Oxygen Saturation 97 % (95-98); ABG PCO2 32 mmHg (35-45); ABG PH 7.56 pH Units (7.32-7.45); ABG PO2 79 mmHg (85-104); ABG TCO2 30 mEq/L (20-26)
[2020-02-16 18:33] LABS: Thyroid Stimulating Hormone 1.702 mcIU/mL (0.340-5.600)
[2020-02-16] MEDS: Insulin LISPRO 300 UNITS/3 ML VIAL SUBQ SCH (18:33)
[2020-02-16] MEDS ORDERED: *HR* Warfarin 0.5 MG TABLET PO ONE (19:00)
[2020-02-16] MEDS: Piperacillin/Tazobactam 3.375 GM in 0.9 % Sodium Chloride Mini Bag 100 ML IVPB SCH (20:45)
[2020-02-16] MEDS: *HR* Heparin 5,000 UNIT/ML VIAL SQ SCH (20:47)
[2020-02-16] MEDS: Budesonide/Formoterol 80/4.5 1 PUFF INH IH SCH (22:04)
[2020-02-17] MEDS: Insulin LISPRO 300 UNITS/3 ML VIAL SUBQ SCH ×4 (02:07→19:15)
[2020-02-17] MEDS: Piperacillin/Tazobactam 3.375 GM in 0.9 % Sodium Chloride Mini Bag 100 ML IVPB SCH ×3 (03:06→17:12)
[2020-02-17 04:23] LABS: INR 1.7; Prothrombin Time 18.9 Seconds (9.4-12.1)
[2020-02-17 04:36] LABS: Albumin 2.6 g/dL (3.5-5.7); Albumin/Globulin Ratio 1.3 (1.1-2.2); Bilirubin,Total 1.4 mg/dL (0.3-1.0); Calcium 8.5 mg/dL (8.6-10.3); Potassium 4.5 mEq/L (3.5-5.1); Total Protein 4.6 g/dL (6.4-8.9)
[2020-02-17 06:56] LABS: Acinetobacter baumannii by PCR Not Detected (Not Detect); Candida albicans by PCR Not Detected (Not Detect); Candida glabrata by PCR Not Detected (Not Detect); Candida krusei by PCR Not Detected (Not Detect); Candida parapsilosis by PCR Not Detected (Not Detect); Candida tropicalis by PCR Not Detected (Not Detect); Enterobacter cloacae Cmplx PCR Not Detected (Not Detect); Enterobacteriaceae by PCR Not Detected (Not Detect); Enterococcus by PCR DETECTED (Not Detect); Escherichia coli by PCR Not Detected (Not Detect); Klebsiella oxytoca by PCR Not Detected (Not Detect); Klebsiella pneumoniae by PCR Not Detected (Not Detect); Proteus by PCR Not Detected (Not Detect); Pseudomonas aeruginosa by PCR Not Detected (Not Detect); Serratia marcescens by PCR Not Detected (Not Detect); Staphylococcus aureus by PCR Not Detected (Not Detect); Staphylococcus by PCR Not Detected (Not Detect); Streptococcus agalactiae(B)PCR Not Detected (Not Detect); Streptococcus by PCR Not Detected (Not Detect); Streptococcus pneumoniae PCR Not Detected (Not Detect); Streptococcus pyogenes (A) PCR Not Detected (Not Detect); vanA/B Vancomycin-Resist Genes Not Detected (Not Detect)
[2020-02-17] MEDS: *HR* Heparin 5,000 UNIT/ML VIAL SQ SCH (07:00)
[2020-02-17] MEDS ORDERED: *HR* Heparin 5,000 UNIT/ML VIAL IVP ONE (07:50)
[2020-02-17] MEDS ORDERED: *HR* Heparin 5,000 UNIT/ML VIAL IVP PRN ×2 (07:50)
[2020-02-17 08:00] LABS: Red Cell Distribution Width 12.9 % (11.5-14.5)
[2020-02-17 08:02] LABS: Hematocrit 35.9 % (37.5-50.1); Immature Platelets 7.5 % (1.1-6.1); Mean Corpuscular HGB Conc 33.4 g/dL (31.6-35.5); Mean Corpuscular Volume 107.8 fL (83.0-100.0); Mean Platelet Volume 12.6 fL (9.4-12.4); Red Blood Count 3.33 M/mcL (4.19-5.50); White Blood Count 27.7 K/mcL (4.3-11.1)
[2020-02-17 08:32] LABS: Platelet Count 78 K/mcL (140-400)
[2020-02-17 08:33] LABS: Lymphocytes # 1.7 K/mcL (0.6-4.6); Monocytes # 1.1 K/mcL (0.0-1.3); Neutrophils # 24.9 K/mcL (1.6-8.9)
[2020-02-17 08:34] LABS: Platelet Estimate Slight Decrease (Normal)
[2020-02-17] MEDS: lisinopriL 5 MG TABLET PO SCH (10:24)
[2020-02-17] MEDS: Aspirin Enteric Coated 81 MG Tablet PO SCH (10:25)
[2020-02-17] MEDS ORDERED: Perflutren Lipid Microsphere 1.3 ML in 0.9 % Sodium Chloride 8.7 ML IVP PRN ×2 (10:32→12:09)
[2020-02-17] MEDS: Budesonide/Formoterol 80/4.5 1 PUFF INH IH SCH ×2 (10:34→20:19)
[2020-02-17] MEDS: 0.9 % Sodium Chloride 1,000 ML IVC SCH ×2 (11:40→16:13)
[2020-02-17 11:50] LABS: Hematocrit 37.9 % (37.5-50.1); Hemoglobin 12.6 g/dL (12.9-16.9); Mean Corpuscular HGB Conc 33.2 g/dL (31.6-35.5); Mean Corpuscular Volume 108.3 fL (83.0-100.0); Mean Platelet Volume 11.8 fL (9.4-12.4); Platelet Count 94 K/mcL (140-400); Red Cell Distribution Width 13.1 % (11.5-14.5); White Blood Count 24.7 K/mcL (4.3-11.1)
[2020-02-17 11:55] LABS: Heparin anti-factor XA UFH < 0.04 IU/mL (0.30-0.70)
[2020-02-17 11:56] LABS: INR 1.5; Prothrombin Time 16.9 Seconds (9.4-12.1)
[2020-02-17] MEDS: Albumin Human 5% 12.5 GM/250 ML IV.SOLN IVC SCH ×2 (12:42→16:10)
[2020-02-17] MEDS ORDERED: *HR* Heparin 5,000 UNIT/ML VIAL SQ SCH (14:15)
[2020-02-17] MEDS: Heparin 25,000UNIT/250ML 1/2NS 25,000 UNIT/250 ML IV.SOLN IVC SCH ×2 (15:41→17:42)
[2020-02-17] MEDS ORDERED: 0.9 % Sodium Chloride 1,000 ML ONE (15:55)
[2020-02-17] MEDS: Pantoprazole 40 MG VIAL IVP SCH (16:05)
[2020-02-17] MEDS: Dexamethasone 4 MG/ML VIAL IVP SCH (16:06)
[2020-02-17 16:37] LABS: D-Dimer 1101 ng/mLFEU (0-500)
[2020-02-17 17:04] LABS: Heparin anti-factor XA UFH < 0.04 IU/mL (0.30-0.70)
[2020-02-17] MEDS: Vancomycin 2,000 MG/520 ML IV.SOLN IVPB SCH (22:01)
[2020-02-18 03:57] LABS: Basophils % 0.1 %; Hemoglobin 11.2 g/dL (12.9-16.9)
[2020-02-18 03:59] LABS: Hematocrit 33.7 % (37.5-50.1); Immature Granulocytes % 1.4 % (0-4); Immature Platelets 5.9 % (1.1-6.1); Lymphocytes # 0.8 K/mcL (0.6-4.6); Lymphocytes % 4.5 %; Mean Corpuscular HGB Conc 33.2 g/dL (31.6-35.5); Mean Corpuscular Hemoglobin 35.4 pg (28.0-33.3); Mean Corpuscular Volume 106.6 fL (83.0-100.0); Mean Platelet Volume 12.5 fL (9.4-12.4); Monocytes # 0.3 K/mcL (0.0-1.3); Monocytes % 1.8 %; Neutrophils # 16.3 K/mcL (1.6-8.9); Red Blood Count 3.16 M/mcL (4.19-5.50); Red Cell Distribution Width 12.9 % (11.5-14.5); Segmented Neutrophils % 92.2 %; White Blood Count 17.7 K/mcL (4.3-11.1)
[2020-02-18 04:01] LABS: Fibrinogen 331 mg/dL (169-393)
[2020-02-18 04:03] LABS: D-Dimer 808 ng/mLFEU (0-500)
[2020-02-18 04:05] LABS: Platelet Count 70 K/mcL (140-400)
[2020-02-18 04:14] LABS: Albumin 2.8 g/dL (3.5-5.7); Albumin/Globulin Ratio 1.5 (1.1-2.2); Bilirubin,Total 1.2 mg/dL (0.3-1.0); Calcium 8.3 mg/dL (8.6-10.3); Globulin 1.9 g/dL (2.4-3.5); Potassium 4.4 mEq/L (3.5-5.1); Total Protein 4.7 g/dL (6.4-8.9)
[2020-02-18] MEDS: Insulin LISPRO 300 UNITS/3 ML VIAL SUBQ SCH ×6 (06:00→21:18)
[2020-02-18] MEDS: Budesonide/Formoterol 80/4.5 1 PUFF INH IH SCH ×2 (08:45→20:12)
[2020-02-18] MEDS: Aspirin Enteric Coated 81 MG Tablet PO SCH (09:28)
[2020-02-18] MEDS: Pantoprazole 40 MG VIAL IVP SCH (09:29)
[2020-02-18] MEDS: Nystatin SUSP 5 ML UD.LIQ PO SCH ×4 (09:29→20:59)
[2020-02-18] MEDS: lisinopriL 5 MG TABLET PO SCH (09:29)
[2020-02-18] MEDS: Piperacillin/Tazobactam 3.375 GM in 0.9 % Sodium Chloride Mini Bag 100 ML IVPB SCH ×3 (09:31→17:40)
[2020-02-18] MEDS: Dexamethasone 4 MG/ML VIAL IVP SCH (09:37)
[2020-02-18] MEDS ORDERED: levoFLOXacin 750 MG/150 ML 750 MG/150 ML BAG IVPB SCH (16:00)
[2020-02-18] MEDS: Vancomycin 2,000 MG/520 ML IV.SOLN IVPB SCH (20:59)
[2020-02-18] MEDS: Heparin 25,000UNIT/250ML 1/2NS 25,000 UNIT/250 ML IV.SOLN IVC SCH (21:21)
[2020-02-18] MEDS ORDERED: 0.9 % Sodium Chloride 500 ML IVC ONE (22:56)
[2020-02-18] MEDS ORDERED: Albumin 25% 25gram/100mL 25 GM/100 ML IV.SOLN IVPB ONE (22:57)
[2020-02-19] MEDS: Piperacillin/Tazobactam 3.375 GM in 0.9 % Sodium Chloride Mini Bag 100 ML IVPB SCH ×3 (01:20→18:04)
[2020-02-19 02:39] LABS: Basophils % 0.1 %; Lymphocytes % 4.2 %
[2020-02-19 02:41] LABS: Hematocrit 28.8 % (37.5-50.1); Hemoglobin 9.9 g/dL (12.9-16.9); Immature Granulocytes % 1.7 % (0-4); Immature Platelets 6.8 % (1.1-6.1); Lymphocytes # 0.9 K/mcL (0.6-4.6); Mean Corpuscular HGB Conc 34.4 g/dL (31.6-35.5); Mean Corpuscular Hemoglobin 36.7 pg (28.0-33.3); Mean Corpuscular Volume 106.7 fL (83.0-100.0); Mean Platelet Volume 12.5 fL (9.4-12.4); Neutrophils # 20.5 K/mcL (1.6-8.9); Red Cell Distribution Width 13.1 % (11.5-14.5); White Blood Count 22.3 K/mcL (4.3-11.1)
[2020-02-19 02:49] LABS: Monocytes # 0.5 K/mcL (0.0-1.3); Platelet Count 70 K/mcL (140-400)
[2020-02-19 03:00] LABS: Albumin 2.9 g/dL (3.5-5.7); Albumin/Globulin Ratio 1.6 (1.1-2.2); Bilirubin,Total 0.9 mg/dL (0.3-1.0); Calcium 8.4 mg/dL (8.6-10.3); Globulin 1.8 g/dL (2.4-3.5); Potassium 4.3 mEq/L (3.5-5.1); Total Protein 4.7 g/dL (6.4-8.9)
[2020-02-19 08:41] LABS: Fibrinogen 255 mg/dL (169-393)
[2020-02-19 08:50] LABS: D-Dimer 586 ng/mLFEU (0-500)
[2020-02-19] MEDS: Aspirin Enteric Coated 81 MG Tablet PO SCH (10:17)
[2020-02-19] MEDS: Nystatin SUSP 5 ML UD.LIQ PO SCH ×4 (10:18→19:29)
[2020-02-19] MEDS: Pantoprazole 40 MG VIAL IVP SCH (10:18)
[2020-02-19] MEDS: Dexamethasone 4 MG/ML VIAL IVP SCH (10:37)
[2020-02-19] MEDS: Insulin LISPRO 300 UNITS/3 ML VIAL SUBQ SCH ×4 (10:38→19:49)
[2020-02-19] MEDS: Budesonide/Formoterol 80/4.5 1 PUFF INH IH SCH (12:34)
[2020-02-19] MEDS ORDERED: Perflutren Lipid Microsphere 1.3 ML in 0.9 % Sodium Chloride 8.7 ML IVP PRN (14:12)
[2020-02-19] MEDS: Insulin DETEMIR 100 UNIT/ML X5UNITS SUBQ SCH (16:51)
[2020-02-19] MEDS: Ipratropium 1 PUFF INHALER IH SCH ×2 (17:46→21:36)
[2020-02-19] MEDS: *HR* Fondaparinux 7.5 MG/0.6 ML SYRINGE SQ SCH (18:05)
[2020-02-19] MEDS: *HR* Fondaparinux 2.5 MG/0.5 ML SYRINGE SQ SCH (18:05)
[2020-02-19] MEDS: Loratadine 10 MG TABLET PO SCH (19:48)
[2020-02-20] MEDS: Piperacillin/Tazobactam 3.375 GM in 0.9 % Sodium Chloride Mini Bag 100 ML IVPB SCH ×3 (01:26→17:30)
[2020-02-20] MEDS: Heparin 25,000UNIT/250ML 1/2NS 25,000 UNIT/250 ML IV.SOLN IVC SCH (01:42)
[2020-02-20 01:49] LABS: Basophils % 0.1 %; Eosinophils % 0.1 %; Hematocrit 27.3 % (37.5-50.1); Hemoglobin 9.1 g/dL (12.9-16.9); Immature Granulocytes % 1.7 % (0-4); Lymphocytes # 0.9 K/mcL (0.6-4.6); Mean Corpuscular HGB Conc 33.3 g/dL (31.6-35.5); Mean Corpuscular Hemoglobin 35.7 pg (28.0-33.3); Mean Corpuscular Volume 107.1 fL (83.0-100.0); Mean Platelet Volume 12.1 fL (9.4-12.4); Monocytes # 0.4 K/mcL (0.0-1.3); Monocytes % 2.2 %; Neutrophils # 16.4 K/mcL (1.6-8.9); Nucleated Red Blood Cells 0.1 /100 WBC (0); Red Blood Count 2.55 M/mcL (4.19-5.50); Segmented Neutrophils % 90.9 %
[2020-02-20 01:51] LABS: Platelet Count 82 K/mcL (140-400)
[2020-02-20 02:09] LABS: Calcium 8.7 mg/dL (8.6-10.3); Magnesium 2.3 mg/dL (1.6-2.6); Potassium 4.7 mEq/L (3.5-5.1)
[2020-02-20] MEDS: Ipratropium 1 PUFF INHALER IH SCH ×4 (04:29→21:37)
[2020-02-20] MEDS: Aspirin Enteric Coated 81 MG Tablet PO SCH (09:36)
[2020-02-20] MEDS: Nystatin SUSP 5 ML UD.LIQ PO SCH ×4 (09:36→21:12)
[2020-02-20] MEDS: Dexamethasone 4 MG/ML VIAL IVP SCH (09:39)
[2020-02-20] MEDS: Pantoprazole 40 MG VIAL IVP SCH (09:41)
[2020-02-20] MEDS: Insulin DETEMIR 100 UNIT/ML X5UNITS SUBQ SCH ×2 (09:42→21:21)
[2020-02-20] MEDS: Insulin LISPRO 300 UNITS/3 ML VIAL SUBQ SCH ×4 (09:43→21:16)
[2020-02-20 10:15] LABS: Estimated Average Glucose 217 mg/dl; Hemoglobin A1C 9.2 %
[2020-02-20] MEDS: *HR* Fondaparinux 2.5 MG/0.5 ML SYRINGE SQ SCH (17:26)
[2020-02-20] MEDS: *HR* Fondaparinux 7.5 MG/0.6 ML SYRINGE SQ SCH (17:27)
[2020-02-20] MEDS ORDERED: Sucralfate 1 GM TABLET PO SCH (21:00)
[2020-02-20] MEDS: Loratadine 10 MG TABLET PO SCH (21:11)
[2020-02-20] MEDS: allopurinoL 100 MG TABLET PO SCH (21:12)
[2020-02-21] MEDS: Piperacillin/Tazobactam 3.375 GM in 0.9 % Sodium Chloride Mini Bag 100 ML IVPB SCH ×2 (01:26→08:51)
[2020-02-21 02:15] LABS: Calcium 8.6 mg/dL (8.6-10.3); Magnesium 2.3 mg/dL (1.6-2.6); Potassium 4.5 mEq/L (3.5-5.1)
[2020-02-21 02:39] LABS: Basophils % 0.1 %; Immature Granulocytes % 2.5 % (0-4); Mean Corpuscular HGB Conc 33.5 g/dL (31.6-35.5); Segmented Neutrophils % 88.5 %
[2020-02-21 02:41] LABS: Eosinophils % 0.1 %; Hematocrit 25.4 % (37.5-50.1); Hemoglobin 8.5 g/dL (12.9-16.9); Immature Platelets 5.8 % (1.1-6.1); Lymphocytes # 0.9 K/mcL (0.6-4.6); Lymphocytes % 5.7 %; Mean Corpuscular Hemoglobin 35.6 pg (28.0-33.3); Mean Corpuscular Volume 106.3 fL (83.0-100.0); Mean Platelet Volume 11.5 fL (9.4-12.4); Monocytes # 0.5 K/mcL (0.0-1.3); Monocytes % 3.1 %; Nucleated Red Blood Cells 0.4 /100 WBC (0); Red Blood Count 2.39 M/mcL (4.19-5.50); Red Cell Distribution Width 12.9 % (11.5-14.5); White Blood Count 15.9 K/mcL (4.3-11.1)
[2020-02-21 02:45] LABS: Neutrophils # 14.1 K/mcL (1.6-8.9); Platelet Count 66 K/mcL (140-400)
[2020-02-21] MEDS: Ipratropium 1 PUFF INHALER IH SCH ×4 (04:16→22:46)
[2020-02-21] MEDS: Insulin DETEMIR 100 UNIT/ML X5UNITS SUBQ SCH ×2 (08:50→20:47)
[2020-02-21] MEDS: Insulin LISPRO 300 UNITS/3 ML VIAL SUBQ SCH ×4 (08:50→20:47)
[2020-02-21] MEDS: Ascorbic Acid 500 MG TABLET PO SCH (08:51)
[2020-02-21] MEDS: Pantoprazole 40 MG VIAL IVP SCH (08:52)
[2020-02-21] MEDS: Cholecalciferol (D-3) 1,000 UNIT (25MCG) TABLET PO SCH (08:52)
[2020-02-21] MEDS: Nystatin SUSP 5 ML UD.LIQ PO SCH ×4 (08:52→20:47)
[2020-02-21] MEDS: Aspirin Enteric Coated 81 MG Tablet PO SCH (08:52)
[2020-02-21] MEDS: allopurinoL 100 MG TABLET PO SCH ×2 (08:53→20:48)
[2020-02-21] MEDS ORDERED: *HR* Heparin 5,000 UNIT/ML VIAL SQ SCH (14:00)
[2020-02-21] MEDS: Bumetanide 1 MG TABLET PO SCH (14:09)
[2020-02-21 14:41] LABS: INR 1.1; Prothrombin Time 12.4 Seconds (9.4-12.1)
[2020-02-21] MEDS: Ampicillin 2 GM in 0.9 % Sodium Chloride Mini Bag 100 ML IVPB SCH ×2 (17:07→20:48)
[2020-02-21] MEDS ORDERED: *HR* Warfarin 1 MG TABLET PO ONE (18:00)
[2020-02-21] MEDS ORDERED: Warfarin perPT PO PRN (18:00)
[2020-02-21] MEDS: Loratadine 10 MG TABLET PO SCH (20:47)
[2020-02-22] MEDS: Ampicillin 2 GM in 0.9 % Sodium Chloride Mini Bag 100 ML IVPB SCH ×7 (01:08→23:41)
[2020-02-22 02:25] LABS: Hematocrit 25.6 % (37.5-50.1); Hemoglobin 8.8 g/dL (12.9-16.9); Mean Corpuscular HGB Conc 34.4 g/dL (31.6-35.5); Mean Corpuscular Hemoglobin 36.8 pg (28.0-33.3); Mean Corpuscular Volume 107.1 fL (83.0-100.0); Mean Platelet Volume 12.2 fL (9.4-12.4); Platelet Count 69 K/mcL (140-400); Red Blood Count 2.39 M/mcL (4.19-5.50); White Blood Count 13.3 K/mcL (4.3-11.1)
[2020-02-22 02:28] LABS: INR 1.1; Prothrombin Time 12.3 Seconds (9.4-12.1)
[2020-02-22] MEDS: Ipratropium 1 PUFF INHALER IH SCH ×4 (03:46→22:23)
[2020-02-22] MEDS: Aspirin Enteric Coated 81 MG Tablet PO SCH (08:23)
[2020-02-22] MEDS: Bumetanide 1 MG TABLET PO SCH (08:23)
[2020-02-22] MEDS: Nystatin SUSP 5 ML UD.LIQ PO SCH ×4 (08:23→20:32)
[2020-02-22] MEDS: Ascorbic Acid 500 MG TABLET PO SCH (08:24)
[2020-02-22] MEDS: Pantoprazole 40 MG VIAL IVP SCH (08:24)
[2020-02-22] MEDS: Cholecalciferol (D-3) 1,000 UNIT (25MCG) TABLET PO SCH (08:24)
[2020-02-22] MEDS: allopurinoL 100 MG TABLET PO SCH ×2 (08:24→20:32)
[2020-02-22] MEDS: Insulin DETEMIR 100 UNIT/ML X5UNITS SUBQ SCH ×2 (08:31→20:33)
[2020-02-22] MEDS: Insulin LISPRO 300 UNITS/3 ML VIAL SUBQ SCH ×4 (08:54→20:25)
[2020-02-22] MEDS ORDERED: *HR* Warfarin 2 MG TABLET PO ONE (18:00)
[2020-02-22] MEDS: Loratadine 10 MG TABLET PO SCH (20:32)
[2020-02-23] MEDS: Ampicillin 2 GM in 0.9 % Sodium Chloride Mini Bag 100 ML IVPB SCH ×5 (03:45→20:31)
[2020-02-23 04:16] LABS: INR 1.1; Prothrombin Time 12.5 Seconds (9.4-12.1)
[2020-02-23] MEDS: Ipratropium 1 PUFF INHALER IH SCH ×4 (04:18→22:21)
[2020-02-23] MEDS: Insulin LISPRO 300 UNITS/3 ML VIAL SUBQ SCH ×4 (07:58→20:33)
[2020-02-23] MEDS: allopurinoL 100 MG TABLET PO SCH ×2 (08:12→20:32)
[2020-02-23] MEDS: Ascorbic Acid 500 MG TABLET PO SCH (08:12)
[2020-02-23] MEDS: Cholecalciferol (D-3) 1,000 UNIT (25MCG) TABLET PO SCH (08:12)
[2020-02-23] MEDS: Bumetanide 1 MG TABLET PO SCH (08:13)
[2020-02-23] MEDS: Aspirin Enteric Coated 81 MG Tablet PO SCH (08:13)
[2020-02-23] MEDS: Pantoprazole 40 MG VIAL IVP SCH (08:20)
[2020-02-23] MEDS: Insulin DETEMIR 100 UNIT/ML X5UNITS SUBQ SCH ×2 (08:25→20:33)
[2020-02-23] MEDS: Nystatin SUSP 5 ML UD.LIQ PO SCH ×4 (08:26→20:32)
[2020-02-23] MEDS ORDERED: *HR* Warfarin 1 MG TABLET PO ONE (18:00)
[2020-02-23] MEDS: Loratadine 10 MG TABLET PO SCH (20:32)
[2020-02-24] MEDS: Ampicillin 2 GM in 0.9 % Sodium Chloride Mini Bag 100 ML IVPB SCH ×7 (00:19→23:32)
[2020-02-24] MEDS: Ipratropium 1 PUFF INHALER IH SCH ×4 (03:54→21:30)
[2020-02-24 05:22] LABS: Hematocrit 28.3 % (37.5-50.1); Hemoglobin 9.4 g/dL (12.9-16.9); Mean Corpuscular HGB Conc 33.2 g/dL (31.6-35.5); Mean Corpuscular Hemoglobin 35.7 pg (28.0-33.3); Mean Corpuscular Volume 107.6 fL (83.0-100.0); Mean Platelet Volume 10.8 fL (9.4-12.4); Red Blood Count 2.63 M/mcL (4.19-5.50); Red Cell Distribution Width 13.3 % (11.5-14.5); White Blood Count 8.8 K/mcL (4.3-11.1)
[2020-02-24 05:28] LABS: INR 1.1; Prothrombin Time 12.8 Seconds (9.4-12.1)
[2020-02-24 05:42] LABS: BUN/Creatinine Ratio 23 (6-26); Blood Urea Nitrogen 31 mg/dL (8-23); Calcium 8.5 mg/dL (8.6-10.3); Carbon Dioxide 28 mEq/L (23-29); Chloride 98 mEq/L (98-107); Glucose 131 mg/dL (70-105); Osmolality,Calculated 284 (280-300); Potassium 3.7 mEq/L (3.5-5.1); Sodium 133 mEq/L (136-145); eGFR For African Americans > 60 (> 60); eGFR For Non-African Americans 51 (> 60)
[2020-02-24] MEDS: allopurinoL 100 MG TABLET PO SCH ×2 (10:02→20:38)
[2020-02-24] MEDS: Lactobacillus 1 EACH CAP.SPRINK PO SCH ×2 (10:02→20:38)
[2020-02-24] MEDS: Ascorbic Acid 500 MG TABLET PO SCH (10:02)
[2020-02-24] MEDS: Bumetanide 1 MG TABLET PO SCH (10:02)
[2020-02-24] MEDS: Cholecalciferol (D-3) 1,000 UNIT (25MCG) TABLET PO SCH (10:03)
[2020-02-24] MEDS: Pantoprazole 40 MG VIAL IVP SCH (10:03)
[2020-02-24] MEDS: Aspirin Enteric Coated 81 MG Tablet PO SCH (10:03)
[2020-02-24] MEDS: Insulin LISPRO 300 UNITS/3 ML VIAL SUBQ SCH ×4 (10:03→20:37)
[2020-02-24] MEDS: Nystatin SUSP 5 ML UD.LIQ PO SCH ×4 (10:03→20:39)
[2020-02-24] MEDS: Insulin DETEMIR 100 UNIT/ML X5UNITS SUBQ SCH ×2 (10:08→20:37)
[2020-02-24] MEDS ORDERED: *HR* Warfarin 3 MG TABLET PO ONE (18:00)
[2020-02-24] MEDS: polyethylene glycoL 3350 17 GM POWD.PACK PO SCH (19:04)
[2020-02-24] MEDS: Loratadine 10 MG TABLET PO SCH (20:38)
[2020-02-25] MEDS: Ampicillin 2 GM in 0.9 % Sodium Chloride Mini Bag 100 ML IVPB SCH ×6 (04:03→23:13)
[2020-02-25] MEDS: Ipratropium 1 PUFF INHALER IH SCH ×4 (04:09→21:37)
[2020-02-25 05:35] LABS: INR 1.1; Prothrombin Time 12.8 Seconds (9.4-12.1)
[2020-02-25] MEDS: Insulin LISPRO 300 UNITS/3 ML VIAL SUBQ SCH ×4 (08:43→23:05)
[2020-02-25] MEDS: allopurinoL 100 MG TABLET PO SCH ×2 (09:52→20:11)
[2020-02-25] MEDS: Cholecalciferol (D-3) 1,000 UNIT (25MCG) TABLET PO SCH (09:52)
[2020-02-25] MEDS: Aspirin Enteric Coated 81 MG Tablet PO SCH (09:52)
[2020-02-25] MEDS: Ascorbic Acid 500 MG TABLET PO SCH (09:52)
[2020-02-25] MEDS: Nystatin SUSP 5 ML UD.LIQ PO SCH ×4 (09:52→20:10)
[2020-02-25] MEDS: Bumetanide 1 MG TABLET PO SCH (09:53)
[2020-02-25] MEDS: polyethylene glycoL 3350 17 GM POWD.PACK PO SCH (09:53)
[2020-02-25] MEDS: Lactobacillus 1 EACH CAP.SPRINK PO SCH ×2 (09:53→20:11)
[2020-02-25] MEDS: Insulin DETEMIR 100 UNIT/ML X5UNITS SUBQ SCH ×2 (09:57→20:10)
[2020-02-25] MEDS: Apixaban 5 MG TABLET PO SCH ×2 (15:12→20:10)
[2020-02-25] MEDS ORDERED: *HR* Warfarin 3 MG TABLET PO ONE (18:00)
[2020-02-25] MEDS: Loratadine 10 MG TABLET PO SCH (20:10)
[2020-02-26] MEDS: Ipratropium 1 PUFF INHALER IH SCH ×4 (04:15→21:35)
[2020-02-26 04:28] LABS: Hemoglobin 9.7 g/dL (12.9-16.9)
[2020-02-26 04:30] LABS: Hematocrit 29.5 % (37.5-50.1); Immature Platelets 2.8 % (1.1-6.1); Mean Corpuscular HGB Conc 32.9 g/dL (31.6-35.5); Mean Corpuscular Hemoglobin 36.5 pg (28.0-33.3); Mean Corpuscular Volume 110.9 fL (83.0-100.0); Mean Platelet Volume 11.3 fL (9.4-12.4); Red Blood Count 2.66 M/mcL (4.19-5.50); Red Cell Distribution Width 13.4 % (11.5-14.5); White Blood Count 7.9 K/mcL (4.3-11.1)
[2020-02-26 04:52] LABS: INR 1.9; Prothrombin Time 21.5 Seconds (9.4-12.1)
[2020-02-26] MEDS: Ampicillin 2 GM in 0.9 % Sodium Chloride Mini Bag 100 ML IVPB SCH ×5 (05:24→20:47)
[2020-02-26] MEDS: Apixaban 5 MG TABLET PO SCH ×2 (10:00→20:49)
[2020-02-26] MEDS: Ascorbic Acid 500 MG TABLET PO SCH (10:00)
[2020-02-26] MEDS: Lactobacillus 1 EACH CAP.SPRINK PO SCH ×2 (10:01→20:49)
[2020-02-26] MEDS: Nystatin SUSP 5 ML UD.LIQ PO SCH ×4 (10:01→20:49)
[2020-02-26] MEDS: polyethylene glycoL 3350 17 GM POWD.PACK PO SCH (10:01)
[2020-02-26] MEDS: Aspirin Enteric Coated 81 MG Tablet PO SCH (10:01)
[2020-02-26] MEDS: Bumetanide 1 MG TABLET PO SCH (10:01)
[2020-02-26] MEDS: Cholecalciferol (D-3) 1,000 UNIT (25MCG) TABLET PO SCH (10:01)
[2020-02-26] MEDS: allopurinoL 100 MG TABLET PO SCH ×2 (10:01→20:49)
[2020-02-26] MEDS: Insulin DETEMIR 100 UNIT/ML X5UNITS SUBQ SCH ×2 (10:02→20:48)
[2020-02-26] MEDS: Insulin LISPRO 300 UNITS/3 ML VIAL SUBQ SCH ×4 (10:03→20:51)
[2020-02-26] MEDS: Loratadine 10 MG TABLET PO SCH (20:52)
[2020-02-27] MEDS: Ampicillin 2 GM in 0.9 % Sodium Chloride Mini Bag 100 ML IVPB SCH ×3 (00:22→08:26)
[2020-02-27 03:16] LABS: Red Cell Distribution Width 13.5 % (11.5-14.5)
[2020-02-27 03:17] LABS: INR 2.3; Prothrombin Time 25.6 Seconds (9.4-12.1)
[2020-02-27 03:18] LABS: Hematocrit 27.8 % (37.5-50.1); Hemoglobin 9.1 g/dL (12.9-16.9); Immature Platelets 4.3 % (1.1-6.1); Mean Corpuscular HGB Conc 32.7 g/dL (31.6-35.5); Mean Corpuscular Hemoglobin 34.7 pg (28.0-33.3); Mean Corpuscular Volume 106.1 fL (83.0-100.0); Mean Platelet Volume 10.9 fL (9.4-12.4); Red Blood Count 2.62 M/mcL (4.19-5.50); White Blood Count 7.1 K/mcL (4.3-11.1)
[2020-02-27] MEDS: Ipratropium 1 PUFF INHALER IH SCH ×2 (03:23→10:06)
[2020-02-27] MEDS: Insulin LISPRO 300 UNITS/3 ML VIAL SUBQ SCH ×2 (07:54→11:57)
[2020-02-27] MEDS: Nystatin SUSP 5 ML UD.LIQ PO SCH ×2 (07:55→11:59)
[2020-02-27] MEDS: Cholecalciferol (D-3) 1,000 UNIT (25MCG) TABLET PO SCH (07:55)
[2020-02-27] MEDS: Lactobacillus 1 EACH CAP.SPRINK PO SCH (07:55)
[2020-02-27] MEDS: Aspirin Enteric Coated 81 MG Tablet PO SCH (07:55)
[2020-02-27] MEDS: Bumetanide 1 MG TABLET PO SCH (07:55)
[2020-02-27] MEDS: allopurinoL 100 MG TABLET PO SCH (07:55)
[2020-02-27] MEDS: Ascorbic Acid 500 MG TABLET PO SCH (07:56)
[2020-02-27] MEDS: Apixaban 5 MG TABLET PO SCH (07:56)
[2020-02-27] MEDS: polyethylene glycoL 3350 17 GM POWD.PACK PO SCH (07:58)
[2020-02-27] MEDS: Insulin DETEMIR 100 UNIT/ML X5UNITS SUBQ SCH (08:46)
[2020-02-27 10:20] VITALS: BP 132/83
[2020-03-03] MEDS ORDERED: Apixaban 5 MG TABLET PO SCH (09:00)
== END 2020-02-27 14:05 | DRG 871 ==
LOC: EMEROOARM 15:07 → 2NENU 15:07 → SUATTDRO 17:40 → 3BNU 02-21 15:51
PROVIDERS: ADMIT Student in an Organized Health Care Education/Training Program; ATTEND Internal Medicine

== ENCOUNTER 2020-03-19 13:34 | Inpatient (IN) ==
[2020-03-19] MEDS ORDERED: 0.9 % Sodium Chloride 250 ML IVC ONE (13:46)
[2020-03-19 14:14] LABS: Hematocrit 42.1 % (37.5-50.1); Hemoglobin 12.5 g/dL (12.9-16.9); Immature Platelets 9.7 % (1.1-6.1); Mean Corpuscular HGB Conc 29.7 g/dL (31.6-35.5); Mean Corpuscular Volume 111.1 fL (83.0-100.0); Nucleated Red Blood Cells 0.1 /100 WBC (0); Red Blood Count 3.79 M/mcL (4.19-5.50); Red Cell Distribution Width 16.2 % (11.5-14.5); White Blood Count 18.3 K/mcL (4.3-11.1)
[2020-03-19 14:16] LABS: Platelet Count 63 K/mcL (140-400)
[2020-03-19] MEDS ORDERED: 0.9 % Sodium Chloride 1,000 ML IVC ONE (14:36)
[2020-03-19 14:45] LABS: Albumin 2.1 g/dL (3.5-5.7); Albumin/Globulin Ratio 0.6 (1.1-2.2); Calcium 10.5 mg/dL (8.6-10.3); Globulin 3.7 g/dL (2.4-3.5); Potassium 3.6 mEq/L (3.5-5.1); Total Protein 5.8 g/dL (6.4-8.9); Troponin I 0.09 ng/mL (< 0.04)
[2020-03-19 15:14] LABS: Lymphocytes # 1.8 K/mcL (0.6-4.6); Monocytes # 1.1 K/mcL (0.0-1.3); Neutrophils # 15.4 K/mcL (1.6-8.9); Platelet Estimate Marked Decrease (Normal); Toxic Granulation Present (Not Present)
[2020-03-19 15:15] LABS: Poikilocytosis 1+ (Not Present); Reactive Lymphocytes Present (Not Present)
[2020-03-19] MEDS ORDERED: cefTRIAXone 1,000 MG in 0.9 % Sodium Chloride Mini Bag 100 ML IVPB ONE (15:57)
[2020-03-19] MEDS ORDERED: *HR* LORazepam 2 MG/ML VIAL IVP ONE (17:38)
[2020-03-19 18:36] LABS: Bilirubin,Urine Negative (Negative); Blood,Urine Negative (Negative); Clarity,Urine Clear (Clear); Color,Urine Yellow (Yellow); Glucose,Urine (UA) Normal (Normal); Ketones,Urine Negative (Negative); Leukocyte Esterase,Urine Negative (Negative); Nitrite,Urine Negative (Negative); Protein,Urine Negative (Neg-Trace); Specific Gravity,Urine 1.018 (1.010-1.025); Urobilinogen,Urine Normal (Normal)
[2020-03-19] MEDS ORDERED: 0.9 % Sodium Chloride 1,000 ML ONE (21:38)
[2020-03-19] MEDS ORDERED: Ampicillin 2 GM in 0.9 % Sodium Chloride Mini Bag 100 ML IVPB ONE (22:00)
[2020-03-19] MEDS: 0.9 % Sodium Chloride 1,000 ML IVC ONE (22:19)
[2020-03-19 22:38] LABS: ABG Base Excess 2 mEq/L (-2 to 3); ABG HCO3 26 mEq/L (21-27); ABG Oxygen Saturation 98 % (95-98); ABG PCO2 36 mmHg (35-45); ABG PH 7.46 pH Units (7.32-7.45); ABG PO2 104 mmHg (85-104); ABG TCO2 27 mEq/L (20-26); Blood Gas Pressure Support 6 cm H2O
[2020-03-20] MEDS: 0.9 % Sodium Chloride 1,000 ML IVC ONE (00:10)
[2020-03-20] MEDS ORDERED: Naloxone 0.4 MG/ML INJ IVP PRN ×2 (00:48→12:54)
[2020-03-20 01:42] LABS: Nucleated Red Blood Cells 0.1 /100 WBC (0); Red Blood Count 3.77 M/mcL (4.19-5.50)
[2020-03-20 01:44] LABS: Hematocrit 42.6 % (37.5-50.1); Hemoglobin 12.9 g/dL (12.9-16.9); Mean Corpuscular HGB Conc 30.3 g/dL (31.6-35.5); Mean Corpuscular Hemoglobin 34.2 pg (28.0-33.3); Red Cell Distribution Width 16.6 % (11.5-14.5)
[2020-03-20 01:50] LABS: INR 1.8; Prothrombin Time 20.4 Seconds (9.4-12.1)
[2020-03-20 01:56] LABS: Platelet Count 70 K/mcL (140-400)
[2020-03-20 01:58] LABS: White Blood Count 35.1 K/mcL (4.3-11.1)
[2020-03-20 02:02] LABS: Potassium 3.9 mEq/L (3.5-5.1)
[2020-03-20 02:30] LABS: Lymphocytes # 2.1 K/mcL (0.6-4.6); Monocytes # 0.7 K/mcL (0.0-1.3); Neutrophils # 32.3 K/mcL (1.6-8.9)
[2020-03-20 02:31] LABS: Anisocytosis 1+ (Not Present); Toxic Granulation Present (Not Present)
[2020-03-20 02:32] LABS: Platelet Estimate Decreased (Normal); Reactive Lymphocytes Present (Not Present)
[2020-03-20] MEDS ORDERED: 0.9 % Sodium Chloride 1,000 ML IVC ONE ×2 (02:36→04:48)
[2020-03-20] MEDS ORDERED: 0.9 % Sodium Chloride 1,000 ML ONE (02:39)
[2020-03-20] MEDS ORDERED: Vancomycin 1,750 MG in 0.9 % Sodium Chloride 250 ML IVPB SCH (03:00)
[2020-03-20] MEDS ORDERED: Vancomycin 1,750 MG/517.5 ML IV.SOLN IVPB ONE (03:00)
[2020-03-20] MEDS ORDERED: D5% in Water 1,000 ML IVC PRN (03:11)
[2020-03-20] MEDS ORDERED: *HR* Dextrose 50 % in Water (Vial) 50 ML VIAL IVP PRN (03:11)
[2020-03-20] MEDS ORDERED: Dextrose Gel 15 GM/37.5 ML TUBE PO PRN ×2 (03:11)
[2020-03-20 06:19] LABS: Hematocrit 42.8 % (37.5-50.1); Hemoglobin 12.6 g/dL (12.9-16.9); Immature Platelets 12.5 % (1.1-6.1); Mean Corpuscular HGB Conc 29.4 g/dL (31.6-35.5); Mean Corpuscular Hemoglobin 33.2 pg (28.0-33.3); Mean Corpuscular Volume 112.9 fL (83.0-100.0); Red Blood Count 3.79 M/mcL (4.19-5.50); Red Cell Distribution Width 16.7 % (11.5-14.5)
[2020-03-20 06:22] LABS: Platelet Count 61 K/mcL (140-400)
[2020-03-20 06:26] LABS: White Blood Count 44.5 K/mcL (4.3-11.1)
[2020-03-20 06:38] LABS: Albumin 1.9 g/dL (3.5-5.7); Albumin/Globulin Ratio 0.6 (1.1-2.2); Bilirubin,Total 0.9 mg/dL (0.3-1.0); Calcium 9.7 mg/dL (8.6-10.3); Globulin 3.3 g/dL (2.4-3.5); Total Protein 5.2 g/dL (6.4-8.9)
[2020-03-20 06:49] LABS: Anisocytosis 1+ (Not Present); Lymphocytes # 1.8 K/mcL (0.6-4.6); Monocytes # 0.9 K/mcL (0.0-1.3); Neutrophils # 41.8 K/mcL (1.6-8.9); Toxic Granulation Present (Not Present)
[2020-03-20 06:50] LABS: Platelet Estimate Decreased (Normal); Reactive Lymphocytes Present (Not Present)
[2020-03-20] MEDS ORDERED: methylPREDNISolone 125 MG/2 ML VIAL IVP ONE (07:13)
[2020-03-20] MEDS ORDERED: Isovue-370 500 ML BOTTLE IVP ONE (07:14)
[2020-03-20] MEDS ORDERED: Albumin Human 5% 12.5 GM/250 ML IV.SOLN IVC SCH (07:30)
[2020-03-20] MEDS ORDERED: Morphine Sulfate 2 MG/ML SYRINGE IVP PRN ×3 (07:37→12:54)
[2020-03-20] MEDS: Insulin LISPRO 300 UNITS/3 ML VIAL SUBQ SCH ×2 (07:40→11:33)
[2020-03-20] MEDS ORDERED: Piperacillin/Tazobactam 3.375 GM in 0.9 % Sodium Chloride Mini Bag 100 ML IVPB SCH (08:00)
[2020-03-20] MEDS ORDERED: MetroNIDAZOLE 500 MG/100 ML 500 MG/100 ML BAG IVPB SCH (08:00)
[2020-03-20 08:13] LABS: Troponin I 0.06 ng/mL (< 0.04)
[2020-03-20] MEDS ORDERED: Ondansetron ODT 4 MG TAB.RAPDIS SL PRN ×2 (09:30→12:54)
[2020-03-20] MEDS ORDERED: Acetaminophen 325 MG TABLET PO PRN ×2 (09:30→12:54)
[2020-03-20] MEDS ORDERED: *HR* LORazepam Oral Conc 2 MG/ML PO PRN ×2 (09:30→12:54)
[2020-03-20] MEDS ORDERED: Albuterol 2.5 MG/3 ML NEBULIZER IH PRN ×2 (09:30→12:54)
[2020-03-20] MEDS ORDERED: Pantoprazole 40 MG VIAL IVP SCH (10:00)
[2020-03-20] MEDS ORDERED: Budesonide/Formoterol 80/4.5 1 PUFF INH IH SCH ×2 (10:00→22:00)
[2020-03-20 10:22] VITALS: BP 105/91
== END 2020-03-20 14:48 | disposition expired | DRG 871 ==
LOC: EMEROOARM 13:34 → ICNU 13:34
PROVIDERS: ADMIT Internal Medicine; ATTEND Internal Medicine